=== PATIENT | male | born 1975 | race Caucasian/White ===

== ENCOUNTER 2016-06-05 22:23 | Observation (INO) | payer OTHER ==
[2016-06-05] MEDS ORDERED: Pantoprazole 40 MG Vial IVPUSH ONE (22:39)
[2016-06-05] MEDS ORDERED: Ondansetron 4 MG/2 ML SDV IVPUSH ONE (22:39)
[2016-06-05] MEDS ORDERED: Sodium Chloride 0.9% 1,000 ML IV ONE (22:39)
[2016-06-05] MEDS ORDERED: Sodium Chloride 0.9% 10 ML Syringe FLUSH PRN (22:39)
[2016-06-05] MEDS ORDERED: HYDROmorphone 2 MG/ML Syringe IVPUSH ONE (22:39)
[2016-06-05] MEDS ORDERED: Sodium Chloride 0.9% 2.5 ML Syringe FLUSH PRN (22:39)
--- NOTE | 2016-06-05 22:43 | EDM.PDOC ---
ED HPI GENERAL MEDICAL PROBLEM - General Chief Complaint: Abdominal Pain Stated Complaint: SEVERE ABDOMINAL PAIN Time Seen by Provider: 06/05/16 22:34 - History of Present Illness INITIAL COMMENTS - FREE TEXT/NARRATIVE: HISTORY AND PHYSICAL: History of present illness: The patient is a 41-year-old male with a history of hypertension and anxiety and several ER visits in the past for atypical chest pain who presents with severe upper abdominal pain that started one to 2 hours ago. He said that he ate fried srping rolls earlier and has been pushing hydration and does not drink caffeine to his anxiety and denies alcohol use. He states the pain started suddenly and then accelerated over the last one hour and as a bandlike sensation in the upper abdomen extending from the left upper abdomen to the epigastrium and to the right side. Patient denies any surgical history is an says he's always had some issues with his bowels and constipation. He only a small bowel movement today but had a normal one yesterday. He said his stool dark today but there was no blood. He's had some dry heaves and feels nauseated. He has no flank pain or urinary complaints no fevers chills chest pain or shortness of breath. Review of systems: As per history of present illness and below otherwise all systems reviewed and negative. Past medical history: As per history of present illness and as reviewed below otherwise noncontributory. Surgical history: As per history of present illness and as reviewed below otherwise noncontributory. Social history: No reported history of drug or alcohol abuse. Family history: As per history of present illness and as reviewed below otherwise noncontributory. Physical exam: General: Well-developed uncomfortable man who is nontoxic but moves easily in ED. Vital signs blood noted by me. HEENT: Atraumatic, normocephalic, pupils reactive, negative for conjunctival pallor or scleral icterus, mucous membranes moist, throat clear, neck supple, nontender, trachea midline. Lungs: Clear to auscultation, breath sounds equal bilaterally, chest nontender. Heart: S1S2, regular, negative for clicks, rubs, or JVD. Abdomen: Soft, hypoactive bowel sounds, distended but no tympany on percussion. He has tenderness throughout the entire upper abdomen and diffusely throughout but more localized to the upper bilateral upper abdomen. He has some voluntary guarding but no involuntary guarding or rebound Negative for masses or hepatosplenomegaly. Negative for costovertebral tenderness. Pelvis: Stable nontender. Genitourinary: Deferred. Rectal: Normal tone scant stool in the vault which was heme-negative Extremities: Atraumatic, negative for cords or calf pain. Neurovascular unremarkable. Neuro: Awake, alert, oriented. Cranial nerves II through XII unremarkable. Cerebellum unremarkable. Motor and sensory unremarkable throughout. Exam nonfocal. Patient and the ED has been having bilious vomit without coffee grounds or blood Diagnostics: CBC CMP amylase lipase lactic acid UA CT scan of the abdomen and pelvis Therapeutics: IV fluids Zofran Protonix Dilaudid Mefoxin 0050: Case was discussed with our surgeon Dr. Paula as CT indicates acute appendicitis. He would like me to give Mefoxin 2 g and admitted the patient and to operate on him later this morning. The patient is aware of all testing results and I will give him some more pain medications and plan for the observation admission Impression: Acute appendicitis Definitive disposition and diagnosis as appropriate pending reevaluation and review of above. Upper Abdomen Pain Score (Numeric/FACES): 10 - Related Data Allergies Allergy/AdvReac Type Severity Reaction Status Date / Time No Known Allergies Allergy Verified 06/05/16 22:33 Home Meds: Home Meds ClonazePAM [KlonoPIN] 1 mg PO QAM 06/08/13 [History] Gabapentin [Neurontin] 300 mg PO BID 06/08/13 [History] Doxylamine Succinate [Unisom Sleep Aid] 2 tab PO BEDTIME 08/15/14 [History] PARoxetine [Paxil] 10 mg PO DAILY 08/15/14 [History] ClonazePAM [KlonoPIN] 0.5 mg PO BEDTIME 09/09/14 [History] Lisinopril 2.5 mg PO DAILY 12/19/14 [History] Past Medical History - Past Health History Medical/Surgical History: Denies Medical/Surgical History HEENT History: Reports: None Cardiovascular History: Reports: Hypertension, Other (see below) Other Cardiovascular History: chest pain and SOB r/t anxiety Respiratory History: Reports: SOB, Other (see below) Other Respiratory History: SOB r/t anxiety Gastrointestinal History: Reports: Chronic diarrhea, GERD, Other (see below) Other Gastrointestinal History: Bleeding from the rectum Genitourinary History: Reports: None Musculoskeletal History: Reports: Fracture Other Musculoskeletal History: dislocation left elbow Neurological History: Reports: Migraines Psychiatric History: Reports: Anxiety, Depression, Panic attack, Psych Hospitalization(s) Endocrine/Metabolic History: Reports: None Hematologic History: Reports: None Immunologic History: Reports: None Oncologic (Cancer) History: Reports: None Dermatologic History: Reports: None - Infectious Disease History Infectious Disease History: Reports: Chicken pox - Past Surgical History HEENT Surgical History: Reports: Oral surgery, Tonsillectomy GI Surgical History: Reports: Colonoscopy Musculoskeletal Surgical History: Reports: Arthroscopic knee Social & Family History - Family History Family Medical History: Noncontributory - Tobacco Use Smoking Status *Q: Current Every Day Smoker Years of Tobacco use: 22 Packs/Tins Daily: 1 Used Tobacco, but Quit: No Second Hand Smoke Exposure: No - Alcohol Use Days Per Week of Alcohol Use: 0 - Recreational Drug Use Recreational Drug Use: No ED ROS GENERAL - Review of Systems Review Of Systems: ROS reveals no pertinent complaints other than HPI. ED EXAM, GENERAL - Physical Exam Exam: See Below (See dictation) Course - Vital Signs Last Recorded V/S: Last Vital Signs Temp 36.6 C 06/05/16 22:26 Pulse 73 06/05/16 22:26 Resp 19 06/05/16 22:26 BP 154/104 H 06/05/16 22:26 Pulse Ox 98 06/05/16 22:26 - Orders/Labs/Meds Orders: Active Orders 24 hr Category Date Time Status Patient Status [ADT] Stat ADT 06/06/16 00:53 Ordered Abdomen Pelvis w Cont [CT] Stat Exams 06/05/16 22:39 Taken HYDROmorphone [Dilaudid] Med 06/06/16 00:56 Once 1 mg IVPUSH ONETIME ONE Sodium Chloride 0.9% [Saline Flush] Med 06/05/16 22:39 Active 10 ml FLUSH ASDIRECTED PRN Sodium Chloride 0.9% [Saline Flush] Med 06/05/16 22:39 Active 2.5 ml FLUSH ASDIRECTED PRN cefOXitin [Mefoxin in Dextrose,Iso-Osm 2 GM/50 ML] 2 gm Med 06/06/16 00:51 Ordered Premix Bag 1 bag IV ONETIME Saline Lock Insert [OM.PC] Stat Oth 06/05/16 22:38 Ordered Medication Orders Cefoxitin Sodium 2 gm/ Premix 50 mls @ 100 mls/hr IV ONETIME ONE Stop: 06/06/16 01:20 Sodium Chloride (Saline Flush) 10 ml FLUSH ASDIRECTED PRN PRN Reason: Keep Vein Open Sodium Chloride (Saline Flush) 2.5 ml FLUSH ASDIRECTED PRN PRN Reason: Keep Vein Open Labs: Laboratory Tests 06/05/16 06/05/16 06/05/16 Range/Units 22:53 22:53 22:53 WBC 16.12 H (4.0-11.0) K/uL RBC 5.21 (4.50-5.90) M/uL Hgb 15.3 (13.0-17.0) g/dL Hct 44.8 (38.0-50.0) % MCV 86.0 (80.0-98.0) fL MCH 29.4 (27.0-32.0) pg MCHC 34.2 (31.0-37.0) g/dL RDW Std Deviation 43.1 (28.0-62.0) fl RDW Coeff of [place] 14 (11.0-15.0) % Plt Count 223 (150-400) K/uL MPV 10.40 (7.40-12.00) fL Neut % (Auto) 73.5 (48.0-80.0) % Lymph % (Auto) 19.9 (16.0-40.0) % Lucas % (Auto) 5.2 (0.0-15.0) % Eos % (Auto) 1.2 (0.0-7.0) % Baso % (Auto) 0.2 (0.0-1.5) % Neut # (Auto) 11.9 H (1.4-5.7) K/uL Lymph # (Auto) 3.2 H (0.6-2.4) K/uL Lucas # (Auto) 0.8 (0.0-0.8) K/uL Eos # (Auto) 0.2 (0.0-0.7) K/uL Baso # (Auto) 0.0 (0.0-0.1) K/uL Nucleated RBC % 0.0 /100WBC Nucleated RBCs # 0 K/uL Lactate 1.4 (0.20-2.00) mmol/L Sodium 139 (136-146) mmol/L Potassium 3.9 (3.5-5.1) mmol/L Chloride 108 (98-110) mmol/L Carbon Dioxide 19 L (21-31) mmol/L BUN 7 (6.0-23.0) mg/dL Creatinine 0.9 (0.6-1.5) mg/dL Est Cr Clr Drug Dosing 94.91 mL/min Estimated GFR (MDRD) > 60.0 ml/min Glucose 101 (60-110) mg/dL Calcium 8.7 L (8.8-10.8) mg/dL Total Bilirubin 0.3 (0.1-1.5) mg/dL AST 23 (5-40) IU/L ALT 32 (8-54) IU/L Alkaline Phosphatase 91 (40-150) Total Protein 7.4 (6.0-8.0) g/dL Albumin 4.5 (3.5-5.0) g/dL Globulin 2.9 (2.0-3.5) g/dL Albumin/Globulin Ratio 1.6 (1.3-2.8) Amylase 42 (10-90) U/L Lipase 18 (7-80) U/L Urine Color Urine Appearance Urine pH (5.0-8.0) Ur Specific [place] (1.001-1.035) Urine Protein (NEGATIVE) mg/dL Urine Glucose (UA) (NEGATIVE) mg/dL Urine Ketones (NEGATIVE) mg/dL Urine Occult Blood (NEGATIVE) Urine Nitrite (NEGATIVE) Urine Bilirubin (NEGATIVE) Urine Urobilinogen (<2.0) EU/dL Ur Leukocyte Esterase (NEGATIVE) Urine RBC (0-2/HPF) Urine WBC (0-5/HPF) Ur Epithelial Cells (NONE-FEW) Urine Bacteria (NEGATIVE) Urine Mucus (NONE-MOD) 06/05/16 Range/Units 23:50 WBC (4.0-11.0) K/uL RBC (4.50-5.90) M/uL Hgb (13.0-17.0) g/dL Hct (38.0-50.0) % MCV (80.0-98.0) fL MCH (27.0-32.0) pg MCHC (31.0-37.0) g/dL RDW Std Deviation (28.0-62.0) fl RDW Coeff of [place] (11.0-15.0) % Plt Count (150-400) K/uL MPV (7.40-12.00) fL Neut % (Auto) (48.0-80.0) % Lymph % (Auto) (16.0-40.0) % Lucas % (Auto) (0.0-15.0) % Eos % (Auto) (0.0-7.0) % Baso % (Auto) (0.0-1.5) % Neut # (Auto) (1.4-5.7) K/uL Lymph # (Auto) (0.6-2.4) K/uL Lucas # (Auto) (0.0-0.8) K/uL Eos # (Auto) (0.0-0.7) K/uL Baso # (Auto) (0.0-0.1) K/uL Nucleated RBC % /100WBC Nucleated RBCs # K/uL Lactate (0.20-2.00) mmol/L Sodium (136-146) mmol/L Potassium (3.5-5.1) mmol/L Chloride (98-110) mmol/L Carbon Dioxide (21-31) mmol/L BUN (6.0-23.0) mg/dL Creatinine (0.6-1.5) mg/dL Est Cr Clr Drug Dosing mL/min Estimated GFR (MDRD) ml/min Glucose (60-110) mg/dL Calcium (8.8-10.8) mg/dL Total Bilirubin (0.1-1.5) mg/dL AST (5-40) IU/L ALT (8-54) IU/L Alkaline Phosphatase (40-150) Total Protein (6.0-8.0) g/dL Albumin (3.5-5.0) g/dL Globulin (2.0-3.5) g/dL Albumin/Globulin Ratio (1.3-2.8) Amylase (10-90) U/L Lipase (7-80) U/L Urine Color YELLOW Urine Appearance CLEAR Urine pH 6.0 (5.0-8.0) Ur Specific [place] 1.025 (1.001-1.035) Urine Protein NEGATIVE (NEGATIVE) mg/dL Urine Glucose (UA) NEGATIVE (NEGATIVE) mg/dL Urine Ketones NEGATIVE (NEGATIVE) mg/dL Urine Occult Blood TRACE-INTACT (NEGATIVE) Urine Nitrite NEGATIVE (NEGATIVE) Urine Bilirubin NEGATIVE (NEGATIVE) Urine Urobilinogen 0.2 (<2.0) EU/dL Ur Leukocyte Esterase NEGATIVE (NEGATIVE) Urine RBC 0-2 (0-2/HPF) Urine WBC 0-1 (0-5/HPF) Ur Epithelial Cells OCCASIONAL (NONE-FEW) Urine Bacteria FEW (NEGATIVE) Urine Mucus LIGHT (NONE-MOD) Meds: Medications Generic Name Dose Route Start Last Admin Trade Name Freq PRN Reason Stop Dose Admin Cefoxitin Sodium 2 gm/ Premix 50 mls @ 100 mls/hr 06/06/16 00:51 IV 06/06/16 01:20 ONETIME ONE Sodium Chloride 10 ml 06/05/16 22:39 Saline Flush FLUSH ASDIRECTED PRN Keep Vein Open Sodium Chloride 2.5 ml 06/05/16 22:39 Saline Flush FLUSH ASDIRECTED PRN Keep Vein Open Discontinued Medications Generic Name Dose Route Start Last Admin Trade Name Freq PRN Reason Stop Dose Admin Hydromorphone HCl 1 mg 06/05/16 22:39 06/05/16 23:18 Dilaudid IVPUSH 06/05/16 22:40 1 mg ONETIME ONE Administration Sodium Chloride 1,000 mls @ 999 mls/hr 06/05/16 22:39 06/05/16 23:10 Normal Saline IV 06/05/16 23:39 999 mls/hr STAT ONE Administration Iopamidol 100 ml 06/05/16 23:56 06/06/16 00:43 Isovue-370 (76%) IVPUSH 06/05/16 23:57 100 ml ONETIME STA Administration Ondansetron HCl 4 mg 06/05/16 22:39 06/05/16 23:15 Zofran IVPUSH 06/05/16 22:40 4 mg ONETIME ONE Administration Pantoprazole Sodium 80 mg 06/05/16 22:39 06/05/16 23:24 Protonix Iv IVPUSH 06/05/16 22:40 80 mg .BOLUS ONE Administration Departure - Departure Time of Disposition: 00:59 Disposition: Refer to Observation Condition: good Clinical Impression: Appendicitis Qualifiers: Appendicitis type: acute appendicitis Acute appendicitis type: unspecified acute appendicitis type Qualified Code(s): K35.80 - Unspecified acute appendicitis Forms: ED Department Discharge - My Orders Last 24 Hours: My Active Orders 06/05/16 22:38 Saline Lock Insert [OM.PC] Stat 06/05/16 22:39 Abdomen Pelvis w Cont [CT] Stat Sodium Chloride 0.9% [Saline Flush] 10 ml FLUSH ASDIRECTED PRN Sodium Chloride 0.9% [Saline Flush] 2.5 ml FLUSH ASDIRECTED PRN 06/06/16 00:51 cefOXitin [Mefoxin in Dextrose,Iso-Osm 2 GM/50 ML] 2 gm Premix Bag 1 bag IV ONETIME 06/06/16 00:53 Patient Status [ADT] Stat 06/06/16 00:56 HYDROmorphone [Dilaudid] 1 mg IVPUSH ONETIME ONE - Assessment/Plan Last 24 Hours: My Active Orders 06/05/16 22:38 Saline Lock Insert [OM.PC] Stat 06/05/16 22:39 Abdomen Pelvis w Cont [CT] Stat Sodium Chloride 0.9% [Saline Flush] 10 ml FLUSH ASDIRECTED PRN Sodium Chloride 0.9% [Saline Flush] 2.5 ml FLUSH ASDIRECTED PRN 06/06/16 00:51 cefOXitin [Mefoxin in Dextrose,Iso-Osm 2 GM/50 ML] 2 gm Premix Bag 1 bag IV ONETIME 06/06/16 00:53 Patient Status [ADT] Stat 06/06/16 00:56 HYDROmorphone [Dilaudid] 1 mg IVPUSH ONETIME ONE
[2016-06-05 23:23] LABS: CHLORIDE,CL 108 mmol/L (98-110); SODIUM,NA 139 mmol/L (136-146)
[2016-06-05] MEDS ORDERED: Iopamidol 755 Mg/ML 100 ML Bottle IVPUSH STA (23:56)
[2016-06-06] MEDS ORDERED: cefOXitin 2 GM in Premix Bag 1 BAG IV ONE (00:51)
[2016-06-06] MEDS ORDERED: HYDROmorphone 2 MG/ML Syringe IVPUSH ONE ×2 (00:56→08:44)
[2016-06-06] MEDS: Lactated Ringers 1,000 ML IV SCH ×2 (01:40→13:54)
[2016-06-06] MEDS ORDERED: LORazepam 2 MG/ML MDV IVPUSH ONE (02:48)
[2016-06-06] MEDS ORDERED: Ondansetron 4 MG/2 ML SDV IVPUSH PRN ×2 (02:48→09:21)
[2016-06-06] MEDS ORDERED: LORazepam 2 MG/ML MDV IVPUSH PRN (02:52)
[2016-06-06] MEDS: Morphine 2 MG/ML Syringe IVPUSH PRN ×5 (03:05→07:19)
[2016-06-06] MEDS ORDERED: Lidocaine 2% 5 ML SDV ONE (07:33)
[2016-06-06] MEDS ORDERED: fentaNYL 250 MCG/5 ML SDV ONE (07:34)
[2016-06-06] MEDS ORDERED: Midazolam 1 MG/ML 2 ML SDV ONE (07:34)
[2016-06-06] MEDS ORDERED: Propofol 200 MG/20 ML SDV ONE (07:34)
--- NOTE | 2016-06-06 07:35 | PCM.HP ---
H&P History of Present Illness - General Date of Service: 06/06/16 Admit Problem/Dx: Abdominal pain, with nausea, and vomiting. Source of Information: Patient History Limitations: Reports: No limitations - History of Present Illness Symptom Onset Date: 06/05/16 Symptom Onset Time: 19:00 Location: Reports: abdomen Quality: Reports: Ache, Pressure Severity: moderate Improves with: Reports: Rest Worsens with: Reports: Movement Context: Reports: sick contact Associated Symptoms: Reports: loss of appetite, nausea/vomiting. Denies: fever/ chills Upper Abdomen Pain Score (Numeric/FACES): 10 - Related Data Allergies/Adverse Reactions: Allergies Allergy/AdvReac Type Severity Reaction Status Date / Time No Known Allergies Allergy Verified 06/05/16 22:33 Home Medications: Home Meds ClonazePAM [KlonoPIN] 1 mg PO QAM 06/08/13 [History] Gabapentin [Neurontin] 300 mg PO BID 06/08/13 [History] Doxylamine Succinate [Unisom Sleep Aid] 2 tab PO BEDTIME 08/15/14 [History] PARoxetine [Paxil] 10 mg PO DAILY 08/15/14 [History] ClonazePAM [KlonoPIN] 0.25 mg PO BEDTIME 06/06/16 [History] Lisinopril [Prinivil] 10 mg PO DAILY 06/06/16 [History] Past Medical History - Past Health History Medical/Surgical History: Denies Medical/Surgical History HEENT History: Reports: None Cardiovascular History: Reports: Hypertension, Other (see below) Other Cardiovascular History: chest pain and SOB r/t anxiety Respiratory History: Reports: SOB, Other (see below) Other Respiratory History: SOB r/t anxiety Gastrointestinal History: Reports: Chronic diarrhea, GERD, Other (see below) Other Gastrointestinal History: Bleeding from the rectum Genitourinary History: Reports: None Musculoskeletal History: Reports: Fracture Other Musculoskeletal History: dislocation left elbow Neurological History: Reports: Migraines Psychiatric History: Reports: Anxiety, Depression, Panic attack, Psych Hospitalization(s) Endocrine/Metabolic History: Reports: None Hematologic History: Reports: None Immunologic History: Reports: None Oncologic (Cancer) History: Reports: None Dermatologic History: Reports: None - Infectious Disease History Infectious Disease History: Reports: Chicken pox - Past Surgical History HEENT Surgical History: Reports: Oral surgery, Tonsillectomy GI Surgical History: Reports: Colonoscopy Musculoskeletal Surgical History: Reports: Arthroscopic knee Social & Family History - Family History Family Medical History: Noncontributory - Tobacco Use Smoking Status *Q: Current Every Day Smoker Years of Tobacco use: 22 Packs/Tins Daily: 1 Used Tobacco, but Quit: No Second Hand Smoke Exposure: Yes - Caffeine Use Caffeine Use: Reports: None - Alcohol Use Days Per Week of Alcohol Use: 0 - Recreational Drug Use Recreational Drug Use: No H&P Review of Systems - Review of Systems: Review Of Systems: See Below General: Denies: fever, chills HEENT: Reports: no symptoms Pulmonary: Denies: Shortness of Breath, Wheezing Cardiovascular: Denies: chest pain Gastrointestinal: Reports: Abdominal pain, Anorexia, Decreased appetite, Nausea , Vomiting. Denies: Black stool, Bloody stool, Constipation, Diarrhea Genitourinary: Reports: no symptoms Musculoskeletal: Reports: no symptoms Skin: Reports: no symptoms Psychiatric: Reports: anxiety Neurological: Reports: No Symptoms Hematologic/Lymphatic: Reports: no symptoms Immunologic: Reports: no symptoms Exam - Exam Exam: See Below - Vital Signs Vital Signs: Last Vital Signs Temp 98.2 F 06/06/16 04:00 Pulse 61 06/06/16 04:00 Resp 16 06/06/16 04:00 BP 127/83 06/06/16 04:00 Pulse Ox 96 06/06/16 04:00 Weight: 177 lb 11.2 oz - Exam General: alert, oriented, cooperative, moderate distress HEENT: Conjunctiva clear, EACs clear, EOMI, Pupils equal, Pupils reactive Neck: supple, trachea midline Lungs: Clear to auscultation, Normal respiratory effort Cardiovascular: regular rate, regular rhythm, normal S1, normal S2. No: tachycardia Abdomen: normal bowel sounds, soft, peritoneal signs, guarding, rebound, tenderness, McBurney's sign, Rovsing's sign. No: distention, rigidity (Male) Exam: No hernia Rectal (Males) Exam: Deferred Back Exam: normal inspection Extremities: normal inspection, normal pulses Skin: warm, dry, intact Neurological: cranial nerves intact, reflexes equal bilateral Psychiatric: alert, normal affect, normal mood, anxious - Patient Data Result Diagrams: 06/05/16 22:53 06/05/16 22:53 *Q Meaningful Use (ADM) - VTE *Q VTE Criteria *Q: - Stroke *Q Stroke Criteria *Q: - AMI *Q AMI Criteria *Q: - Problem List (1) Appendicitis SNOMED Code(s): 28865374 ICD Code: K37 - UNSPECIFIED APPENDICITIS Status: Acute Priority: High Current Visit: Yes Qualifiers: Appendicitis type: acute appendicitis Acute appendicitis type: unspecified acute appendicitis type Qualified Code(s): K35.80 - Unspecified acute appendicitis (2) Anxiety disorder SNOMED Code(s): 231272592 ICD Code: F41.9 - ANXIETY DISORDER, UNSPECIFIED Status: Acute Priority: Medium Current Visit: Yes Onset Date: 08/28/13 Problem List Initiated/Reviewed/Updated: Yes Orders Last 24hrs: Active Orders 24 hr Category Date Time Status Antiembolic Devices [RC] PER UNIT ROUTINE Care 06/06/16 01:13 Active Nothing per Oral Now Diet [DIET] Diet 06/06/16 Breakfast Active LORazepam [Ativan] Med 06/06/16 02:52 Active 1 mg IVPUSH BID PRN Lactated Ringers [Ringers, Lactated] 1,000 ml Med 06/06/16 01:45 Active IV ASDIRECTED Morphine Med 06/06/16 02:48 Active See Dose Instructions IVPUSH Q1H PRN Ondansetron [Zofran] Med 06/06/16 02:48 Active 4 mg IVPUSH Q4H PRN Antiembolic Hose [OM.PC] Routine Oth 06/06/16 01:13 Ordered SCD [Sequential Compression Device] [OM.PC] Routine Oth 06/06/16 01:13 Ordered Code Status [Resuscitation Status] Routine Resus Stat 06/06/16 03:22 Ordered Medication Orders Lactated Ringer's (Ringers, Lactated) 1,000 mls @ 125 mls/hr IV ASDIRECTED NÉSTOR Last Admin: 06/06/16 01:40 Dose: 125 mls/hr Lorazepam (Ativan) 1 mg IVPUSH BID PRN PRN Reason: Anxiety Morphine Sulfate (Morphine) 0 mg IVPUSH Q1H PRN PRN Reason: Pain Last Admin: 06/06/16 07:19 Dose: 2 mg Admin: 06/06/16 06:56 Dose: 2 mg Admin: 06/06/16 05:50 Dose: 1.5 mg Admin: 06/06/16 04:19 Dose: 1 mg Admin: 06/06/16 03:05 Dose: 1 mg Ondansetron HCl (Zofran) 4 mg IVPUSH Q4H PRN PRN Reason: Nausea/Vomiting Last Admin: 06/06/16 05:54 Dose: 4 mg Sodium Chloride (Saline Flush) 10 ml FLUSH ASDIRECTED PRN PRN Reason: Keep Vein Open Last Admin: 06/06/16 01:38 Dose: 10 ml Sodium Chloride (Saline Flush) 2.5 ml FLUSH ASDIRECTED PRN PRN Reason: Keep Vein Open Assessment/Plan Comment:: Acute appendicitis. CT scan did not reveal any periappendiceal fluid or rupture. Laparoscopic appendectomy, possible open appendectomy. Both operative procedures, along with the risks, including, but not limited to, bleeding, infection, pneumonia, deep venous thrombosis, pulmonary emboli, myocardial infarction, and adjacent organ injury have been reviewed with the patient who voices understanding, offers no questions and agrees to proceed.
[2016-06-06] MEDS ORDERED: Ketorolac 30 MG/ML SDV ONE (07:38)
[2016-06-06] MEDS ORDERED: Rocuronium 10 MG/ML 10 ML Syringe ONE (07:38)
[2016-06-06] MEDS ORDERED: Neostigmine Methylsulfate 1 MG/ML 5 ML Syringe ONE (07:38)
[2016-06-06] MEDS ORDERED: Ondansetron 4 MG/2 ML SDV ONE (07:38)
[2016-06-06] MEDS ORDERED: Succinylcholine/Normal Saline 200 MG/10 ML Syringe ONE (07:38)
[2016-06-06] MEDS ORDERED: HYDROmorphone 2 MG/ML Syringe ONE (07:44)
[2016-06-06] MEDS ORDERED: Bupivacaine 0.5% 30 ML SDV ONE (07:47)
[2016-06-06] MEDS ORDERED: ceFAZolin 1 GM Vial ONE (07:47)
[2016-06-06] MEDS ORDERED: cefOXitin 1 GM Vial ONE (08:21)
--- NOTE | 2016-06-06 08:36 | PCM.PREANE ---
Preanesthetic Assessment - Anesthesia/Transfusion/Family Hx Anesthesia History: Prior Anesthesia Without Reaction Type of Anesthesia Reaction: Unknown Family History of Anesthesia Reaction: No Transfusion History: No Prior Transfusion(s) Intubation History: Unknown - Review of Systems General: No Symptoms Pulmonary: No Symptoms Cardiovascular: No Symptoms Gastrointestinal: Abdominal pain Neurological: No Symptoms Other: Reports: None - Physical Assessment O2 Sat by Pulse Oximetry: 96 Respiratory Rate: 18 Vital Signs: Last Vital Signs Temp 37.0 C 06/06/16 08:28 Pulse 89 06/06/16 08:28 Resp 18 06/06/16 08:28 BP 133/78 06/06/16 08:28 Pulse Ox 96 06/06/16 08:28 Height: 1.65 m Weight: 80.603 kg ASA Class: 2E Mental Status: Alert & Oriented x3 Airway Class: Mallampati = 2 Dentition: Reports: Normal Dentition Thyro-Mental Finger Breadths: 3 Mouth Opening Finger Breadths: 2 ROM/Head Extension: Limited/Partial Lungs: Clear to auscultation, Normal respiratory effort Cardiovascular: Regular Rate, Regular Rhythm - Lab Values: Laboratory Last Values WBC 16.12 K/uL (4.0-11.0) H 06/05/16 22:53 RBC 5.21 M/uL (4.50-5.90) 06/05/16 22:53 Hgb 15.3 g/dL (13.0-17.0) 06/05/16 22:53 Hct 44.8 % (38.0-50.0) 06/05/16 22:53 MCV 86.0 fL (80.0-98.0) 06/05/16 22:53 MCH 29.4 pg (27.0-32.0) 06/05/16 22:53 MCHC 34.2 g/dL (31.0-37.0) 06/05/16 22:53 RDW Std Deviation 43.1 fl (28.0-62.0) 06/05/16 22:53 RDW Coeff of [place] 14 % (11.0-15.0) 06/05/16 22:53 Plt Count 223 K/uL (150-400) 06/05/16 22:53 MPV 10.40 fL (7.40-12.00) 06/05/16 22:53 Neut % (Auto) 73.5 % (48.0-80.0) 06/05/16 22:53 Lymph % (Auto) 19.9 % (16.0-40.0) 06/05/16 22:53 [place] % (Auto) 5.2 % (0.0-15.0) 06/05/16 22:53 Eos % (Auto) 1.2 % (0.0-7.0) 06/05/16 22:53 Baso % (Auto) 0.2 % (0.0-1.5) 06/05/16 22:53 Neut # (Auto) 11.9 K/uL (1.4-5.7) H 06/05/16 22:53 Lymph # (Auto) 3.2 K/uL (0.6-2.4) H 06/05/16 22:53 [place]ley # (Auto) 0.8 K/uL (0.0-0.8) 06/05/16 22:53 Eos # (Auto) 0.2 K/uL (0.0-0.7) 06/05/16 22:53 Baso # (Auto) 0.0 K/uL (0.0-0.1) 06/05/16 22:53 Nucleated RBC % 0.0 /100WBC 06/05/16 22:53 Nucleated RBCs # 0 K/uL 06/05/16 22:53 Lactate 1.4 mmol/L (0.20-2.00) 06/05/16 22:53 Sodium 139 mmol/L (136-146) 06/05/16 22:53 Potassium 3.9 mmol/L (3.5-5.1) 06/05/16 22:53 Chloride 108 mmol/L (98-110) 06/05/16 22:53 Carbon Dioxide 19 mmol/L (21-31) L 06/05/16 22:53 BUN 7 mg/dL (6.0-23.0) 06/05/16 22:53 Creatinine 0.9 mg/dL (0.6-1.5) 06/05/16 22:53 Est Cr Clr Drug Dosing 94.91 mL/min 06/05/16 22:53 Estimated GFR (MDRD) > 60.0 ml/min 06/05/16 22:53 Glucose 101 mg/dL (60-110) 06/05/16 22:53 Calcium 8.7 mg/dL (8.8-10.8) L 06/05/16 22:53 Total Bilirubin 0.3 mg/dL (0.1-1.5) 06/05/16 22:53 AST 23 IU/L (5-40) 06/05/16 22:53 ALT 32 IU/L (8-54) 06/05/16 22:53 Alkaline Phosphatase 91 (40-150) 06/05/16 22:53 Total Protein 7.4 g/dL (6.0-8.0) 06/05/16 22:53 Albumin 4.5 g/dL (3.5-5.0) 06/05/16 22:53 Globulin 2.9 g/dL (2.0-3.5) 06/05/16 22:53 Albumin/Globulin Ratio 1.6 (1.3-2.8) 06/05/16 22:53 Amylase 42 U/L (10-90) 06/05/16 22:53 Lipase 18 U/L (7-80) 06/05/16 22:53 Urine Color YELLOW 06/05/16 23:50 Urine Appearance CLEAR 06/05/16 23:50 Urine pH 6.0 (5.0-8.0) 06/05/16 23:50 Ur Specific [place] 1.025 (1.001-1.035) 06/05/16 23:50 Urine Protein NEGATIVE mg/dL (NEGATIVE) 06/05/16 23:50 Urine Glucose (UA) NEGATIVE mg/dL (NEGATIVE) 06/05/16 23:50 Urine Ketones NEGATIVE mg/dL (NEGATIVE) 06/05/16 23:50 Urine Occult Blood TRACE-INTACT (NEGATIVE) 06/05/16 23:50 Urine Nitrite NEGATIVE (NEGATIVE) 06/05/16 23:50 Urine Bilirubin NEGATIVE (NEGATIVE) 06/05/16 23:50 Urine Urobilinogen 0.2 EU/dL (<2.0) 06/05/16 23:50 Ur Leukocyte Esterase NEGATIVE (NEGATIVE) 06/05/16 23:50 Urine RBC 0-2 (0-2/HPF) 06/05/16 23:50 Urine WBC 0-1 (0-5/HPF) 06/05/16 23:50 Ur Epithelial Cells OCCASIONAL (NONE-FEW) 06/05/16 23:50 Urine Bacteria FEW (NEGATIVE) 06/05/16 23:50 Urine Mucus LIGHT (NONE-MOD) 06/05/16 23:50 - Allergies Allergies/Adverse Reactions: Allergies Allergy/AdvReac Type Severity Reaction Status Date / Time No Known Allergies Allergy Verified 06/05/16 22:33 - Blood Blood Available: No - Acknowledgements Anesthesia Type Planned: General Anesthesia Pt an Appropriate Candidate for the Planned Anesthesia: Yes Alternatives and Risks of Anesthesia Discussed w Pt/Guardian: Yes Pt/Guardian Understands and Agrees with Anesthesia Plan: Yes PreAnesthesia Questionnaire - Past Health History Medical/Surgical History: Denies Medical/Surgical History HEENT History: Reports: None Cardiovascular History: Reports: Hypertension, Other (see below) Other Cardiovascular History: chest pain and SOB r/t anxiety Respiratory History: Reports: SOB, Other (see below) Other Respiratory History: SOB r/t anxiety Gastrointestinal History: Reports: Chronic diarrhea, GERD, Other (see below) Other Gastrointestinal History: Bleeding from the rectum Genitourinary History: Reports: None Musculoskeletal History: Reports: Fracture Other Musculoskeletal History: dislocation left elbow Neurological History: Reports: Migraines Psychiatric History: Reports: Anxiety, Depression, Panic attack, Psych Hospitalization(s) Endocrine/Metabolic History: Reports: None Hematologic History: Reports: None Immunologic History: Reports: None Oncologic (Cancer) History: Reports: None Dermatologic History: Reports: None - Infectious Disease History Infectious Disease History: Reports: Chicken pox - Past Surgical History HEENT Surgical History: Reports: Oral surgery, Tonsillectomy GI Surgical History: Reports: Colonoscopy Musculoskeletal Surgical History: Reports: Arthroscopic knee (left knee), Other (see below) (left elbow dislocation) - SUBSTANCE USE Smoking Status *Q: Current Every Day Smoker Tobacco Use Within Last Twelve Months: Cigarettes Second Hand Smoke Exposure: Yes Days Per Week of Alcohol Use: 0 Recreational Drug Use History: No - HOME MEDS Home Medications: Home Meds ClonazePAM [KlonoPIN] 1 mg PO QAM 06/08/13 [History] Gabapentin [Neurontin] 300 mg PO BID 06/08/13 [History] Doxylamine Succinate [Unisom Sleep Aid] 2 tab PO BEDTIME 08/15/14 [History] PARoxetine [Paxil] 10 mg PO DAILY 08/15/14 [History] ClonazePAM [KlonoPIN] 0.25 mg PO BEDTIME 06/06/16 [History] Lisinopril [Prinivil] 10 mg PO DAILY 06/06/16 [History] - CURRENT (IN HOUSE) MEDS Current Meds: Current Medications Lactated Ringer's (Ringers, Lactated) 1,000 mls @ 125 mls/hr IV ASDIRECTED NÉSTOR Last Admin: 06/06/16 01:40 Dose: 125 mls/hr Lorazepam (Ativan) 1 mg IVPUSH BID PRN PRN Reason: Anxiety Morphine Sulfate (Morphine) 0 mg IVPUSH Q1H PRN PRN Reason: Pain Last Admin: 06/06/16 07:19 Dose: 2 mg Ondansetron HCl (Zofran) 4 mg IVPUSH Q4H PRN PRN Reason: Nausea/Vomiting Last Admin: 06/06/16 05:54 Dose: 4 mg Sodium Chloride (Saline Flush) 10 ml FLUSH ASDIRECTED PRN PRN Reason: Keep Vein Open Last Admin: 06/06/16 01:38 Dose: 10 ml Sodium Chloride (Saline Flush) 2.5 ml FLUSH ASDIRECTED PRN PRN Reason: Keep Vein Open Discontinued Medications Bupivacaine HCl (Marcaine 0.5%) Confirm Administered Dose 30 ml .ROUTE .STK-MED ONE Stop: 06/06/16 07:48 Cefazolin Sodium (Ancef) Confirm Administered Dose 1 gm .ROUTE .STK-MED ONE Stop: 06/06/16 07:48 Cefoxitin Sodium (Mefoxin) Confirm Administered Dose 1 gm .ROUTE .STK-MED ONE Stop: 06/06/16 08:22 Fentanyl (Sublimaze) Confirm Administered Dose 250 mcg .ROUTE .STK-MED ONE Stop: 06/06/16 07:35 Glycopyrrolate () Confirm Administered Dose 1 mg .ROUTE .STK-MED ONE Stop: 06/06/16 07:39 Hydromorphone HCl (Dilaudid) 1 mg IVPUSH ONETIME ONE Stop: 06/05/16 22:40 Last Admin: 06/05/16 23:18 Dose: 1 mg Hydromorphone HCl (Dilaudid) 1 mg IVPUSH ONETIME ONE Stop: 06/06/16 00:57 Last Admin: 06/06/16 01:38 Dose: 1 mg Hydromorphone HCl (Dilaudid) Confirm Administered Dose 2 mg .ROUTE .STK-MED ONE Stop: 06/06/16 07:45 Sodium Chloride (Normal Saline) 1,000 mls @ 999 mls/hr IV STAT ONE Stop: 06/05/16 23:39 Last Admin: 06/05/16 23:10 Dose: 999 mls/hr Cefoxitin Sodium 2 gm/ Premix 50 mls @ 100 mls/hr IV ONETIME ONE Stop: 06/06/16 01:20 Last Admin: 06/06/16 01:42 Dose: 100 mls/hr Iopamidol (Isovue-370 (76%)) 100 ml IVPUSH ONETIME STA Stop: 06/05/16 23:57 Last Admin: 06/06/16 00:43 Dose: 100 ml Ketorolac Tromethamine (Toradol) Confirm Administered Dose 30 mg .ROUTE .STK- MED ONE Stop: 06/06/16 07:39 Lidocaine (Xylocaine-Mpf 2%) Confirm Administered Dose 10 ml .ROUTE .STK-MED ONE Stop: 06/06/16 07:34 Lorazepam (Ativan) 1 mg IVPUSH ONETIME ONE Stop: 06/06/16 02:49 Last Admin: 06/06/16 02:58 Dose: Not Given Midazolam HCl (Versed 1 Mg/Ml) Confirm Administered Dose 2 mg .ROUTE .STK-MED ONE Stop: 06/06/16 07:35 Neostigmine Methylsulfate (Neostigmine) Confirm Administered Dose 5 mg .ROUTE .STK-MED ONE Stop: 06/06/16 07:39 Ondansetron HCl (Zofran) 4 mg IVPUSH ONETIME ONE Stop: 06/05/16 22:40 Last Admin: 06/05/16 23:15 Dose: 4 mg Ondansetron HCl (Zofran) Confirm Administered Dose 4 mg .ROUTE .STK-MED ONE Stop: 06/06/16 07:39 Pantoprazole Sodium (Protonix Iv) 80 mg IVPUSH .BOLUS ONE Stop: 06/05/16 22:40 Last Admin: 06/05/16 23:24 Dose: 80 mg Propofol (Diprivan 20 Ml) Confirm Administered Dose 400 mg .ROUTE .STK-MED ONE Stop: 06/06/16 07:35 Rocuronium [place] (Zemuron) Confirm Administered Dose 100 mg .ROUTE .STK-MED ONE Stop: 06/06/16 07:39 Succinylcholine Chloride (Succinylcholine In Ns Pf) Confirm Administered Dose 200 mg .ROUTE .STK-MED ONE Stop: 06/06/16 07:39
[2016-06-06] MEDS ORDERED: fentaNYL 100 MCG/2 ML SDV IVPUSH PRN (08:44)
[2016-06-06] MEDS ORDERED: Morphine 10 MG/ML Syringe IVPUSH PRN (09:21)
[2016-06-06] MEDS ORDERED: Acetaminophen/HYDROcodone 325-5 MG Tab PO PRN (09:21)
[2016-06-06] MEDS ORDERED: Acetaminophen 325 MG Tab PO PRN (09:21)
--- NOTE | 2016-06-06 09:25 | PCM.OPNOTE ---
- General Post-Op/Procedure Note Date of Surgery/Procedure: 06/06/16 Operative Procedure(s): Laparoscopic appendectomy Findings: Acute appendicitis without rupture Pre Op Diagnosis: Acute abdomen Post-Op Diagnosis: Acute appendicitis Anesthesia Technique: General ET tube (ASA IIE) Primary Surgeon: Joon Paula Fluid Replacement, Intraop: 1,700 EBL in mLs: 10 Condition: Fair Free Text/Narrative:: Intake & Output 06/05/16 06/06/16 06/06/16 19:59 03:59 11:59 Intake Total 0 Output Total 250 Balance -250 Dictation [id number]
[2016-06-06] MEDS ORDERED: Lactated Ringers 1,000 ML IV SCH (09:30)
[2016-06-06] MEDS ORDERED: cefOXitin 1 GM in Premix Bag 1 BAG IV SCH ×2 (09:30→16:00)
--- NOTE | 2016-06-06 10:22 | PCM.POSTAN ---
POST ANESTHESIA ASSESSMENT - MENTAL STATUS Mental Status: alert, oriented - RESPIRATORY Respiratory Status: respiratory rate WNL, airway patent, O2 saturation stable, supplemental oxygen - CARDIOVASCULAR CV Status: pulse rate WNL, blood pressure stable - GASTROINTESTINAL GI Status: no symptoms - PAIN Pain Score: 0 - POST OP HYDRATION Hydration Status: adequate & stable
--- NOTE | 2016-06-06 12:25 | CT ---
EXAM DATE: 06/06/16 PATIENT'S AGE: 41 Patient: LAYO HERNADEZ Facility: [place], [place] Site . Site : 1975 Study: CT Abdomen/Pelvis [id number]/17/2017 12:21:10 AM Ordering Physician: González Final Report: INDICATION: Abdominal pain TECHNIQUE: CT abdomen and pelvis acquired with i.v. contrast. Coronal and sagittal reformats were obtained. COMPARISON: None FINDINGS: Lower chest: Unremarkable. Liver: Unremarkable. Spleen: Unremarkable. Pancreas: Unremarkable. Gallbladder and bile ducts: Unremarkable. Kidneys: Excretion of contrast into the renal collecting systems and ureters are noted, which limits evaluation for the presence of stones. No kidney or ureteral stones and no hydronephrosis seen. Adrenal glands: Unremarkable. GI tract: Unremarkable. The base of the appendix measures 1.3 cm in diameter with mild wall thickening. No surrounding inflammatory changes or fluid collections are identified. There is hyperdense material within the lumen of the appendiceal base which may be due to inspissated barium or proteinaceous material. Vascular: Unremarkable. Lymph nodes: Unremarkable. Miscellaneous: Unremarkable. No pneumoperitoneum is seen. No significant ascites is noted. Pelvic Organs: Unremarkable. Bones: Unremarkable for age. IMPRESSION: 1. The appendix is distended with wall thickening noted. These findings are most likely due to acute appendicitis. No periappendiceal abscess is seen. Dictated by Dustin Paula MD @ 06/06/2016 12:29:22 AM Dictated by: Dustin Paula MD @ 06/06/2016 00:32:00 (Electronic Signature) Report Signed by Proxy and Original Signed Document filed in the Medical Record. [facility]
--- NOTE | 2016-06-06 13:01 | OR ---
SURGEON: Joon Paula M.D. DATE OF PROCEDURE: 06/06/2016 OPERATION PERFORMED: Laparoscopic appendectomy. ANESTHESIA: General endotracheal. ASA CLASSIFICATION: IIE. PREOPERATIVE DIAGNOSIS: Acute abdomen appendicitis by CT scan. POSTOPERATIVE DIAGNOSIS: Acute nonruptured appendicitis. DESCRIPTION OF PROCEDURE: The patient was taken to the operating room and placed on the operating table in the supine position. Time-out was called for appropriate identification of patient and procedure. Thigh-high TEDs and sequential compression boots were placed. Following satisfactory attainment of general endotracheal anesthesia, the abdomen was prepped with DuraPrep solution. Sterile drapes were applied. The skin just above the umbilicus was infiltrated with 0.5% Marcaine solution. The skin incision was made and deepened through the subcutaneous tissue obtaining hemostasis with the use of electrocautery. The Veress needle was introduced into the peritoneal cavity. Saline drop test was positive. Pneumoperitoneum was established with carbon dioxide, and the release set at 13 cm of water. With a satisfactory pneumoperitoneum, the patient was positioned, head down, and a 5 mm camera and port were placed through that incision. Under camera vision, 12 mm suprapubic port was placed after local infiltration with 0.5% Marcaine solution. The patient was now turned to the left and a 3rd port was placed in the left lower quadrant. The skin was infiltrated with 0.5% Marcaine solution. Skin incision was made and a 5 mm port was introduced through that incision. The mesoappendix was taken down with the Harmonic scalpel. The base of the appendix was acutely inflamed and was elected to ligate and transect the appendix using the Endo-DANYEL stapler with a blue load. Once the appendix was amputated, this was placed in an Endopouch. The right lower quadrant was irrigated with several 100 mL of sterile saline solution. That fluid was aspirated. The Endopouch containing appendix was removed through the 12 mm suprapubic port. Under camera vision, the 5 mm left lower quadrant port was removed and finally, the supraumbilical camera port were removed. The patient tolerated the procedure well. Following emergence from anesthesia and extubation, he was taken to recovery room in stable condition. INTRAOPERATIVE FLUID REPLACEMENT: 1700 mL of crystalloid. INTRAOPERATIVE BLOOD LOSS: 10 mL. JAMIE / PATRICIA /[id number]
[2016-06-06 14:45] VITALS: BP 108/63
--- NOTE | 2016-06-06 14:56 | PCM48HPAN ---
Post Anesthesia Note - EVALUATION WITHIN 48HRS OF ANESTHETIC Vital Signs in Normal Range: Yes Patient Participated in Evaluation: Yes Respiratory Function Stable: Yes Airway Patent: Yes Cardiovascular Function Stable: Yes Hydration Status Stable: Yes Pain Control Satisfactory: Yes Nausea and Vomiting Control Satisfactory: Yes Mental Status Recovered: Yes
--- NOTE | 2016-06-06 16:12 | PCM.DCSUM1 ---
Discharge Summary - Hospital Course HPI Initial Comments: Patient is a 41 y/o gentleman who developed onset of abdominal pain, nausea and vomiting about 7pm last night. He presented to the ER and was found to have a significant leucocytosis and appendicitis per CT scan. He was started on parenteral antibiotics and admitted to my service for definitive treatment. - Discharge Data Discharge Date: 06/06/16 Discharge Disposition: Home, Self-Care 01 Condition: Fair - Discharge Diagnosis/Problem(s) (1) Appendicitis SNOMED Code(s): 56007958 ICD Code: K37 - UNSPECIFIED APPENDICITIS Status: Acute Priority: High Current Visit: Yes Qualifiers: Appendicitis type: acute appendicitis Acute appendicitis type: with localized peritonitis Qualified Code(s): K35.3 - Acute appendicitis with localized peritonitis (2) Anxiety disorder SNOMED Code(s): 688975718 ICD Code: F41.9 - ANXIETY DISORDER, UNSPECIFIED Status: Acute Priority: Medium Current Visit: Yes Onset Date: 08/28/13 - Patient Summary/Data Operative Procedure(s) Performed: Laparoscopic appendectomy - Patient Instructions Diet: Usual Diet as Tolerated Activity: No Lifting Over 25 Pounds, Rest and Relax Today Driving: Do Not Drive (for at least 24 hours) Showering/Bathing: May Shower Wound/Incision Care: Keep Operative Site/Wound Site Clean and Dry Notify Provider of: Fever, Increased Pain, Swelling and Redness, Nausea and/or Vomiting Other/Special Instructions: See Dr. Paula on 06/21. Send Rx. - Discharge Plan Home Medications: Home Meds ClonazePAM [KlonoPIN] 1 mg PO QAM 06/08/13 [History] Gabapentin [Neurontin] 300 mg PO BID 06/08/13 [History] Doxylamine Succinate [Unisom Sleep Aid] 50 mg PO BEDTIME 08/15/14 [History] PARoxetine [Paxil] 10 mg PO DAILY 08/15/14 [History] ClonazePAM [KlonoPIN] 0.25 mg PO BEDTIME 06/06/16 [History] Lisinopril [Prinivil] 10 mg PO DAILY 06/06/16 [History] Patient Handouts: Acetaminophen; Hydrocodone tablets or capsules, Ondansetron oral dissolving tablet, Laparoscopic Appendectomy, Adult, Care After, Easy-to- Read Referrals: Joon Paula MD [Physician] - 06/22/16 9:15 am - Discharge Summary/Plan Comment DC Time >30 min.: No - General Info Date of Service: 06/06/16 Functional Status: Reports: pain controlled, tolerating diet, ambulating, urinating. Denies: new symptoms - Review of Systems General: Denies: Fever, Weakness, Fatigue HEENT: Reports: no symptoms Pulmonary: Denies: shortness of breath, cough Cardiovascular: Denies: Chest Pain Gastrointestinal: Reports: Abdominal pain (incisional pain only). Denies: Decreased appetite (tolerated po diet), Diarrhea, Difficulty swallowing, Nausea , Vomiting Genitourinary: Reports: no symptoms Musculoskeletal: Reports: no symptoms Skin: Reports: no symptoms Neurological: Reports: No Symptoms Psychiatric: Reports: no symptoms - Patient Data Vitals - Most Recent: Last Vital Signs Temp 98.3 F 06/06/16 14:00 Pulse 77 06/06/16 14:00 Resp 16 06/06/16 14:00 BP 108/63 06/06/16 14:00 Pulse Ox 96 06/06/16 14:00 Weight - Most Recent: 177 lb 11.2 oz I&O - Last 24 hours: Intake & Output 06/06/16 06/06/16 06/06/16 03:59 11:59 19:59 Intake Total 3500 Output Total 550 Balance 2950 Med Orders - Current: Current Medications Acetaminophen (Tylenol) 325 mg PO Q4H PRN PRN Reason: Fever Greater Than 101 Hydrocodone Bitart/Acetaminophen ([place] 325-5 Mg) 1 - 2 tab PO Q4H PRN PRN Reason: Pain (moderate 4-6) Clonazepam (Klonopin) 0.25 mg PO BEDTIME NÉSTOR Clonazepam (Klonopin) 1 mg PO QAM [facility] Gabapentin (Neurontin) 300 mg PO BID [facility] Lactated Ringer's (Ringers, Lactated) 1,000 mls @ 125 mls/hr IV ASDIRECTED [facility] Last Admin: 06/06/16 13:54 Dose: 125 mls/hr Lactated Ringer's (Ringers, Lactated) 1,000 mls @ 125 mls/hr IV ASDIRECTED [facility] Cefoxitin Sodium 1 gm/ Premix 50 mls @ 100 mls/hr IV Q8H [facility] Stop: 06/07/16 08:29 Last Admin: 06/06/16 15:20 Dose: 100 mls/hr Lisinopril (Prinivil) 10 mg PO DAILY [facility] Lorazepam (Ativan) 1 mg IVPUSH BID PRN PRN Reason: Anxiety Morphine Sulfate (Morphine) 0 mg IVPUSH Q1H PRN PRN Reason: Pain (severe 7-10) Ondansetron HCl (Zofran) 4 mg IVPUSH Q6H PRN PRN Reason: Nausea/Vomiting Paroxetine HCl (Paxil) 10 mg PO DAILY [facility] Doxylamine Succinate (25 Mg) 2 each PO BEDTIME [facility] Sodium Chloride (Saline Flush) 10 ml FLUSH ASDIRECTED PRN PRN Reason: Keep Vein Open Last Admin: 06/06/16 01:38 Dose: 10 ml Sodium Chloride (Saline Flush) 2.5 ml FLUSH ASDIRECTED PRN PRN Reason: Keep Vein Open Discontinued Medications Bupivacaine HCl (Marcaine 0.5%) Confirm Administered Dose 30 ml .ROUTE .STK-MED ONE Stop: 06/06/16 07:48 Cefazolin Sodium (Ancef) Confirm Administered Dose 1 gm .ROUTE .STK-MED ONE Stop: 06/06/16 07:48 Cefoxitin Sodium (Mefoxin) Confirm Administered Dose 1 gm .ROUTE .STK-MED ONE Stop: 06/06/16 08:22 Fentanyl (Sublimaze) Confirm Administered Dose 250 mcg .ROUTE .STK-MED ONE Stop: 06/06/16 07:35 Fentanyl (Sublimaze) 50 mcg IVPUSH Q5M PRN PRN Reason: Pain (severe 7-10) Stop: 06/07/16 08:44 Glycopyrrolate () Confirm Administered Dose 1 mg .ROUTE .STK-MED ONE Stop: 06/06/16 07:39 Hydromorphone HCl (Dilaudid) 1 mg IVPUSH ONETIME ONE Stop: 06/05/16 22:40 Last Admin: 06/05/16 23:18 Dose: 1 mg Hydromorphone HCl (Dilaudid) 1 mg IVPUSH ONETIME ONE Stop: 06/06/16 00:57 Last Admin: 06/06/16 01:38 Dose: 1 mg Hydromorphone HCl (Dilaudid) Confirm Administered Dose 2 mg .ROUTE .STK-MED ONE Stop: 06/06/16 07:45 Hydromorphone HCl (Dilaudid) 0 mg IVPUSH ONETIME ONE Stop: 06/06/16 08:45 Sodium Chloride (Normal Saline) 1,000 mls @ 999 mls/hr IV STAT ONE Stop: 06/05/16 23:39 Last Admin: 06/05/16 23:10 Dose: 999 mls/hr Cefoxitin Sodium 2 gm/ Premix 50 mls @ 100 mls/hr IV ONETIME ONE Stop: 06/06/16 01:20 Last Admin: 06/06/16 01:42 Dose: 100 mls/hr Cefoxitin Sodium 1 gm/ Premix 50 mls @ 100 mls/hr IV Q8H [facility] Stop: 06/07/16 01:59 Last Admin: 06/06/16 11:44 Dose: Not Given Iopamidol (Isovue-370 (76%)) 100 ml IVPUSH ONETIME STA Stop: 06/05/16 23:57 Last Admin: 06/06/16 00:43 Dose: 100 ml Ketorolac Tromethamine (Toradol) Confirm Administered Dose 30 mg .ROUTE .STK- MED ONE Stop: 06/06/16 07:39 Lidocaine (Xylocaine-Mpf 2%) Confirm Administered Dose 10 ml .ROUTE .STK-MED ONE Stop: 06/06/16 07:34 Lorazepam (Ativan) 1 mg IVPUSH ONETIME ONE Stop: 06/06/16 02:49 Last Admin: 06/06/16 02:58 Dose: Not Given Midazolam HCl (Versed 1 Mg/Ml) Confirm Administered Dose 2 mg .ROUTE .STK-MED ONE Stop: 06/06/16 07:35 Morphine Sulfate (Morphine) 0 mg IVPUSH Q1H PRN PRN Reason: Pain Last Admin: 06/06/16 07:19 Dose: 2 mg Neostigmine Methylsulfate (Neostigmine) Confirm Administered Dose 5 mg .ROUTE .STK-MED ONE Stop: 06/06/16 07:39 Ondansetron HCl (Zofran) 4 mg IVPUSH ONETIME ONE Stop: 06/05/16 22:40 Last Admin: 06/05/16 23:15 Dose: 4 mg Ondansetron HCl (Zofran) 4 mg IVPUSH Q4H PRN PRN Reason: Nausea/Vomiting Last Admin: 06/06/16 05:54 Dose: 4 mg Ondansetron HCl (Zofran) Confirm Administered Dose 4 mg .ROUTE .STK-MED ONE Stop: 06/06/16 07:39 Pantoprazole Sodium (Protonix Iv) 80 mg IVPUSH .BOLUS ONE Stop: 06/05/16 22:40 Last Admin: 06/05/16 23:24 Dose: 80 mg Propofol (Diprivan 20 Ml) Confirm Administered Dose 400 mg .ROUTE .STK-MED ONE Stop: 06/06/16 07:35 Rocuronium [place] (Zemuron) Confirm Administered Dose 100 mg .ROUTE .STK-MED ONE Stop: 06/06/16 07:39 Succinylcholine Chloride (Succinylcholine In Ns Pf) Confirm Administered Dose 200 mg .ROUTE .STK-MED ONE Stop: 06/06/16 07:39 - Exam General: Reports: alert, oriented, cooperative, no acute distress HEENT: Reports: Pupils equal, Pupils reactive, EOMI, Mucous membr. moist/pink. Denies: Scleral icterus Neck: Reports: supple Lungs: Reports: Clear to auscultation, Normal respiratory effort Cardiovascular: Reports: Regular Rate, Regular Rhythm, No Murmurs Abdomen: Reports: bowel sounds present, soft, no tenderness, no distension (Male) Exam: No hernia Rectal (Males) Exam: Deferred Back Exam: Reports: normal inspection Extremities: Reports: no edema, normal pulses Skin: Reports: warm, dry, intact Wound/Incisions: Reports: dressing dry and intact Neurological: Reports: no new focal deficit Psy/Mental Status: Reports: alert, normal affect, normal mood Discharge Operative/Procedures - Procedures Performed Operations: Laparoscopic appendectomy *Q Meaningful Use (DIS) - VTE *Q VTE Criteria *Q: - Stroke *Q Stroke Criteria *Q: - AMI *Q AMI Criteria *Q:
[2016-06-06] MEDS ORDERED: DOXYLAMINE SUCCINATE 25 MG PO SCH (21:00)
[2016-06-06] MEDS ORDERED: ClonazePAM 0.5 MG Tab PO SCH (21:00)
[2016-06-06] MEDS ORDERED: Gabapentin 300 MG Cap PO SCH (21:00)
[2016-06-07] MEDS ORDERED: PARoxetine 20 MG Tab PO SCH (09:00)
[2016-06-07] MEDS ORDERED: Lisinopril 10 MG Tab PO SCH (09:00)
[2016-06-07] MEDS ORDERED: ClonazePAM 1 MG Tab PO SCH (09:00)
== END 2016-06-06 16:05 | disposition home or self-care (01) ==
LOC: MW.ED 22:23 → MW.MS 06-06 00:53
PROVIDERS: ADMIT Surgery; ATTEND Surgery
PROC: 0DTJ4ZZ Resection of Appendix, Percutaneous Endoscopic Approach (ICD-10-PCS; principal; 2016-06-06)
DX: K35.3 Acute appendicitis with localized peritonitis (principal); I10 Essential (primary) hypertension; F41.9 Anxiety disorder, unspecified; F32.9 Major depressive disorder, single episode, unspecified; K21.9 Gastro-esophageal reflux disease without esophagitis; Z79.899 Other long term (current) drug therapy; F17.200 Nicotine dependence, unspecified, uncomplicated
CPT/HCPCS: 36415; 44970; 74177; 80053; 81001; 82150; 83605; 83690; 85025; 88304; 96361; 96374; 96375; 96376; 99285; C9113; G0378; J0694; J1170; J1885; J2250; J2270; J2405; J3010; J7040; J7120; Q9967; 00840; J0690; J2704

== ENCOUNTER 2016-06-08 03:05 | Emergency (ER) | payer OTHER ==
--- NOTE | 2016-06-08 03:22 | EDM.PDOC ---
ED HPI GENERAL MEDICAL PROBLEM - General Chief Complaint: Chest Pain Stated Complaint: CHEST PAIN Time Seen by Provider: 06/08/16 03:08 - History of Present Illness INITIAL COMMENTS - FREE TEXT/NARRATIVE: HISTORY AND PHYSICAL: History of present illness: The patient is a 41-year-old male with a history of anxiety disorder who is in the ED multiple times for anxiety and chest pain related to that presents to the ED tonight complaining of upper abdominal pain/bilateral chest pain that started approximately 10 minutes ago. The patient was admitted on Monday night and had a laparoscopic appendectomy on Monday morning without event. I have reviewed the notes of that operation and admission. He was discharged home and has been doing okay and had a small bowel movement earlier tonight. He has not been having any vomiting but still has some achy abdominal pain. Has not had fevers chills shortness of breath or any other symptomatology until this evening. He thought maybe it was just his anxiety as he frequently gets attacks at nighttime but he wasn't sure so he thought he should get checked out. Currently in the ED he is not complaining of a sharp chest pain but some discomfort across his lower chest wall bilaterally left slightly greater than right and some distention of his abdomen . The patient takes medication for anxiety but he did not take any of that this evening they thought he should get it checked first. In the ED a my evaluation he currently feels better. Review of systems: As per history of present illness and below otherwise all systems reviewed and negative. Past medical history: As per history of present illness and as reviewed below otherwise noncontributory. Surgical history: As per history of present illness and as reviewed below otherwise noncontributory. Social history: No reported history of drug or alcohol abuse. Family history: As per history of present illness and as reviewed below otherwise noncontributory. Physical exam: General: Well-developed well-nourished man who is nontoxic and speaking easily and clearly in the ED. His vital signs been noted by me. HEENT: Atraumatic, normocephalic, negative for conjunctival pallor or scleral icterus, mucous membranes moist, throat clear, neck supple, nontender, trachea midline. Lungs: Clear to auscultation, breath sounds equal bilaterally, chest nontender. No work or breathing or sensory muscle use Heart: S1S2, regular, negative for clicks, rubs, or JVD. Abdomen: Soft, mildly distended with hypoactive bowel sounds and some tympany on percussion in the upper abdomen, incisions had dressings in place and are clean and dry without any erythema. There is some diffuse mid abdominal tenderness on palpation but no rebound or guarding Negative for masses or hepatosplenomegaly. Genitourinary: Deferred. Rectal: Deferred. Extremities: Atraumatic, negative for cords or calf pain. Neurovascular unremarkable. Neuro: Awake, alert, oriented. Cranial nerves II through XII unremarkable. Cerebellum unremarkable. Motor and sensory unremarkable throughout. Exam nonfocal. Diagnostics: EKG chest x-ray abdominal x-ray Therapeutics: [] I discussed with the patient that he may have some retained gas from his procedure and sometimes that can get up underneath his diaphragm when he is laying flat and he can trigger discomfort. We'll go ahead and perform testing as above as he thinks this is more likely due to his anxiety but he does want an EKG to check it out. 0402: He is aware of all testing results and I have offered him further workup including blood tests CTA scan of the chest and continuous monitoring and he would like to defer that at this time. He does feels reassured that this is more likely postoperative discomfort due to the type of procedure he had as well as his anxiety so he wants to go home take his anxiety meds and go to sleep. His brother is here at bedside and states that ever since he read his discharge papers from the hospital he has been somewhat anxious about all the things that he has read about possible complications. I have told him that he is welcome to return for any progression or change in his symptoms for further testing and care. Impression: Episode of chest pain status post laparoscopic appendectomy, history of anxiety Definitive disposition and diagnosis as appropriate pending reevaluation and review of above. Chest Pain Score (Numeric/FACES): 4 - Related Data Allergies Allergy/AdvReac Type Severity Reaction Status Date / Time No Known Allergies Allergy Verified 06/08/16 03:11 Home Meds: Home Meds ClonazePAM [KlonoPIN] 1 mg PO QAM 06/08/13 [History] Gabapentin [Neurontin] 300 mg PO BID 06/08/13 [History] Doxylamine Succinate [Unisom Sleep Aid] 50 mg PO BEDTIME 08/15/14 [History] PARoxetine [Paxil] 10 mg PO DAILY 08/15/14 [History] ClonazePAM [KlonoPIN] 0.25 mg PO BEDTIME 06/06/16 [History] Lisinopril [Prinivil] 10 mg PO DAILY 06/06/16 [History] Past Medical History - Past Health History Medical/Surgical History: Denies Medical/Surgical History HEENT History: Reports: None Cardiovascular History: Reports: Hypertension, Other (see below) Other Cardiovascular History: chest pain and SOB r/t anxiety Respiratory History: Reports: SOB, Other (see below) Other Respiratory History: SOB r/t anxiety Gastrointestinal History: Reports: Chronic diarrhea, GERD, Other (see below) Other Gastrointestinal History: Bleeding from the rectum Genitourinary History: Reports: None Musculoskeletal History: Reports: Fracture Other Musculoskeletal History: dislocation left elbow Neurological History: Reports: Migraines Psychiatric History: Reports: Anxiety, Depression, Panic attack, Psych Hospitalization(s) Endocrine/Metabolic History: Reports: None Hematologic History: Reports: None Immunologic History: Reports: None Oncologic (Cancer) History: Reports: None Dermatologic History: Reports: None - Infectious Disease History Infectious Disease History: Reports: Chicken pox - Past Surgical History HEENT Surgical History: Reports: Tonsillectomy GI Surgical History: Reports: Colonoscopy Musculoskeletal Surgical History: Reports: Arthroscopic knee Social & Family History - Family History Family Medical History: Noncontributory - Tobacco Use Smoking Status *Q: Current Every Day Smoker Years of Tobacco use: 22 Packs/Tins Daily: 1 Used Tobacco, but Quit: No Second Hand Smoke Exposure: Yes - Caffeine Use Caffeine Use: Reports: Tea Caffeine Use Comment: 5 cups/day - Alcohol Use Days Per Week of Alcohol Use: 0 - Recreational Drug Use Recreational Drug Use: No ED ROS GENERAL - Review of Systems Review Of Systems: ROS reveals no pertinent complaints other than HPI. ED EXAM, GENERAL - Physical Exam Exam: See Below (See dictation) Course - Vital Signs Last Recorded V/S: Last Vital Signs Temp 37.0 C 06/08/16 03:07 Pulse 82 06/08/16 03:07 Resp 18 06/08/16 03:07 BP 146/98 H 06/08/16 03:07 Pulse Ox 98 06/08/16 03:07 - Orders/Labs/Meds Orders: Active Orders 24 hr Category Date Time Status EKG Documentation Completion [RC] STAT Care 06/08/16 03:08 Active Abdomen 1V Upright [CR] Stat Exams 06/08/16 03:16 Taken Chest 1V Frontal [CR] Stat Exams 06/08/16 03:16 Taken Departure - Departure Time of Disposition: 04:08 Disposition: Home, Self-Care 01 Condition: good Clinical Impression: Atypical chest pain, Postoperative pain Referrals: PCP,None [Primary Care Provider] - Forms: ED Department Discharge Additional Instructions: The following information is given to patients seen in the emergency department who are being discharged to home. This information is to outline your options for follow-up care. We provide all patients seen in our emergency department with a follow-up referral. The need for follow-up, as well as the timing and circumstances, are variable depending upon the specifics of your emergency department visit. If you don't have a primary care physician on staff, we will provide you with a referral. We always advise you to contact your personal physician following an emergency department visit to inform them of the circumstance of the visit and for follow-up with them and/or the need for any referrals to a consulting specialist. The emergency department will also refer you to a specialist when appropriate. This referral assures that you have the opportunity for followup care with a specialist. All of these measure are taken in an effort to provide you with optimal care, which includes your followup. Under all circumstances we always encourage you to contact your private physician who remains a resource for coordinating your care. When calling for followup care, please make the office aware that this follow-up is from your recent emergency room visit. If for any reason you are refused follow-up, please contact the [facility] emergency department at and ask to speak to the emergency department charge nurse. [facility] Primary care- Internal Medicine and [facility] [place] [address] [place] [id number] [facility] Specialty Care-General Surgery Professional Building [address] [place] [id number] Please keep your followup appointment with Dr. Paula as scheduled and continue all home medications and any additional medications prescribed to her discharge on Monday. Return to ER as needed and as discussed. Follow up with primary care symptoms or progression of today's symptoms. - My Orders Last 24 Hours: My Active Orders 06/08/16 03:08 EKG Documentation Completion [RC] STAT 06/08/16 03:16 Abdomen 1V Upright [CR] Stat Chest 1V Frontal [CR] Stat - Assessment/Plan Last 24 Hours: My Active Orders 06/08/16 03:08 EKG Documentation Completion [RC] STAT 06/08/16 03:16 Abdomen 1V Upright [CR] Stat Chest 1V Frontal [CR] Stat
[2016-06-08 04:29] VITALS: BP 138/100
--- NOTE | 2016-06-08 14:36 | CR ---
EXAM DATE: 06/08/16 PATIENT'S AGE: 41 Patient: LAYO HERNADEZ Facility: [place], [place] Site . Site : 1975 Study: XRay Abdomen/Pelvis [id number]/19/2017 3:44:13 AM Ordering Physician: González Leach Final Report: Indication: Status post appendectomy. Abdominal pain. Technique: Two views of the abdomen. Comparison: None Findings/Impression: : No evidence of high-grade mechanical bowel obstruction. Colonic gas seen. Right lower quadrant air-fluid levels could be colonic. No suspicious calcifications seen. A small right pelvic phlebolith. Unremarkable osseous structures. Dictated by Ronen Oneill MD @ 06/08/2016 3:47:19 AM Dictated by: Ronen Oneill MD @ 06/08/2016 03:47:23 (Electronic Signature) Report Signed by Proxy and Original Signed Document filed in the Medical Record. MTDJames
--- NOTE | 2016-06-08 14:38 | CR ---
EXAM DATE: 06/08/16 PATIENT'S AGE: 41 Patient: LAYO HERNADEZ Facility: [place], [place] Site . Site : 1975 Study: XRay Chest [id number]/19/2017 3:45:02 AM Ordering Physician: González Leach Final Report: Indication: Pain. Status post appendectomy. Technique: Chest 1 view Comparison: 03/11/2015. Findings/Impression: Cardiovascular and mediastinum: Heart size and vasculature are normal in caliber and appearance. Mediastinum is within normal limits. Lungs and pleural space: Lungs are clear. No sign of infiltrate or mass. No sign of pleural effusion. No pneumothorax. Bones and soft tissues: No significant findings. Dictated by Ronen Oneill MD @ 06/08/2016 3:59:04 AM Dictated by: Ronen Oneill MD @ 06/08/2016 03:59:08 (Electronic Signature) Report Signed by Proxy and Original Signed Document filed in the Medical Record. MTDD
== END 2016-06-08 04:15 | disposition home or self-care (01) ==
LOC: MW.ED 03:05
DX: G89.18 Other acute postprocedural pain (principal); R07.89 Other chest pain; I10 Essential (primary) hypertension; K21.9 Gastro-esophageal reflux disease without esophagitis; F41.0 Panic disorder [episodic paroxysmal anxiety]; F32.9 Major depressive disorder, single episode, unspecified; Z98.890 Other specified postprocedural states; F17.210 Nicotine dependence, cigarettes, uncomplicated; Z79.899 Other long term (current) drug therapy
CPT/HCPCS: 71010; 71010-26; 74000; 74000-26; 93005; 99283; 99285-25

== ENCOUNTER 2018-07-31 01:19 | Emergency (ER) | payer SELFPAY ==
[2018-07-31] MEDS ORDERED: Sodium Chloride 0.9% 2.5 ML Syringe FLUSH PRN (01:41)
[2018-07-31] MEDS ORDERED: Aspirin 325 MG Tab PO ONE (01:41)
[2018-07-31] MEDS ORDERED: Sodium Chloride 0.9% 10 ML Syringe FLUSH PRN (01:41)
--- NOTE | 2018-07-31 01:43 | EDM.PDOC ---
ED HPI GENERAL MEDICAL PROBLEM - General Chief Complaint: Chest Pain Stated Complaint: CHEST PAIN Time Seen by Provider: 07/31/18 01:25 - History of Present Illness INITIAL COMMENTS - FREE TEXT/NARRATIVE: HISTORY AND PHYSICAL: History of present illness: The patient is a 43-year-old male with a history of hypertension and anxiety, for which he takes multiple medications, and presents with tingling and sensory changes in bilateral upper extremities bilateral lower extremities upper chest and face that has been ongoing for the last 3 days. The patient says that he does not feel like his anxiety is causing this and he has noticed that his blood pressure has been "all over the place". He has no headache chest pain neck pain or back pain no abdominal pain vomiting or diarrhea and no urinary complaints. He has no palpitations. He says that he has no numbness in his extremities and can do his activities and he is eating and drinking normally as well as speaking normally. He says that all of these symptoms, the bilateral upper and lower extremities as well as the chest have been going on for 3 days and then the face started over the last 1 day all of which seem to get worse this evening which is why he came in. The patient does take Neurontin Klonopin and alprazolam and Paxil for his generalized anxiety disorder and takes lisinopril for his blood pressure. He says he was prescribed metoprolol but he doesn't take it because he is afraid because his heart rate is on the lower side and he is concerned so he stopped taking it. He says he was seen in our clinic last Monday 5 days ago, although there is record of this visit in the computer and he was told that he could increase his lisinopril dose because of his elevated blood pressure but he has not done that again because he is concerned and scared to do that. He says sometimes his blood pressure is low and sometimes is high and he is scared to change his meds. He says that all these areas of numbness and tingling are not completely numb they does have an odd sensation that he says he can't describe very well and there is no pain associated with that or swelling. He says that his blood pressure at home was 169/110 and he was concerned so he came here Review of systems: As per history of present illness and below otherwise all systems reviewed and negative. Past medical history: As per history of present illness and as reviewed below otherwise noncontributory. Surgical history: As per history of present illness and as reviewed below otherwise noncontributory. Social history: No reported history of drug or alcohol abuse. Family history: As per history of present illness and as reviewed below otherwise noncontributory. Physical exam: General: Well-developed well-nourished somewhat anxious man who is nontoxic and speaking clearly in the ED. Blood pressure is appreciated in the ED as are all the vital signs on triage. HEENT: Atraumatic, normocephalic, pupils reactive, negative for conjunctival pallor or scleral icterus, mucous membranes moist, throat clear, neck supple, nontender, trachea midline. There is no cervical adenopathy or nuchal rigidity Lungs: Clear to auscultation, breath sounds equal bilaterally, chest nontender. Heart: S1S2, regular, negative for clicks, rubs, or JVD. No overt murmurs are appreciated Abdomen: Soft, nondistended, nontender. Negative for masses or hepatosplenomegaly. NABS Pelvis: Stable nontender. Genitourinary: Deferred. Rectal: Deferred. Extremities: Atraumatic, negative for cords or calf pain. Neurovascular unremarkable. No pedal edema or leg asymmetry and full range of motion Neuro: Awake, alert, oriented. Cranial nerves II through XII unremarkable. Cerebellum unremarkable. Motor unremarkable throughout. Exam nonfocal. On my sensory exam to simple touch pressure and temperature he says he can feel everything when I touch extremities chest and face. There is no evidence of any speech changes swallowed changes or facial droop and no drift. There is normal tone and the patient ambulated into the ED without any distress Diagnostics: CBC CMP troponin TSH CT scan of the head chest x-ray magnesium level Therapeutics: IV O2 monitor aspirin Ativan Patient is feeling much better and says he does not have any tingling except for a small patch on the anterior aspect of his right thigh. His blood pressure on my reevaluation was 142/96. I discussed the patient's testing results at length with him and significant other at bedside and have recommended that he follow the regimen that was recommended by the clinic provider last Monday and introduce an extra 5 mg of his lisinopril at night. I've also discussed with him doing a symptom journal as well as doing blood pressure checks once a day at the same time everyday. He feels more comfortable and is comfortable with discharge home Impression: Paresthesias with elevated blood pressure improved stable; history of anxiety Definitive disposition and diagnosis as appropriate pending reevaluation and review of above. Chest Pain Score (Numeric/FACES): 4 - Related Data Allergies Allergy/AdvReac Type Severity Reaction Status Date / Time No Known Allergies Allergy Verified 07/31/18 01:26 Home Meds: Home Meds Gabapentin [Neurontin] 300 mg PO BID 06/08/13 [History] Doxylamine Succinate [Unisom Sleep Aid] 50 mg PO BEDTIME 08/15/14 [History] PARoxetine [Paxil] 10 mg PO DAILY 08/15/14 [History] Lisinopril [Prinivil] 10 mg PO DAILY 06/06/16 [History] Omeprazole 20 mg PO DAILY 10/26/17 [History] ALPRAZolam [Alprazolam ER] 0.5 mg PO ASDIRECTED 07/31/18 [History] Amoxicillin/Clavulanate K [Augmentin 500-125 MG] 1 tab PO ASDIRECTED 07/31/18 [ History] Benzonatate [Tessalon Perle] 1 cap PO ASDIRECTED 07/31/18 [History] ClonazePAM [KlonoPIN] 0.25 mg PO BEDTIME 07/31/18 [History] clonazePAM [Klonopin] 1 mg PO DAILY 07/31/18 [History] Past Medical History - Past Health History Medical/Surgical History: Denies Medical/Surgical History HEENT History: Reports: None Cardiovascular History: Reports: Hypertension Other Cardiovascular History: chest pain and SOB r/t anxiety Respiratory History: Reports: SOB, Other (See Below) Other Respiratory History: SOB r/t anxiety Gastrointestinal History: Reports: Chronic Diarrhea, GERD, Other (See Below) Other Gastrointestinal History: Bleeding from the rectum Genitourinary History: Reports: None Musculoskeletal History: Reports: Fracture Other Musculoskeletal History: dislocation left elbow Neurological History: Reports: Migraines Psychiatric History: Reports: Anxiety, Depression, Panic Attack, Psych Hospitalization(s) Endocrine/Metabolic History: Reports: None Hematologic History: Reports: None Immunologic History: Reports: None Oncologic (Cancer) History: Reports: None Dermatologic History: Reports: None - Infectious Disease History Infectious Disease History: Reports: None - Past Surgical History HEENT Surgical History: Reports: Tonsillectomy Musculoskeletal Surgical History: Reports: Arthroscopic Knee Social & Family History - Family History Family Medical History: Noncontributory - Caffeine Use Caffeine Use: Reports: Tea Caffeine Use Comment: 5 cups/day ED ROS GENERAL - Review of Systems Review Of Systems: ROS reveals no pertinent complaints other than HPI. ED EXAM, GENERAL - Physical Exam Exam: See Below (See dictation) Course - Vital Signs Last Recorded V/S: Last Vital Signs Temp 36.1 C 07/31/18 01:23 Pulse 97 07/31/18 01:23 Resp BP 181/118 H 07/31/18 01:23 Pulse Ox 96 07/31/18 01:40 - Orders/Labs/Meds Orders: Active Orders 24 hr Category Date Time Status Cardiac Monitoring [RC] . DIRECTED Care 07/31/18 01:40 Active EKG Documentation Completion [RC] STAT Care 07/31/18 01:40 Active Oxygen Therapy, ED [RC] ASDIRECTED Care 07/31/18 01:40 Active Pulse Oximetry [RC] ASDIRECTED Care 07/31/18 01:40 Active UA RFX ZAK AND CULT IF INDIC [URIN] Stat Lab 07/31/18 01:41 Ordered Sodium Chloride 0.9% [Saline Flush] Med 07/31/18 01:41 Active 10 ml FLUSH ASDIRECTED PRN Sodium Chloride 0.9% [Saline Flush] Med 07/31/18 01:41 Active 2.5 ml FLUSH ASDIRECTED PRN Saline Lock Insert [OM.PC] Stat Oth 07/31/18 01:40 Ordered Medication Orders Sodium Chloride (Saline Flush) 10 ml FLUSH ASDIRECTED PRN PRN Reason: Keep Vein Open Last Admin: 07/31/18 02:00 Dose: 10 ml Sodium Chloride (Saline Flush) 2.5 ml FLUSH ASDIRECTED PRN PRN Reason: Keep Vein Open Last Admin: 07/31/18 02:00 Dose: 2.5 ml Labs: Laboratory Tests 07/31/18 07/31/18 07/31/18 Range/Units 01:23 01:23 01:23 WBC 11.88 H (4.0-11.0) K/uL RBC 5.14 (4.50-5.90) M/uL Hgb 14.8 (13.0-17.0) g/dL Hct 43.0 (38.0-50.0) % MCV 83.7 (80.0-98.0) fL MCH 28.8 (27.0-32.0) pg MCHC 34.4 (31.0-37.0) g/dL RDW Std Deviation 42.2 (28.0-62.0) fl RDW Coeff of [place] 14 (11.0-15.0) % Plt Count 229 (150-400) K/uL MPV 10.20 (7.40-12.00) fL Neut % (Auto) 52.4 (48.0-80.0) % Lymph % (Auto) 37.9 (16.0-40.0) % [place]ander % (Auto) 6.5 (0.0-15.0) % Eos % (Auto) 3.0 (0.0-7.0) % Baso % (Auto) 0.2 (0.0-1.5) % Neut # (Auto) 6.2 H (1.4-5.7) K/uL Lymph # (Auto) 4.5 H (0.6-2.4) K/uL Lander # (Auto) 0.8 (0.0-0.8) K/uL Eos # (Auto) 0.4 (0.0-0.7) K/uL Baso # (Auto) 0.0 (0.0-0.1) K/uL Sodium 140 (136-148) mmol/L Potassium 3.5 (3.5-5.1) mmol/L Chloride 103 (98-107) mmol/L Carbon Dioxide 26.0 (21.0-32.0) mmol/L BUN 8 (7.0-18.0) mg/dL Creatinine 0.9 (0.8-1.3) mg/dL Est Cr Clr Drug Dosing 93.01 mL/min Estimated GFR (MDRD) > 60.0 ml/min Glucose 113 H (74-106) mg/dL Calcium 8.7 (8.5-10.1) mg/dL Magnesium 2.0 (1.8-2.4) mg/dL Total Bilirubin 0.3 (0.2-1.0) mg/dL AST 22 (15-37) IU/L ALT 33 (14-63) IU/L Alkaline Phosphatase 119 H (46-116) U/L Troponin I < 0.050 (0.000-0.056) ng/mL Total Protein 7.8 (6.4-8.2) g/dL Albumin 4.1 (3.4-5.0) g/dL Globulin 3.7 (2.6-4.0) g/dL Albumin/Globulin Ratio 1.1 (0.9-1.6) TSH 3rd Generation 2.00 (0.36-3.74) uIU/mL Meds: Medications Generic Name Dose Route Start Last Admin Trade Name Freq PRN Reason Stop Dose Admin Sodium Chloride 10 ml 07/31/18 01:41 07/31/18 02:00 Saline Flush FLUSH 10 ml ASDIRECTED PRN Administration Keep Vein Open Sodium Chloride 2.5 ml 07/31/18 01:41 07/31/18 02:00 Saline Flush FLUSH 2.5 ml ASDIRECTED PRN Administration Keep Vein Open Discontinued Medications Generic Name Dose Route Start Last Admin Trade Name Freq PRN Reason Stop Dose Admin Aspirin 325 mg 07/31/18 01:41 07/31/18 02:00 Aspirin PO 07/31/18 01:42 325 mg ONETIME ONE Administration Lorazepam 1 mg 07/31/18 02:00 07/31/18 02:03 Ativan IVPUSH 07/31/18 02:01 1 mg ONETIME ONE Administration Departure - Departure Time of Disposition: 03:06 Disposition: Home, Self-Care 01 Condition: Good Clinical Impression: History of anxiety, Paresthesia Hypertension Qualifiers: Hypertension type: unspecified Qualified Code(s): I10 - Essential (primary) hypertension - Discharge Information Referrals: PCP,None [Primary Care Provider] - Forms: ED Department Discharge Additional Instructions: The following information is given to patients seen in the emergency department who are being discharged to home. This information is to outline your options for follow-up care. We provide all patients seen in our emergency department with a follow-up referral. The need for follow-up, as well as the timing and circumstances, are variable depending upon the specifics of your emergency department visit. If you don't have a primary care physician on staff, we will provide you with a referral. We always advise you to contact your personal physician following an emergency department visit to inform them of the circumstance of the visit and for follow-up with them and/or the need for any referrals to a consulting specialist. The emergency department will also refer you to a specialist when appropriate. This referral assures that you have the opportunity for followup care with a specialist. All of these measure are taken in an effort to provide you with optimal care, which includes your followup. Under all circumstances we always encourage you to contact your private physician who remains a resource for coordinating your care. When calling for followup care, please make the office aware that this follow-up is from your recent emergency room visit. If for any reason you are refused follow-up, please contact the [facility] emergency department at and ask to speak to the emergency department charge nurse. [facility] Primary care- Internal Medicine and Family [address] [address] Please start your symptom journal and do blood pressure checks once a day at the same time every day and record with your symptom journal. Please call and schedule a follow-up with your provider in the clinic and try to connect with one of our family practice people in the residency clinic for continuity. Please introduce the new night dose of lisinopril per the direction of the clinic provider that you got last week and watch salt intake. Continue with all home meds and return to ER as needed and as discussed - My Orders Last 24 Hours: My Active Orders 07/31/18 01:40 Cardiac Monitoring [RC] . DIRECTED EKG Documentation Completion [RC] STAT Oxygen Therapy, ED [RC] ASDIRECTED Pulse Oximetry [RC] ASDIRECTED Saline Lock Insert [OM.PC] Stat 07/31/18 01:41 UA RFX ZAK AND CULT IF INDIC [URIN] Stat Sodium Chloride 0.9% [Saline Flush] 10 ml FLUSH ASDIRECTED PRN Sodium Chloride 0.9% [Saline Flush] 2.5 ml FLUSH ASDIRECTED PRN - Assessment/Plan Last 24 Hours: My Active Orders 07/31/18 01:40 Cardiac Monitoring [RC] . DIRECTED EKG Documentation Completion [RC] STAT Oxygen Therapy, ED [RC] ASDIRECTED Pulse Oximetry [RC] ASDIRECTED Saline Lock Insert [OM.PC] Stat 07/31/18 01:41 UA RFX ZAK AND CULT IF INDIC [URIN] Stat Sodium Chloride 0.9% [Saline Flush] 10 ml FLUSH ASDIRECTED PRN Sodium Chloride 0.9% [Saline Flush] 2.5 ml FLUSH ASDIRECTED PRN
[2018-07-31] MEDS ORDERED: LORazepam 2 MG/ML SDV IVPUSH ONE (02:00)
[2018-07-31 02:32] LABS: CHLORIDE,CL 103 mmol/L (98-107); SODIUM,NA 140 mmol/L (136-148)
--- NOTE | 2018-07-31 02:50 | CT ---
INDICATION: Headache. TECHNIQUE: Noncontrast axial images. Sagittal and coronal reconstructions. COMPARISON: 09/21/2011. FINDINGS: There is no abnormal intracranial mass effect or midline shift. No intracranial hemorrhage. No new abnormal areas of attenuation are seen with the brain. Subtle small areas of low attenuation changes in the periventricular and subcortical white matter in the right frontal lobe are unchanged. CSF spaces are age-appropriate. Osseous structures are intact. There is mucosal thickening seen in the ethmoid sinuses and left sphenoid sinus. No appreciable air-fluid level. Findings are likely inflammatory in nature. Mastoids are clear. IMPRESSION: 1. No CT evidence of an acute intracranial abnormality. 2. Paranasal sinus disease as noted. Dictated by Yonathan Vernon MD @ 07/31/2018 2:49:03 AM Please note that all CT scans at this facility use dose modulation, iterative reconstruction, and/or weight-based dosing when appropriate to reduce radiation dose to as low as reasonably achievable. Dictated by: Yonathan Vernon MD @ 07/31/2018 02:49:09 (Electronically Signed)
--- NOTE | 2018-07-31 02:50 | CR ---
Indication: Chest pain Technique: Chest 1 view Comparison: 06/08/2016. Findings/Impression: Cardiovascular and mediastinum: Upper limits of normal cardiac size, at least partially related to the portable technique. Lungs and pleural space: Lungs are clear. No sign of infiltrate or mass. No sign of pleural effusion. No pneumothorax. Bones and soft tissues: No significant findings. Dictated by Ronen Oneill MD @ 07/31/2018 2:48:49 AM Dictated by: Ronen Oneill MD @ 07/31/2018 02:48:52 (Electronically Signed)
[2018-07-31 03:39] VITALS: BP 142/102
== END 2018-07-31 03:20 | disposition home or self-care (01) ==
LOC: MW.ED 01:19
DX: F41.9 Anxiety disorder, unspecified (principal); R20.2 Paresthesia of skin; I10 Essential (primary) hypertension; F32.9 Major depressive disorder, single episode, unspecified; Z79.899 Other long term (current) drug therapy
CPT/HCPCS: 36415; 70450; 71045; 80053; 83735; 84443; 84484; 85025; 93005; 96374; 99284; A9270; J2060

== ENCOUNTER 2018-11-27 15:43 | Emergency (ER) | payer OTHER ==
[2018-11-27] MEDS ORDERED: Tetracaine HCl/PF 0.5% 4 ML Bottle EYEBOTH ONE (16:04)
--- NOTE | 2018-11-27 16:15 | EDM.PDOC ---
ED HPI GENERAL MEDICAL PROBLEM - General Chief Complaint: Eye Problems Stated Complaint: OBJECT IN EYE Time Seen by Provider: 11/27/18 15:57 Source of Information: Reports: Patient History Limitations: Reports: No Limitations - History of Present Illness INITIAL COMMENTS - FREE TEXT/NARRATIVE: HISTORY AND PHYSICAL: History of present illness: Patient is a 43-year-old male presenting to the emergency room for complaints of "metal" in his eye. Patient was grinding metal at his house this afternoon and states a piece of metal went into his right eye. He did inform me that he was wearing safety glasses along with a rate that covers the majority of the lower half of his face. He denies contact use. Review of systems: As per history of present illness and below otherwise all systems reviewed and negative. Past medical history: As per history of present illness and as reviewed below otherwise noncontributory. Surgical history: As per history of present illness and as reviewed below otherwise noncontributory. Social history: See social history for further information Family history: As per history of present illness and as reviewed below otherwise noncontributory. Physical exam: General: Well-developed and well-nourished 43-year-old male. Alert and oriented. Nontoxic appearing and in no acute distress. HEENT: Atraumatic, normocephalic, pupils equal and reactive bilaterally, negative for conjunctival pallor or scleral icterus, mucous membranes moist, TMs normal bilaterally, throat clear, neck supple, nontender, trachea midline. No drooling or trismus noted. No meningeal signs. No hot potato voice noted. Lungs: Clear to auscultation, breath sounds equal bilaterally, chest nontender. Heart: S1S2, regular rate and rhythm without overt murmur Abdomen: Soft, nondistended, nontender. Negative for masses or hepatosplenomegaly. Negative for costovertebral tenderness. Pelvis: Stable nontender. Genitourinary: Deferred. Rectal: Deferred. Skin: Intact, warm, dry. No lesions or rashes noted. Extremities: Atraumatic, moves all extremities per self without difficulty or deficits, negative for cords or calf pain. Neurovascular unremarkable. Neuro: Awake, alert, oriented. Cranial nerves II through XII unremarkable. Cerebellum unremarkable. Motor and sensory unremarkable throughout. Exam nonfocal. Notes: Visual acuity was reviewed by me. Fluorescein eye exam was completed. There is a small corneal abrasion noted to the 3 o'clock position on the right eye. The eye, upper lid and lower lid have no evidence of foreign body. We'll place on erythromycin ointment. We discussed the need to follow up with ophthalmology if symptoms continue Supportive care measures were reviewed and discussed. Voices understanding and is agreeable to plan of care. Denies any further questions or concerns at this time. Diagnostics: None Therapeutics: Erythromycin ointment Prescription: Erythromycin ointment Impression: Sensation of foreign body, right eye Corneal Abrasion Plan: 1. Use the erythromycin ointment 4 times daily over the next 5 days. 2. Follow-up with ophthalmology as we discussed. Return to the ED as needed and as discussed. Definitive disposition and diagnosis as appropriate pending reevaluation and review of above. Right Eye Pain Score (Numeric/FACES): 6 - Related Data Allergies Allergy/AdvReac Type Severity Reaction Status Date / Time No Known Allergies Allergy Verified 11/27/18 15:57 Home Meds: Home Meds Gabapentin [Neurontin] 300 mg PO BID 06/08/13 [History] Doxylamine Succinate [Unisom Sleep Aid] 50 mg PO BEDTIME 08/15/14 [History] PARoxetine [Paxil] 10 mg PO DAILY 08/15/14 [History] Lisinopril [Prinivil] 10 mg PO DAILY 06/06/16 [History] Omeprazole 20 mg PO DAILY 10/26/17 [History] ALPRAZolam [Alprazolam ER] 0.5 mg PO ASDIRECTED 07/31/18 [History] ClonazePAM [KlonoPIN] 0.25 mg PO BEDTIME 07/31/18 [History] clonazePAM [Klonopin] 1 mg PO DAILY 07/31/18 [History] Past Medical History - Past Health History Medical/Surgical History: Denies Medical/Surgical History HEENT History: Reports: None Cardiovascular History: Reports: Hypertension Other Cardiovascular History: chest pain and SOB r/t anxiety Respiratory History: Reports: SOB, Other (See Below) Other Respiratory History: SOB r/t anxiety Gastrointestinal History: Reports: Chronic Diarrhea, GERD, Other (See Below) Other Gastrointestinal History: Bleeding from the rectum Genitourinary History: Reports: None Musculoskeletal History: Reports: Fracture Other Musculoskeletal History: dislocation left elbow Neurological History: Reports: Migraines Psychiatric History: Reports: Anxiety, Depression, Panic Attack, Psych Hospitalization(s) Other Psychiatric History: "hypersensitivity to body" Endocrine/Metabolic History: Reports: None Hematologic History: Reports: None Immunologic History: Reports: None Oncologic (Cancer) History: Reports: None Dermatologic History: Reports: None - Infectious Disease History Infectious Disease History: Reports: None - Past Surgical History Head Surgeries/Procedures: Reports: None HEENT Surgical History: Reports: Tonsillectomy Musculoskeletal Surgical History: Reports: Arthroscopic Knee Social & Family History - Family History Family Medical History: Noncontributory - Tobacco Use Smoking Status *Q: Current Every Day Smoker Years of Tobacco use: 25 Packs/Tins Daily: 1 - Caffeine Use Caffeine Use: Reports: Tea Caffeine Use Comment: 5 cups/day - Recreational Drug Use Recreational Drug Use: No ED ROS GENERAL - Review of Systems Review Of Systems: ROS reveals no pertinent complaints other than HPI. ED EXAM GENERAL W FULL EYE - Physical Exam Exam: See Below (See dictation) Course - Vital Signs Last Recorded V/S: Last Vital Signs Temp 97.8 F 11/27/18 15:55 Pulse 78 11/27/18 15:55 Resp 18 11/27/18 15:55 BP 121/85 11/27/18 15:55 Pulse Ox 96 11/27/18 15:55 - Orders/Labs/Meds Meds: Medications Discontinued Medications Generic Name Dose Route Start Last Admin Trade Name Masoud PRN Reason Stop Dose Admin Tetracaine HCl 1 ml 11/27/18 16:04 Tetracaine 0.5% Steri-Unit [place] EYEBOTH 11/27/18 16:05 ASDIRECTED ONE Departure - Departure Time of Disposition: 16:28 Disposition: Home, Self-Care 01 Clinical Impression: Sensation of foreign body in eye Corneal abrasion Qualifiers: Encounter type: initial encounter Laterality: right Qualified Code(s): S05.01XA - Injury of conjunctiva and corneal abrasion without foreign body, right eye, initial encounter - Discharge Information Instructions: Corneal Abrasion, [id number] Referrals: PCP,Unknown [Primary Care Provider] - Forms: ED Department Discharge Additional Instructions: The following information is given to patients seen in the emergency department who are being discharged to home. This information is to outline your options for follow-up care. We provide all patients seen in our emergency department with a follow-up referral. The need for follow-up, as well as the timing and circumstances, are variable depending upon the specifics of your emergency department visit. If you don't have a primary care physician on staff, we will provide you with a referral. We always advise you to contact your personal physician following an emergency department visit to inform them of the circumstance of the visit and for follow-up with them and/or the need for any referrals to a consulting specialist. The emergency department will also refer you to a specialist when appropriate. This referral assures that you have the opportunity for follow-up care with a specialist. All of these measure are taken in an effort to provide you with optimal care, which includes your follow-up. Under all circumstances we always encourage you to contact your private physician who remains a resource for coordinating your care. When calling for follow-up care, please make the office aware that this follow-up is from your recent emergency room visit. If for any reason you are refused follow-up, please contact the [facility] Emergency Department at and asked to speak to the emergency department charge nurse. [facility] Primary Care [address] [place] [id number] [address] 1. Use the erythromycin ointment 4 times daily over the next 5 days. 2. Follow-up with ophthalmology as we discussed. Return to the ED as needed and as discussed.
[2018-11-27] MEDS ORDERED: Erythromycin Base 0.5% Ophth Oint 1 GM Tube EYERT ONE (16:30)
[2018-11-27 17:11] VITALS: BP 114/79; PULSE 75
== END 2018-11-27 17:11 | disposition home or self-care (01) ==
LOC: MW.ED 15:43
DX: S05.01XA Injury of conjunctiva and corneal abrasion without foreign body, right eye, initial encounter (principal); H57.89 Other specified disorders of eye and adnexa; I10 Essential (primary) hypertension; F32.9 Major depressive disorder, single episode, unspecified; K21.9 Gastro-esophageal reflux disease without esophagitis; F41.9 Anxiety disorder, unspecified; F17.210 Nicotine dependence, cigarettes, uncomplicated; Z79.899 Other long term (current) drug therapy; X58.XXXA Exposure to other specified factors, initial encounter; Y93.89 Activity, other specified; Y92.009 Unspecified place in unspecified non-institutional (private) residence as the place of occurrence of the external cause
CPT/HCPCS: 99283; A9270

== ENCOUNTER 2019-01-20 15:04 | Emergency (ER) | payer OTHER ==
[2019-01-20] MEDS ORDERED: Sodium Chloride 0.9% 2.5 ML Syringe FLUSH PRN (15:13)
[2019-01-20] MEDS ORDERED: Sodium Chloride 0.9% 10 ML Syringe FLUSH PRN (15:13)
[2019-01-20] MEDS ORDERED: Aspirin 81 MG Tab.Chew PO ONE (15:13)
[2019-01-20] MEDS ORDERED: Nitroglycerin 0.4 MG Tab.SL SL PRN (15:16)
--- NOTE | 2019-01-20 15:16 | EDM.PDOC ---
ED HPI GENERAL MEDICAL PROBLEM - General Chief Complaint: Chest Pain Stated Complaint: CHEST PAIN Time Seen by Provider: 01/20/19 15:12 Source of Information: Reports: Patient History Limitations: Reports: No Limitations - History of Present Illness INITIAL COMMENTS - FREE TEXT/NARRATIVE: HISTORY AND PHYSICAL: History of present illness: Patient is a 43-year-old male who presents to the emergency room with complaints of left anterior chest pain that radiates into his left arm. Pain started approximately 30 minutes prior to arrival. States nothing makes the pain better or worse. Patient does have an extensive history of PTSD and anxiety. He states he has had similar episodes like this "too many times to count". He does believe today's symptoms are anxiety related but wanted to come for evaluation to "make sure". He stated he wanted EKG before he took any of his when necessary anxiety medications. Patient denies any fever, chills, headache, change in vision, syncope or near syncope. Denies any back pain, shortness of breath or cough. Denies any abdominal pain, nausea, vomiting, diarrhea, constipation or dysuria. Has not noted any blood in urine or stool. Patient has been eating and drinking appropriately. Review of systems: As per history of present illness and below otherwise all systems reviewed and negative. Past medical history: As per history of present illness and as reviewed below otherwise noncontributory. Surgical history: As per history of present illness and as reviewed below otherwise noncontributory. Social history: See social history for further information Family history: As per history of present illness and as reviewed below otherwise noncontributory. Physical exam: General: Well-developed and well-nourished 43-year-old male. Alert and oriented. Nontoxic appearing and in no acute distress. HEENT: Atraumatic, normocephalic, pupils equal and reactive bilaterally, negative for conjunctival pallor or scleral icterus, mucous membranes moist, throat clear, neck supple, nontender, trachea midline. No drooling or trismus noted. No meningeal signs. No hot potato voice noted. Lungs: Clear to auscultation, breath sounds equal bilaterally, chest nontender. Heart: S1S2, regular rate and rhythm without overt murmur Abdomen: Soft, nondistended, nontender. Negative for masses or hepatosplenomegaly. Negative for costovertebral tenderness. Pelvis: Stable nontender. Skin: Intact, warm, dry. No lesions or rashes noted. Extremities: Atraumatic, moves all extremities per self without difficulty or deficits, negative for cords or calf pain. Neurovascular unremarkable. Neuro: Awake, alert, oriented. Cranial nerves II through XII unremarkable. Cerebellum unremarkable. Motor and sensory unremarkable throughout. Exam nonfocal. Notes: Inform the patient that his EKG showed no significant findings at this time. He states he is relieved and would like something for his anxiety. He is agreeable for remaining lab work Lab work is unremarkable. Vital signs are stable. Patient feels improved. Patient reiterates that this pain he has, he is experienced numerous times and has been told that that is his anxiety. States this pain is not any different or worse than previous. He does follow with a primary care provider. Supportive care measures were reviewed and discussed. Voices understanding and is agreeable to plan of care. Denies any further questions or concerns at this time. Diagnostics: CBC, CMP, troponin, EKG, one view chest Therapeutics: IV fluid, Ativan Prescription: None Impression: Anxiety about health Nonspecific chest pain Plan: 1. Please use Tylenol and/or Ibuprofen as needed for pain and fever management. 2. Get plenty of Rest. Encourage fluids to prevent dehydration. 3. Please follow up with your primary care provider. Return to the ED as needed as discussed. Definitive disposition and diagnosis as appropriate pending reevaluation and review of above. chest Pain Score (Numeric/FACES): 4 - Related Data Allergies Allergy/AdvReac Type Severity Reaction Status Date / Time No Known Allergies Allergy Verified 11/27/18 15:57 Home Meds: Home Meds Gabapentin [Neurontin] 300 mg PO BID 06/08/13 [History] Doxylamine Succinate [Unisom Sleep Aid] 50 mg PO BEDTIME 08/15/14 [History] PARoxetine [Paxil] 10 mg PO DAILY 08/15/14 [History] Lisinopril [Prinivil] 10 mg PO DAILY 06/06/16 [History] Omeprazole 20 mg PO DAILY 10/26/17 [History] ALPRAZolam [Alprazolam ER] 0.5 mg PO ASDIRECTED 07/31/18 [History] ClonazePAM [KlonoPIN] 0.25 mg PO BEDTIME 07/31/18 [History] clonazePAM [Klonopin] 1 mg PO DAILY 07/31/18 [History] Erythromycin Base [Erythromycin 0.5% Ophth Oint] 1 applic OP QID 5 Days #1 tube 11/27/18 [Rx] Past Medical History - Past Health History Medical/Surgical History: Denies Medical/Surgical History HEENT History: Reports: None Cardiovascular History: Reports: Hypertension Other Cardiovascular History: chest pain and SOB r/t anxiety Respiratory History: Reports: SOB, Other (See Below) Other Respiratory History: SOB r/t anxiety Gastrointestinal History: Reports: Chronic Diarrhea, GERD, Other (See Below) Other Gastrointestinal History: Bleeding from the rectum Genitourinary History: Reports: None Musculoskeletal History: Reports: Fracture Other Musculoskeletal History: dislocation left elbow Neurological History: Reports: Migraines Psychiatric History: Reports: Anxiety, Depression, Panic Attack, Psych Hospitalization(s) Other Psychiatric History: "hypersensitivity to body" Endocrine/Metabolic History: Reports: None Hematologic History: Reports: None Immunologic History: Reports: None Oncologic (Cancer) History: Reports: None Dermatologic History: Reports: None - Infectious Disease History Infectious Disease History: Reports: None - Past Surgical History Head Surgeries/Procedures: Reports: None HEENT Surgical History: Reports: Tonsillectomy Musculoskeletal Surgical History: Reports: Arthroscopic Knee Social & Family History - Family History Family Medical History: Noncontributory - Caffeine Use Caffeine Use: Reports: Tea Caffeine Use Comment: 5 cups/day ED ROS GENERAL - Review of Systems Review Of Systems: Comprehensive ROS is negative, except as noted in HPI. ED EXAM, GENERAL - Physical Exam Exam: See Below (See dictation) Course - Vital Signs Last Recorded V/S: Last Vital Signs Temp 96.6 F 01/20/19 15:12 Pulse 92 01/20/19 15:12 Resp 14 01/20/19 15:12 BP 150/106 H 01/20/19 15:12 Pulse Ox 96 01/20/19 15:12 - Orders/Labs/Meds Orders: Active Orders 24 hr Category Date Time Status EKG Documentation Completion [RC] STAT Care 01/20/19 15:13 Active Sodium Chloride 0.9% [Saline Flush] Med 01/20/19 15:13 Active 10 ml FLUSH ASDIRECTED PRN Sodium Chloride 0.9% [Saline Flush] Med 01/20/19 15:13 Active 2.5 ml FLUSH ASDIRECTED PRN Saline Lock Insert [OM.PC] Stat Oth 01/20/19 15:13 Ordered Medication Orders Sodium Chloride (Saline Flush) 10 ml FLUSH ASDIRECTED PRN PRN Reason: Keep Vein Open Last Admin: 01/20/19 15:33 Dose: 10 ml Sodium Chloride (Saline Flush) 2.5 ml FLUSH ASDIRECTED PRN PRN Reason: Keep Vein Open Last Admin: 01/20/19 15:33 Dose: 2.5 ml Labs: Laboratory Tests 01/20/19 01/20/19 Range/Units 15:12 15:12 WBC 9.71 (4.0-11.0) K/uL RBC 5.31 (4.50-5.90) M/uL Hgb 15.5 (13.0-17.0) g/dL Hct 44.8 (38.0-50.0) % MCV 84.4 (80.0-98.0) fL MCH 29.2 (27.0-32.0) pg MCHC 34.6 (31.0-37.0) g/dL RDW Std Deviation 43.9 (28.0-62.0) fl RDW Coeff of [place] 14 (11.0-15.0) % Plt Count 220 (150-400) K/uL MPV 10.40 (7.40-12.00) fL Neut % (Auto) 43.0 L (48.0-80.0) % Lymph % (Auto) 45.8 H (16.0-40.0) % Pettis % (Auto) 8.1 (0.0-15.0) % Eos % (Auto) 2.6 (0.0-7.0) % Baso % (Auto) 0.5 (0.0-1.5) % Neut # (Auto) 4.2 (1.4-5.7) K/uL Lymph # (Auto) 4.5 H (0.6-2.4) K/uL Pettis # (Auto) 0.8 (0.0-0.8) K/uL Eos # (Auto) 0.3 (0.0-0.7) K/uL Baso # (Auto) 0.1 (0.0-0.1) K/uL Nucleated RBC % 0.0 /100WBC Nucleated RBCs # 0 K/uL Sodium 140 (136-148) mmol/L Potassium 3.4 L (3.5-5.1) mmol/L Chloride 104 (98-107) mmol/L Carbon Dioxide 24.4 (21.0-32.0) mmol/L BUN 9 (7.0-18.0) mg/dL Creatinine 1.0 (0.8-1.3) mg/dL Est Cr Clr Drug Dosing 83.71 mL/min Estimated GFR (MDRD) > 60.0 ml/min Glucose 111 H (74-106) mg/dL Calcium 8.5 (8.5-10.1) mg/dL Total Bilirubin 0.3 (0.2-1.0) mg/dL AST 16 (15-37) IU/L ALT 36 (14-63) IU/L Alkaline Phosphatase 103 (46-116) U/L Troponin I < 0.050 (0.000-0.056) ng/mL Total Protein 7.9 (6.4-8.2) g/dL Albumin 4.4 (3.4-5.0) g/dL Globulin 3.5 (2.6-4.0) g/dL Albumin/Globulin Ratio 1.3 (0.9-1.6) Meds: Medications Generic Name Dose Route Start Last Admin Trade Name Frenam PRN Reason Stop Dose Admin Sodium Chloride 10 ml 01/20/19 15:13 01/20/19 15:33 Saline Flush FLUSH 10 ml ASDIRECTED PRN Administration Keep Vein Open Sodium Chloride 2.5 ml 01/20/19 15:13 01/20/19 15:33 Saline Flush FLUSH 2.5 ml ASDIRECTED PRN Administration Keep Vein Open Discontinued Medications Generic Name Dose Route Start Last Admin Trade Name Freq PRN Reason Stop Dose Admin Aspirin 324 mg 01/20/19 15:13 01/20/19 15:24 Aspirin PO 01/20/19 15:14 Not Given ONETIME ONE Lorazepam 1 mg 01/20/19 15:21 01/20/19 15:32 Ativan IVPUSH 01/20/19 15:22 1 mg ONETIME ONE Administration Nitroglycerin 0.4 mg 01/20/19 15:16 Nitrostat SL Q5M PRN Chest Pain Departure - Departure Time of Disposition: 15:53 Disposition: Home, Self-Care Clinical Impression: Anxiety about health, Nonspecific chest pain Instructions: Nonspecific Chest Pain, [id number] Referrals: Terrance Bailon, [employer] [Primary Care Provider] - Forms: ED Department Discharge Additional Instructions: The following information is given to patients seen in the emergency department who are being discharged to home. This information is to outline your options for follow-up care. We provide all patients seen in our emergency department with a follow-up referral. The need for follow-up, as well as the timing and circumstances, are variable depending upon the specifics of your emergency department visit. If you don't have a primary care physician on staff, we will provide you with a referral. We always advise you to contact your personal physician following an emergency department visit to inform them of the circumstance of the visit and for follow-up with them and/or the need for any referrals to a consulting specialist. The emergency department will also refer you to a specialist when appropriate. This referral assures that you have the opportunity for follow-up care with a specialist. All of these measure are taken in an effort to provide you with optimal care, which includes your follow-up. Under all circumstances we always encourage you to contact your private physician who remains a resource for coordinating your care. When calling for follow-up care, please make the office aware that this follow-up is from your recent emergency room visit. If for any reason you are refused follow-up, please contact the [facility] Emergency Department at and asked to speak to the emergency department charge nurse. [facility] Primary Care [address] [place] [id number] [address] [address] 1. Please use Tylenol and/or Ibuprofen as needed for pain and fever management. 2. Get plenty of Rest. Encourage fluids to prevent dehydration. 3. Please follow up with your primary care provider. Return to the ED as needed as discussed. - My Orders Last 24 Hours: My Active Orders 01/20/19 15:13 EKG Documentation Completion [RC] STAT Sodium Chloride 0.9% [Saline Flush] 10 ml FLUSH ASDIRECTED PRN Sodium Chloride 0.9% [Saline Flush] 2.5 ml FLUSH ASDIRECTED PRN Saline Lock Insert [OM.PC] Stat - Assessment/Plan Last 24 Hours: My Active Orders 01/20/19 15:13 EKG Documentation Completion [RC] STAT Sodium Chloride 0.9% [Saline Flush] 10 ml FLUSH ASDIRECTED PRN Sodium Chloride 0.9% [Saline Flush] 2.5 ml FLUSH ASDIRECTED PRN Saline Lock Insert [OM.PC] Stat
[2019-01-20] MEDS ORDERED: LORazepam 2 MG/ML SDV IVPUSH ONE (15:21)
--- NOTE | 2019-01-20 15:37 | CR ---
HISTORY: Chest pain. COMPARISON: 07/31/2018. FINDINGS: Single portable AP view of the chest. The lungs are clear. Costophrenic angles sharp. Cardiac silhouette and pulmonary vascularity are within normal limits. Bony thorax intact. Dictated by Rach Gonzalez MD @ Jan 20 2019 3:35PM Signed by Dr. Rach Gonzalez @ Jan 20 2019 3:36PM
[2019-01-20 15:48] LABS: BLOOD UREA NITROGEN,BUN 9 mg/dL (7.0-18.0); CARBON DIOXIDE,CO2 24.4 mmol/L (21.0-32.0); CHLORIDE,CL 104 mmol/L (98-107); GLUCOSE RANDOM 111 mg/dL (74-106); POTASSIUM,K 3.4 mmol/L (3.5-5.1); SODIUM,NA 140 mmol/L (136-148)
[2019-01-20 16:41] VITALS: BP 146/97; PULSE 83
== END 2019-01-20 16:29 | disposition home or self-care (01) ==
LOC: MW.ED 15:04
DX: F41.9 Anxiety disorder, unspecified (principal); R07.89 Other chest pain; F32.9 Major depressive disorder, single episode, unspecified; I10 Essential (primary) hypertension; Z79.899 Other long term (current) drug therapy
CPT/HCPCS: 36415; 71045; 80053; 84484; 85025; 93005; 96374; 99285; J2060

== ENCOUNTER 2019-03-18 21:38 | Emergency (ER) | payer OTHER ==
[2019-03-18] MEDS ORDERED: Ketorolac 60 MG/2 ML SDV IM ONE (23:38)
[2019-03-18] MEDS ORDERED: traMADol 50 MG Tab PO ONE (23:38)
[2019-03-18] MEDS ORDERED: Diazepam 2 MG Tab PO ONE (23:39)
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
[2019-03-19 00:46] VITALS: BP 148/106; PULSE 67
== END 2019-03-19 00:44 | disposition home or self-care (01) ==
LOC: MW.ED 21:38
DX: R51 Headache (principal); I10 Essential (primary) hypertension; F41.0 Panic disorder [episodic paroxysmal anxiety]; F32.9 Major depressive disorder, single episode, unspecified; K21.9 Gastro-esophageal reflux disease without esophagitis; F17.210 Nicotine dependence, cigarettes, uncomplicated; Z79.899 Other long term (current) drug therapy
CPT/HCPCS: 96372; 99284; A9270; J1885; 99283

== ENCOUNTER 2019-05-18 22:47 | Emergency (ER) | payer OTHER ==
--- NOTE | 2019-05-19 00:49 | CR ---
INDICATION: Chest pain TECHNIQUE: Chest 2 views COMPARISON: Chest x-ray 01/20/2018 FINDINGS: Cardiovascular and mediastinum: Heart size and vasculature are normal in caliber and appearance. Lungs and pleural spaces: Lungs are clear. No sign of infiltrate or mass. No sign of pleural effusion. No pneumothorax. Bones and soft tissues: No significant findings. IMPRESSION: No acute findings and no significant changes from the prior exam. Dictated by Conner Maxwell MD @ May 19 2019 12:48AM Signed by Dr. Conner Maxwell @ May 19 2019 12:48AM
--- NOTE | 2019-05-19 00:57 | EDM.PDOC ---
ED [facility] GENERAL MEDICAL PROBLEM - General Chief Complaint: Chest Pain Stated Complaint: CHEST PAIN Time Seen by Provider: 05/19/19 00:57 Source of Information: Reports: Patient History Limitations: Reports: No Limitations - History of Present Illness INITIAL COMMENTS - FREE TEXT/NARRATIVE: Patient is a 44-year-old male with past medical history of hypertension, hyperlipidemia and PTSD presenting with chief complaint of chest pain. Patient states the chest pain has been ongoing for a approximately 2 days. Patient states the pain is substernal does not radiate. Patient states the pain does not get better or worse with anything. Patient denies any associated nausea, vomiting, diaphoresis, shortness of breath. Patient denies any fevers or difficulty breathing. Patient reports prior history of chest pain associated with anxiety however seems to be different. Patient denies any exertional chest pain. Pmhx: Per HPI Pshx: None Family Hx: noncontributory Smoking history? Yes Etoh use? none Drug use? none In addition to that documented in the HPI above, the additional ROS was obtained : Constitutional: Denies fevers or chills Eyes: Denies vision changes ENMT: Denies sore throat CV: Denies chest pain Resp: Denies SOB GI: Denies vomiting or diarrhea : Denies painful urination MSK: Denies recent trauma Skin: Denies new rashes Neuro: Denies new numbness or tingling or weakness Endocrine: Denies unexpected weight loss Heme: Denies bleeding disorders I have reviewed the triage vital signs Const: Well nourished, well developed, appears stated age Eyes: PERRL, no conjunctival injection HENT: NCAT, Neck supple without meningismus CV: RRR, Warm, well-perfused extremities RESP: CTAB, Unlabored respiratory effort GI: soft, non-tender, non-distended, no masses MSK: No gross deformities appreciated Skin: Warm, dry. No rashes Neuro: Alert, architectural associate II-XII grossly intact. Sensation and motor function of extremities grossly intact. Psych: Appropriate mood and affect Assessment and plan: Patient 41-year-old male presenting with chest pain. Differential diagnosis considered including acute coronary syndrome but seems less likely given his normal EKG and normal initial troponin. Patient has a heart score of 2. Additionally, pulmonary was was considered but patient is PERC negative. Other causes could be related to a pneumonia or musculoskeletal issue. Has x-ray is negative. Patient's labs are reviewed without any significant acute abnormality. Patient feels better and will be discharged home. All questions were addressed and answered. Patient urged to seek follow-up with primary care physician. Patient agrees with plan. chest Pain Score (Numeric/FACES): 5 - Related Data Allergies Allergy/AdvReac Type Severity Reaction Status Date / Time No Known Allergies Allergy Verified 05/18/19 23:29 Home Meds: Home Meds Gabapentin [Neurontin] 300 mg PO TID 06/08/13 [History] Doxylamine Succinate [Unisom Sleep Aid] 50 mg PO BEDTIME 08/15/14 [History] PARoxetine [Paxil] 10 mg PO DAILY 08/15/14 [History] Lisinopril [Prinivil] 40 mg PO DAILY 06/06/16 [History] Omeprazole 20 mg PO DAILY 10/26/17 [History] ALPRAZolam [Alprazolam ER] 0.5 mg PO ASDIRECTED PRN 07/31/18 [History] ClonazePAM [KlonoPIN] 0.25 mg PO BEDTIME 07/31/18 [History] clonazePAM [Klonopin] 1 mg PO QAM 07/31/18 [History] Past Medical History - Past Health History Medical/Surgical History: Denies Medical/Surgical History HEENT History: Reports: None Cardiovascular History: Reports: High Cholesterol, Hypertension Other Cardiovascular History: chest pain and SOB r/t anxiety Respiratory History: Reports: SOB, Other (See Below) Other Respiratory History: SOB r/t anxiety Gastrointestinal History: Reports: Chronic Diarrhea, GERD, Other (See Below) Other Gastrointestinal History: Bleeding from the rectum Genitourinary History: Reports: None Musculoskeletal History: Reports: Fracture Other Musculoskeletal History: dislocation left elbow Neurological History: Reports: Migraines Psychiatric History: Reports: Anxiety, Depression, Panic Attack, Psych Hospitalization(s), PTSD, Suicide Attempt Other Psychiatric History: "hypersensitivity to body" Endocrine/Metabolic History: Reports: None Hematologic History: Reports: None Immunologic History: Reports: None Oncologic (Cancer) History: Reports: None Dermatologic History: Reports: None - Infectious Disease History Infectious Disease History: Reports: Measles - Past Surgical History Head Surgeries/Procedures: Reports: None HEENT Surgical History: Reports: Tonsillectomy Cardiovascular Surgical History: Reports: None Respiratory Surgical History: Reports: None GI Surgical History: Reports: None Neurological Surgical History: Reports: None Musculoskeletal Surgical History: Reports: Arthroscopic Knee Social & Family History - Family History Family Medical History: Noncontributory - Tobacco Use Smoking Status *Q: Current Every Day Smoker Years of Tobacco use: 26 Packs/Tins Daily: 1 - Caffeine Use Caffeine Use: Reports: Tea Caffeine Use Comment: 5 cups/day - Recreational Drug Use Recreational Drug Use: No ED ROS GENERAL - Review of Systems Review Of Systems: See Below ED EXAM, GENERAL - Physical Exam Exam: See Below Course - Vital Signs Last Recorded V/S: Last Vital Signs Temp 36.1 C 05/18/19 23:18 Pulse 84 05/19/19 02:15 Resp 18 05/19/19 02:15 BP 119/80 05/19/19 02:15 Pulse Ox 94 L 05/19/19 02:15 - Orders/Labs/Meds Labs: Laboratory Tests 05/19/19 05/19/19 Range/Units 00:55 00:55 WBC 12.41 H (4.0-11.0) K/uL RBC 5.22 (4.50-5.90) M/uL Hgb 14.9 (13.0-17.0) g/dL Hct 44.4 (38.0-50.0) % MCV 85.1 (80.0-98.0) fL MCH 28.5 (27.0-32.0) pg MCHC 33.6 (31.0-37.0) g/dL RDW Std Deviation 42.5 (28.0-62.0) fl RDW Coeff of [place] 14 (11.0-15.0) % Plt Count 213 (150-400) K/uL MPV 10.50 (7.40-12.00) fL Neut % (Auto) 58.0 (48.0-80.0) % Lymph % (Auto) 31.5 (16.0-40.0) % [place] % (Auto) 8.8 (0.0-15.0) % Eos % (Auto) 1.5 (0.0-7.0) % Baso % (Auto) 0.2 (0.0-1.5) % Neut # (Auto) 7.2 H (1.4-5.7) K/uL Lymph # (Auto) 3.9 H (0.6-2.4) K/uL [place] # (Auto) 1.1 H (0.0-0.8) K/uL Eos # (Auto) 0.2 (0.0-0.7) K/uL Baso # (Auto) 0.0 (0.0-0.1) K/uL Sodium 141 (136-148) mmol/L Potassium 3.6 (3.5-5.1) mmol/L Chloride 102 (98-107) mmol/L Carbon Dioxide 24.8 (21.0-32.0) mmol/L BUN 11 (7.0-18.0) mg/dL Creatinine 0.9 (0.8-1.3) mg/dL Est Cr Clr Drug Dosing 92.06 mL/min Estimated GFR (MDRD) > 60.0 ml/min Glucose 101 (74-106) mg/dL Calcium 8.8 (8.5-10.1) mg/dL Troponin I < 0.050 (0.000-0.056) ng/mL Meds: Medications Discontinued Medications Generic Name Dose Route Start Last Admin Trade Name Freq PRN Reason Stop Dose Admin Ketorolac Tromethamine 15 mg 05/19/19 01:43 05/19/19 01:59 Toradol IVPUSH 05/19/19 01:44 Not Given ONETIME ONE Ketorolac Tromethamine 30 mg 05/19/19 01:52 05/19/19 01:57 Toradol IM 05/19/19 01:53 30 mg ONETIME ONE Administration Departure - Departure Time of Disposition: 01:43 Disposition: Home, Self-Care 01 Clinical Impression: Atypical chest pain Instructions: Nonspecific Chest Pain, Adult, [id number] Referrals: PCP,None [Primary Care Provider] - Forms: ED Department Discharge Additional Instructions: The following information is given to patients seen in the emergency department who are being discharged to home. This information is to outline your options for follow-up care. We provide all patients seen in our emergency department with a follow-up referral. The need for follow-up, as well as the timing and circumstances, are variable depending upon the specifics of your emergency department visit. If you don't have a primary care physician on staff, we will provide you with a referral. We always advise you to contact your personal physician following an emergency department visit to inform them of the circumstance of the visit and for follow-up with them and/or the need for any referrals to a consulting specialist. The emergency department will also refer you to a specialist when appropriate. This referral assures that you have the opportunity for follow-up care with a specialist. All of these measure are taken in an effort to provide you with optimal care, which includes your follow-up. Under all circumstances we always encourage you to contact your private physician who remains a resource for coordinating your care. When calling for follow-up care, please make the office aware that this follow-up is from your recent emergency room visit. If for any reason you are refused follow-up, please contact the [facility] Emergency Department at and asked to speak to the emergency department charge nurse. Continue home meds as prescribed. Follow up with primary medical provider. Sepsis Event Note - Evaluation Sepsis Screening Result: No Definite Risk - Focused Exam Vital Signs: Vital Signs Temp Pulse Resp BP Pulse Ox 05/19/19 02:15 84 18 119/80 94 L 05/18/19 23:18 36.1 C 95 17 112/80 96 Date Exam was Performed: 05/19/19 Time Exam was Performed: 02:42
[2019-05-19 01:40] LABS: BLOOD UREA NITROGEN,BUN 11 mg/dL (7.0-18.0); CARBON DIOXIDE,CO2 24.8 mmol/L (21.0-32.0); CHLORIDE,CL 102 mmol/L (98-107); GLUCOSE RANDOM 101 mg/dL (74-106); POTASSIUM,K 3.6 mmol/L (3.5-5.1); SODIUM,NA 141 mmol/L (136-148)
[2019-05-19] MEDS ORDERED: Ketorolac 30 MG/ML SDV IVPUSH ONE (01:43)
[2019-05-19] MEDS ORDERED: Ketorolac 30 MG/ML SDV IM ONE (01:52)
[2019-05-19 02:17] VITALS: BP 119/80; PULSE 84
== END 2019-05-19 02:19 | disposition home or self-care (01) ==
LOC: MW.ED 22:47
DX: R07.89 Other chest pain (principal); I10 Essential (primary) hypertension; K21.9 Gastro-esophageal reflux disease without esophagitis; F41.0 Panic disorder [episodic paroxysmal anxiety]; F32.9 Major depressive disorder, single episode, unspecified; F17.210 Nicotine dependence, cigarettes, uncomplicated; Z79.899 Other long term (current) drug therapy
CPT/HCPCS: 36415; 71046; 80048; 84484; 85025; 93005; 96372; 99285; J1885; 99283

== ENCOUNTER 2019-10-06 19:29 | Emergency (ER) | payer OTHER ==
[2019-10-06] MEDS ORDERED: diphenhydrAMINE 50 MG/ML SDV IM ONE (20:03)
[2019-10-06] MEDS ORDERED: Ketorolac 15 MG/ML SDV IM ONE (20:03)
[2019-10-06] MEDS ORDERED: Metoclopramide 10 MG/2 ML SDV IM ONE (20:03)
--- NOTE | 2019-10-06 20:06 | EDM.PDOC ---
ED [facility]PI GENERAL MEDICAL PROBLEM - General Chief Complaint: Headache Stated Complaint: HEAD AND NECK PAIN Time Seen by Provider: 10/06/19 19:52 Source of Information: Reports: Patient History Limitations: Reports: No Limitations - History of Present Illness INITIAL COMMENTS - FREE TEXT/NARRATIVE: History of present illness: [Patient is 44-year-old male with a history of migraine headaches who presents to the ED with a headache that is been now going on for about a day and a half. He states it feels similar to previous headaches. He denies any recent trauma injuries or falls. States he has been taking his medication at home, going to physical therapy for his neck, and doing all the things he regularly does to manage his chronic neck pain and intermittent migraines. Last time he was here in the ED for a migraine was about 8 months ago. He states usually the migraine cocktail medications are effective for him. Denies rapid sudden onset, maximal in intensity type of headache. Denies neck stiffness, fever, chills, rash, URI symptoms. Denies blurry vision or focal neuro deficits.] Review of systems: As per history of present illness and below otherwise all systems reviewed and negative. Past medical history: As per history of present illness and as reviewed below otherwise noncontributory. Surgical history: As per history of present illness and as reviewed below otherwise noncontributory. Social history: No reported history of drug or alcohol abuse. Family history: As per history of present illness and as reviewed below otherwise noncontributor y. Physical exam: General: Awake, alert, no acute distress, A&O X3. HEENT: Atraumatic, normocephalic, pupils reactive, negative for conjunctival pallor or scleral icterus, mucous membranes moist, throat clear, neck supple, nontender, trachea midline. Lungs: Clear to auscultation, breath sounds equal bilaterally, chest nontender. Heart: RRR, normal S1S2, no JVD. Abdomen: Soft, nondistended, nontender. Negative for masses or hepatosplenomegaly. Negative for costovertebral tenderness. Pelvis: Stable nontender. Genitourinary: Deferred. Rectal: Deferred. Extremities: Atraumatic, no edema, Neurovascular unremarkable. Neuro: Motor and sensory grossly intact throughout. Exam nonfocal. Diagnostics: [] Therapeutics: [] Impression: [] Plan: [] Definitive disposition and diagnosis as appropriate pending reevaluation and review of above. Headache Pain Score (Numeric/FACES): 8 - Related Data Allergies Allergy/AdvReac Type Severity Reaction Status Date / Time No Known Allergies Allergy Verified 10/06/19 19:41 Home Meds: Home Meds Gabapentin [Neurontin] 300 mg PO BID 06/08/13 [History] Doxylamine Succinate [Unisom Sleep Aid] 50 mg PO BEDTIME 08/15/14 [History] PARoxetine [Paxil] 10 mg PO DAILY 08/15/14 [History] Lisinopril [Prinivil] 40 mg PO DAILY 06/06/16 [History] Omeprazole 20 mg PO DAILY 10/26/17 [History] ALPRAZolam [Alprazolam ER] 0.5 mg PO ASDIRECTED PRN 07/31/18 [History] ClonazePAM [KlonoPIN] 0.25 mg PO BEDTIME 07/31/18 [History] clonazePAM [Klonopin] 1 mg PO QAM 07/31/18 [History] amLODIPine Besylate [Amlodipine Besylate] 5 mg PO DAILY 10/06/19 [History] Past Medical History - Past Health History Medical/Surgical History: Denies Medical/Surgical History HEENT History: Reports: None Cardiovascular History: Reports: High Cholesterol, Hypertension Other Cardiovascular History: chest pain and SOB r/t anxiety Respiratory History: Reports: SOB, Other (See Below) Other Respiratory History: SOB r/t anxiety Gastrointestinal History: Reports: Chronic Diarrhea, GERD, Other (See Below) Other Gastrointestinal History: Bleeding from the rectum Genitourinary History: Reports: None Musculoskeletal History: Reports: Back Pain, Chronic, Fracture, Neck Pain, Chronic Other Musculoskeletal History: dislocation left elbow, Neurological History: Reports: Migraines Psychiatric History: Reports: Anxiety, Depression, Panic Attack, Psych Hospitalization(s), PTSD, Suicide Attempt Other Psychiatric History: "hypersensitivity to body" Endocrine/Metabolic History: Reports: None Hematologic History: Reports: None Immunologic History: Reports: None Oncologic (Cancer) History: Reports: None Dermatologic History: Reports: None - Infectious Disease History Infectious Disease History: Reports: Measles - Past Surgical History Head Surgeries/Procedures: Reports: None HEENT Surgical History: Reports: Tonsillectomy Cardiovascular Surgical History: Reports: None Respiratory Surgical History: Reports: None GI Surgical History: Reports: None Neurological Surgical History: Reports: None Musculoskeletal Surgical History: Reports: Arthroscopic Knee Social & Family History - Family History Family Medical History: Noncontributory - Tobacco Use Smoking Status *Q: Current Every Day Smoker Years of Tobacco use: 20 Packs/Tins Daily: 1 - Caffeine Use Caffeine Use: Reports: Soda, Tea Caffeine Use Comment: 5 cups/day - Recreational Drug Use Recreational Drug Use: No ED ROS GENERAL - Review of Systems Review Of Systems: Comprehensive ROS is negative, except as noted in HPI. - Physical Exam Exam: See Below (See H&P) Course - Vital Signs Text/Narrative:: Patient reports that the IM migraine cocktail he received has been very helpful, he feels much better, states his pain went from an 8 to a 3. He is agreeable with plan to be discharged home and follow-up in the outpatient setting. He will continue to physical therapy and take medications he was previously prescribed. No new meds prescribed today for home use. Return precautions provided. Otherwise he is well-appearing, stable, no meningismus signs, no fever, no rash, no believe there is indication for CT scan of the brain given the resolution of symptoms and the consistency with previous migraines. Last Recorded V/S: Last Vital Signs Temp 36.4 C 10/06/19 19:35 Pulse 85 10/06/19 19:35 Resp 14 10/06/19 19:35 BP 141/98 H 10/06/19 19:35 Pulse Ox 96 10/06/19 19:35 - Orders/Labs/Meds Meds: Medications Discontinued Medications Generic Name Dose Route Start Last Admin Trade Name Masoud PRN Reason Stop Dose Admin Diphenhydramine HCl 50 mg 10/06/19 20:03 10/06/19 20:24 Benadryl IM 10/06/19 20:04 50 mg ONETIME ONE Administration Ketorolac Tromethamine 15 mg 10/06/19 20:03 10/06/19 20:28 Toradol IM 10/06/19 20:04 15 mg ONETIME ONE Administration Metoclopramide HCl 10 mg 10/06/19 20:03 10/06/19 20:26 Reglan IM 10/06/19 20:04 10 mg ONETIME ONE Administration Departure - Departure Time of Disposition: 21:10 Disposition: Home, Self-Care 01 Condition: Good Clinical Impression: Migraine - Discharge Information Instructions: Migraine Headache, [id number] Referrals: PCP,None [Primary Care Provider] - Forms: ED Department Discharge Additional Instructions: Follow-up with primary care doctor. Return to the ED with any new or worsening symptoms. The following information is given to patients seen in the emergency department who are being discharged to home. This information is to outline your options for follow-up care. We provide all patients seen in our emergency department with a follow-up referral. The need for follow-up, as well as the timing and circumstances, are variable depending upon the specifics of your emergency department visit. If you don't have a primary care physician on staff, we will provide you with a referral. We always advise you to contact your personal physician following an emergency department visit to inform them of the circumstance of the visit and for follow-up with them and/or the need for any referrals to a consulting specialist. The emergency department will also refer you to a specialist when appropriate. This referral assures that you have the opportunity for follow-up care with a specialist. All of these measure are taken in an effort to provide you with optimal care, which includes your follow-up. Under all circumstances we always encourage you to contact your private physician who remains a resource for coordinating your care. When calling for follow-up care, please make the office aware that this follow-up is from your recent emergency room visit. If for any reason you are refused follow-up, please contact the [facility] Emergency Department at and asked to speak to the emergency department charge nurse. Sepsis Event Note (ED) - Evaluation Sepsis Screening Result: No Definite Risk - Focused Exam Vital Signs: Vital Signs Temp Pulse Resp BP Pulse Ox 10/06/19 19:35 36.4 C 85 14 141/98 H 96
[2019-10-06 23:07] VITALS: BP 127/75; PULSE 81
== END 2019-10-06 21:18 | disposition home or self-care (01) ==
LOC: MW.ED 19:29
DX: G43.909 Migraine, unspecified, not intractable, without status migrainosus (principal); F17.210 Nicotine dependence, cigarettes, uncomplicated; F41.9 Anxiety disorder, unspecified; F32.9 Major depressive disorder, single episode, unspecified; I10 Essential (primary) hypertension; K21.9 Gastro-esophageal reflux disease without esophagitis; Z79.899 Other long term (current) drug therapy
CPT/HCPCS: 96372; 99283; J1200; J1885; J2765

== ENCOUNTER 2019-10-13 11:08 | Emergency (ER) | payer OTHER ==
[2019-10-13 11:28] VITALS: BP 127/87; PULSE 78
[2019-10-13] MEDS ORDERED: Acetaminophen/HYDROcodone 325-5 MG Tab PO ONE (11:44)
[2019-10-13] MEDS ORDERED: Dexamethasone 4 MG Tab PO ONE (11:44)
--- NOTE | 2019-10-13 11:45 | EDM.PDOC ---
ED HPI GENERAL MEDICAL PROBLEM - General Chief Complaint: Neck Problem Stated Complaint: NECK PAIN Time Seen by Provider: 10/13/19 11:40 Source of Information: Reports: Patient History Limitations: Reports: No Limitations - History of Present Illness INITIAL COMMENTS - FREE TEXT/NARRATIVE: HISTORY AND PHYSICAL: History of present illness: Patient is a 44-year-old male who presents to the emergency room with complaints of neck pain that radiates down his left arm. This is acute on chronic pain and he has been doctoring through the [place]. He states his initial injury was due to a chiropractic adjustment approximately 1 year ago although has had intermittent neck problems for the past 10 years. Over the past year he has been seen by his primary care provider, through the emergency room, receiving acupuncture and dry needling, and doing frequent physical therapy. Last evening he states his neck pain became worse, was not relieved with Excedrin Migraine. This morning he took a Flexeril and states he was able to sleep for a few more hours but woke up with returned pain. Patient denies any fever, chills, headache, change in vision, syncope or near syncope. Denies any weakness or decreased function. Denies any chest pain, back pain, shortness of breath or cough. Denies any GI or symptoms. Patient has been eating and drinking appropriately. Review of systems: As per history of present illness and below otherwise all systems reviewed and negative. Past medical history: As per history of present illness and as reviewed below otherwise noncontributory. Surgical history: As per history of present illness and as reviewed below otherwise noncontributory. Social history: See social history for further information Family history: As per history of present illness and as reviewed below otherwise noncontributory. Physical exam: General: Well developed and well nourished. Alert and orientated x 3. Nontoxic in appearance and in no acute distress. Vital signs are stable and have been reviewed by me. Nursing notes were reviewed. HEENT: Atraumatic, normocephalic, pupils equal and reactive bilaterally, negative for conjunctival pallor or scleral icterus, mucous membranes moist, TMs normal bilaterally, throat clear, neck supple, nontender, trachea midline. No drooling or trismus noted. No meningeal signs. No hot potato voice noted. Lungs: Clear to auscultation, breath sounds equal bilaterally, chest nontender. Normal work of breathing, no accessory muscles used. Heart: S1S2, regular rate and rhythm without overt murmur Abdomen: Soft, nondistended, nontender. Negative for masses or hepatosplenomegaly. Negative for costovertebral tenderness. C-spine/Back: No pinpoint vertebral tenderness upon palpation. No crepitus, step-offs or obvious deformities. Paraspinous muscular tenderness of the left cervical spine going into the trapezius. patient is ambulatory into the emergency room without difficulty or deficit. Able to rock back on heels and walk on toes. Denies any urinary or fecal incontinence. Denies any numbness, tingling or saddle paresthesia. No concerns of serious infection, fracture or cord compression, or cauda equina syndrome. Deep tendon reflexes brisk bilaterally. Skin: Intact, warm, dry. No lesions or rashes noted. Hematologic: No petechiae or purpra. Mucosa appropriate color and normal nail bed color and refill. Extremities: Atraumatic, moves all extremities per self without difficulty or deficits, negative for cords or calf pain. Neurovascular unremarkable. Neuro: Awake, alert, oriented. Cranial nerves II through XII unremarkable. Cerebellum unremarkable. Motor and sensory unremarkable throughout. Exam nonfocal. Notes: Patient does mention that he would like an MRI of his cervical spine, he is aware that he does not meet criteria for an emergent MRI for a weekend. He did recently have imaging done in June 2019. This was within normal limits. He denies any new injury, trauma or falls. Encouraged him to [facility] to [facility] as an [facility]. He declines wanting any imaging done, would rather have the MRI. We discussed signs and symptoms that would prompt them to return to the Emergency Department. Medication, follow up and supportive care measures were reviewed and discussed. Voices understanding and is agreeable to plan of care. Denies any further questions or concerns at this time. Diagnostics: Declines Therapeutics: [place], [employer] [place] Prescription: Diclofenac Impression: Cervical radiculopathy Plan: 1. Today your physical exam is concerning for cervical radiculopathy. This is a nerve impingement that is located in the neck and can radiate into the arm. Treatment of this is usually physical therapy, epidural steroid injection, stimulators and 2. 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 A prescription for diclofenac, and anti-inflammatory has been prescribed. Do not take any additional NSAIDs such as ibuprofen, Aleve or naproxen. You can continue to take your muscle relaxer with this medication. 3. We always encourage you to follow up with your primary care provider or recommended specialist in the next few days for re-evaluation and further care/management. If your symptoms should worsen, new symptoms develop or any of the signs and symptoms we discussed should arise please return to the emergency room or call 911 (if needed). Definitive disposition and diagnosis as appropriate pending reevaluation and review of above. L neck Pain Score (Numeric/FACES): 8 - Related Data Allergies Allergy/AdvReac Type Severity Reaction Status Date / Time No Known Allergies Allergy Verified 10/13/19 11:28 Home Meds: Home Meds Gabapentin [Neurontin] 300 mg PO BID 06/08/13 [History] Doxylamine Succinate [Unisom Sleep Aid] 50 mg PO BEDTIME 08/15/14 [History] PARoxetine [Paxil] 10 mg PO DAILY 08/15/14 [History] Lisinopril [Prinivil] 40 mg PO DAILY 06/06/16 [History] Omeprazole 20 mg PO DAILY 10/26/17 [History] ALPRAZolam [Alprazolam ER] 0.5 mg PO ASDIRECTED PRN 07/31/18 [History] ClonazePAM [KlonoPIN] 0.25 mg PO BEDTIME 07/31/18 [History] clonazePAM [Klonopin] 1 mg PO QAM 07/31/18 [History] amLODIPine Besylate [Amlodipine Besylate] 5 mg PO DAILY 10/06/19 [History] Diclofenac Sodium [Voltaren] 75 mg PO BIDMEALS PRN #30 tab.cr 10/13/19 [Rx] Past Medical History - Past Health History Medical/Surgical History: Denies Medical/Surgical History HEENT History: Reports: None Cardiovascular History: Reports: High Cholesterol, Hypertension Other Cardiovascular History: chest pain and SOB r/t anxiety Respiratory History: Reports: SOB, Other (See Below) Other Respiratory History: SOB r/t anxiety Gastrointestinal History: Reports: Chronic Diarrhea, GERD, Other (See Below) Other Gastrointestinal History: Bleeding from the rectum Genitourinary History: Reports: None Musculoskeletal History: Reports: Back Pain, Chronic, Fracture, Neck Pain, Chronic Other Musculoskeletal History: dislocation left elbow, Neurological History: Reports: Migraines Psychiatric History: Reports: Anxiety, Depression, Panic Attack, Psych Hospitalization(s), PTSD, Suicide Attempt Other Psychiatric History: "hypersensitivity to body" Endocrine/Metabolic History: Reports: None Hematologic History: Reports: None Immunologic History: Reports: None Oncologic (Cancer) History: Reports: None Dermatologic History: Reports: None - Infectious Disease History Infectious Disease History: Reports: Measles - Past Surgical History Head Surgeries/Procedures: Reports: None HEENT Surgical History: Reports: Tonsillectomy Cardiovascular Surgical History: Reports: None Respiratory Surgical History: Reports: None GI Surgical History: Reports: None Neurological Surgical History: Reports: None Musculoskeletal Surgical History: Reports: Arthroscopic Knee Social & Family History - Family History Family Medical History: Noncontributory - Caffeine Use Caffeine Use: Reports: Soda, Tea Caffeine Use Comment: 5 cups/day ED ROS GENERAL - Review of Systems Review Of Systems: Comprehensive ROS is negative, except as noted in HPI. ED EXAM, UPPER BACK/NECK PAIN - Physical Exam Exam: See Below (See dictation) Course - Vital Signs Last Recorded V/S: Last Vital Signs Temp 97.1 F 10/13/19 11:18 Pulse 78 10/13/19 11:18 Resp 17 10/13/19 11:18 BP 127/87 10/13/19 11:18 Pulse Ox 98 10/13/19 11:18 - Orders/Labs/Meds Meds: Medications Discontinued Medications Generic Name Dose Route Start Last Admin Trade Name Freq PRN Reason Stop Dose Admin Hydrocodone Bitart/Acetaminophen 1 tab 10/13/19 11:44 [place] 325-5 Mg PO 10/13/19 11:45 ONETIME ONE Dexamethasone 4 mg 10/13/19 11:44 Dexamethasone PO 10/13/19 11:45 ONETIME ONE Departure - Departure Time of Disposition: 11:49 Disposition: Home, Self-Care 01 Clinical Impression: Cervical radiculopathy - Discharge Information Prescriptions: Diclofenac Sodium [Voltaren] 75 mg PO BIDMEALS PRN #30 tab.cr PRN Reason: Pain Instructions: Cervical Radiculopathy, [id number] Referrals: Terrance Bailon SUGAR CONTROLLER [Primary Care Provider] - Forms: ED Department Discharge Additional Instructions: The following information is given to patients seen in the emergency department who are being discharged to home. This information is to outline your options for follow-up care. We provide all patients seen in our emergency department with a follow-up referral. The need for follow-up, as well as the timing and circumstances, are variable depending upon the specifics of your emergency department visit. If you don't have a primary care physician on staff, we will provide you with a referral. We always advise you to contact your personal physician following an emergency department visit to inform them of the circumstance of the visit and for follow-up with them and/or the need for any referrals to a consulting specialist. The emergency department will also refer you to a specialist when appropriate. This referral assures that you have the opportunity for follow-up care with a specialist. All of these measure are taken in an effort to provide you with optimal care, which includes your follow-up. Under all circumstances we always encourage you to contact your private physician who remains a resource for coordinating your care. When calling for follow-up care, please make the office aware that this follow-up is from your recent emergency room visit. If for any reason you are refused follow-up, please contact the [facility] Emergency Department at and asked to speak to the emergency department charge nurse. [facility] Primary Care [address] [place] [id number] [place] [address] Thank you for choosing the [facility] emergency department in [place] for your medical needs today. It was a pleasure caring for you. Today you were seen in the emergency department for neck pain. 1. Today your physical exam is concerning for cervical radiculopathy. This is a nerve impingement that is located in the neck and can radiate into the arm. Treatment of this is usually physical therapy, epidural steroid injection, stimulators and 2. Today you received Decadron and 1 tablet of [place] (correction use of narcotics -has interactions with the medications you take on a daily basis so this is not recommended). A prescription for diclofenac, and anti-inflammatory has been prescribed. Do not take any additional NSAIDs such as ibuprofen, Aleve or naproxen. You can continue to take your muscle relaxer with this medication. 3. We always encourage you to follow up with your primary care provider or recommended specialist in the next few days for re-evaluation and further care/management. If your symptoms should worsen, new symptoms develop or any of the signs and symptoms we discussed should arise please return to the emergency room or call 911 (if needed). Sepsis Event Note (ED) - Evaluation Sepsis Screening Result: No Definite Risk - Focused Exam Vital Signs: Vital Signs Temp Pulse Resp BP Pulse Ox 10/13/19 11:18 97.1 F 78 17 127/87 98
== END 2019-10-13 12:09 | disposition home or self-care (01) ==
LOC: MW.ED 11:08
DX: M54.12 Radiculopathy, cervical region (principal); I10 Essential (primary) hypertension; F41.9 Anxiety disorder, unspecified; F32.9 Major depressive disorder, single episode, unspecified; K21.9 Gastro-esophageal reflux disease without esophagitis; Z79.899 Other long term (current) drug therapy
CPT/HCPCS: 99283; A9270; J8540

== ENCOUNTER 2020-03-16 08:36 | Emergency (ER) | payer OTHER ==
[2020-03-16] MEDS ORDERED: Ketorolac 30 MG/ML SDV IM ONE (08:49)
[2020-03-16] MEDS ORDERED: Dexamethasone 10 MG/ML SDV IM ONE (08:49)
[2020-03-16] MEDS ORDERED: Cyclobenzaprine 10 MG Tab PO ONE (08:49)
--- NOTE | 2020-03-16 08:49 | EDM.PDOC ---
ED HPI GENERAL MEDICAL PROBLEM - General Chief Complaint: Headache Stated Complaint: MIGRAINE Time Seen by Provider: 03/16/20 08:42 Source of Information: Reports: Patient History Limitations: Reports: No Limitations - History of Present Illness INITIAL COMMENTS - FREE TEXT/NARRATIVE: 44-year-old male past medical history cervicalgia presents for cervicalgia. Patient notes that he typically receives his care at the [facility] and is followed up by their physicians. He notes that he had an MRI recently that did not reveal any acute pathology. He notes that when his pain gets this bad he is typically able to come to the emergency department and get some sort of shot that helps immensely. He states this feels typical for his cervicalgia. It is not worst headache of life. He denies fevers, shortness of breath. Headache Pain Score (Numeric/FACES): 8 - Related Data Allergies Allergy/AdvReac Type Severity Reaction Status Date / Time No Known Allergies Allergy Verified 03/16/20 08:42 Home Meds: Home Meds Gabapentin [Neurontin] 300 mg PO BID 06/08/13 [History] Doxylamine Succinate [Unisom Sleep Aid] 50 mg PO BEDTIME 08/15/14 [History] PARoxetine [Paxil] 10 mg PO DAILY 08/15/14 [History] Lisinopril [Prinivil] 40 mg PO DAILY 06/06/16 [History] Omeprazole 20 mg PO DAILY 10/26/17 [History] ALPRAZolam [Alprazolam ER] 0.5 mg PO ASDIRECTED PRN 07/31/18 [History] ClonazePAM [KlonoPIN] 0.25 mg PO BEDTIME 07/31/18 [History] clonazePAM [Klonopin] 1 mg PO QAM 07/31/18 [History] amLODIPine Besylate [Amlodipine Besylate] 5 mg PO DAILY 10/06/19 [History] Diclofenac Sodium [Voltaren] 75 mg PO BIDMEALS PRN #30 tab.cr 10/13/19 [Rx] Acetaminophen/oxyCODONE [Percocet 325-5 MG] 1 - 2 each PO Q4H PRN #18 tab 03/16/20 [Rx] Ibuprofen [Motrin] 600 mg PO Q6H PRN #30 tab 03/16/20 [Rx] Past Medical History - Past Health History Medical/Surgical History: Denies Medical/Surgical History HEENT History: Reports: None Cardiovascular History: Reports: High Cholesterol, Hypertension Other Cardiovascular History: chest pain and SOB r/t anxiety Respiratory History: Reports: SOB, Other (See Below) Other Respiratory History: SOB r/t anxiety Gastrointestinal History: Reports: Chronic Diarrhea, GERD, Other (See Below) Other Gastrointestinal History: Bleeding from the rectum Genitourinary History: Reports: None Musculoskeletal History: Reports: Back Pain, Chronic, Fracture, Neck Pain, Chronic Other Musculoskeletal History: dislocation left elbow, Neurological History: Reports: Migraines Psychiatric History: Reports: Anxiety, Depression, Panic Attack, Psych Hospitalization(s), PTSD, Suicide Attempt Other Psychiatric History: "hypersensitivity to body" Endocrine/Metabolic History: Reports: None Hematologic History: Reports: None Immunologic History: Reports: None Oncologic (Cancer) History: Reports: None Dermatologic History: Reports: None - Infectious Disease History Infectious Disease History: Reports: Measles - Past Surgical History Head Surgeries/Procedures: Reports: None HEENT Surgical History: Reports: Tonsillectomy Cardiovascular Surgical History: Reports: None Respiratory Surgical History: Reports: None GI Surgical History: Reports: None Neurological Surgical History: Reports: None Musculoskeletal Surgical History: Reports: Arthroscopic Knee Social & Family History - Family History Family Medical History: No Pertinent Family History - Caffeine Use Caffeine Use: Reports: Soda, Tea Caffeine Use Comment: 5 cups/day ED ROS GENERAL - Review of Systems Review Of Systems: Comprehensive ROS is negative, except as noted in HPI. ED EXAM, GENERAL - Physical Exam Exam: See Below Exam Limited By: No Limitations General Appearance: Alert, WD/WN, No Apparent Distress Throat/Mouth: Normal Voice, No Airway Compromise Head: Atraumatic, Normocephalic Neck: Normal Inspection, Supple, Full Range of Motion, Other (No C-spine tenderness to palpation, mild left paracervical muscular tenderness noticed to palpation, no meningeal signs) Respiratory/Chest: No Respiratory Distress, Lungs Clear, Normal Breath Sounds, No Accessory Muscle Use Cardiovascular: Normal Peripheral Pulses, Regular Rate, Rhythm Back Exam: Normal Inspection Extremities: Normal Inspection Neurological: Alert, Normal Gait Psychiatric: Normal Affect, Normal Mood Skin Exam: Warm, Dry, Intact, Normal Color Course - Vital Signs Last Recorded V/S: Last Vital Signs Temp 97 F 03/16/20 08:43 Pulse 82 03/16/20 08:43 Resp 18 03/16/20 08:43 BP 131/97 H 03/16/20 08:43 Pulse Ox 96 03/16/20 08:43 - Orders/Labs/Meds Meds: Medications Discontinued Medications Generic Name Dose Route Start Last Admin Trade Name Freq PRN Reason Stop Dose Admin Cyclobenzaprine HCl 10 mg 03/16/20 08:49 03/16/20 09:07 Flexeril PO 03/16/20 08:50 10 mg ONETIME ONE Administration Dexamethasone 10 mg 03/16/20 08:49 03/16/20 09:07 Decadron IM 03/16/20 08:50 10 mg ONETIME ONE Administration Ketorolac Tromethamine 30 mg 03/16/20 08:49 03/16/20 09:07 Toradol IM 03/16/20 08:50 30 mg ONETIME ONE Administration - Re-Assessments/Exams Free Text/Narrative Re-Assessment/Exam: 03/16/20 08:58 Will trial Toradol, Decadron, Flexeril. Will discharge with analgesia and muscle relaxant if these medications are effective. Patient is encouraged to follow-up with his doctors at the [facility] for longer-term management of chronic medical condition. Departure - Departure Time of Disposition: 09:28 Disposition: Home, Self-Care 01 Condition: Good Clinical Impression: Cervicalgia, Cervical radiculopathy - Discharge Information Prescriptions: Ibuprofen [Motrin] 600 mg PO Q6H PRN #30 tab PRN Reason: Pain Acetaminophen/oxyCODONE [Percocet 325-5 MG] 1 - 2 each PO Q4H PRN #18 tab PRN Reason: Pain Instructions: Cervical Radiculopathy, [id number] Referrals: Terrance Bailon, SPECIALTY MANUFACTURING SUPERVISOR [Primary Care Provider] - Forms: ED Department Discharge Additional Instructions: The following information is given to patients seen in the emergency department who are being discharged to home. This information is to outline your options for follow-up care. We provide all patients seen in our emergency department with a follow-up referral. The need for follow-up, as well as the timing and circumstances, are variable depending upon the specifics of your emergency department visit. If you don't have a primary care physician on staff, we will provide you with a referral. We always advise you to contact your personal physician following an emergency department visit to inform them of the circumstance of the visit and for follow-up with them and/or the need for any referrals to a consulting specialist. The emergency department will also refer you to a specialist when appropriate. This referral assures that you have the opportunity for follow-up care with a specialist. All of these measure are taken in an effort to provide you with optimal care, which includes your follow-up. Under all circumstances we always encourage you to contact your private physician who remains a resource for coordinating your care. When calling for follow-up care, please make the office aware that this follow-up is from your recent emergency room visit. If for any reason you are refused follow-up, please contact the [facility] Emergency Department at and asked to speak to the emergency department charge nurse. Please follow up with your primary care physician. If you do not have a primary care physician, see below: [facility] [address] [place] [id number] [facility] [address] [place] [id number] [facility] [address] [place] [id number] Sepsis Event Note (ED) - Evaluation Sepsis Screening Result: No Definite Risk - Focused Exam Vital Signs: Vital Signs Temp Pulse Resp BP Pulse Ox 03/16/20 08:43 97 F 82 18 131/97 H 96
[2020-03-16 09:57] VITALS: BP 119/84; PULSE 70
== END 2020-03-16 09:57 | disposition home or self-care (01) ==
LOC: MW.ED 08:36
DX: M54.12 Radiculopathy, cervical region (principal); I10 Essential (primary) hypertension; K21.9 Gastro-esophageal reflux disease without esophagitis; Z79.899 Other long term (current) drug therapy
CPT/HCPCS: 96372; 99283; A9270; J1100; J1885

== ENCOUNTER 2020-06-18 23:48 | Emergency (ER) | payer OTHER ==
[2020-06-19] MEDS ORDERED: traMADol 50 MG Tab PO ONE (00:32)
--- NOTE | 2020-06-19 00:37 | EDM.PDOC ---
ED HPI GENERAL MEDICAL PROBLEM - General Chief Complaint: General Stated Complaint: JAW PAIN Time Seen by Provider: 06/19/20 00:32 - History of Present Illness INITIAL COMMENTS - FREE TEXT/NARRATIVE: HISTORY AND PHYSICAL: History of present illness: This is a 45-year-old gentleman with a history significant for PTSD, jaw pain, poor dentition, who is currently in the process of having dental work done to his tooth #21 who presents ER today secondary to severe pain to his tooth resulting in pain to his neck resulting in a migraine which is typical for him. Patient reports that he is taken the medication that he normally takes including acetaminophen, ibuprofen, Zofran, oxycodone without significant relief. Patient does have an appointment tomorrow [facility]. Patient has any recent fevers, shakes, chills, nausea, vomiting, diarrhea, dysuria, frequency, urgency. Review of systems: As per history of present illness and below otherwise all systems reviewed and negative. Past medical history: As per history of present illness and as reviewed below otherwise noncontributory. Surgical history: As per history of present illness and as reviewed below otherwise noncontributory. Social history: No reported history of drug or alcohol abuse. Family history: As per history of present illness and as reviewed below otherwise noncontributory. Physical exam: This patient was seen and evaluated during the 2019 SARS-CoV-2 novel coronavirus pandemic period. Community viral transmission is ongoing at time of this encounter and the emergency department is operating under pandemic response procedures. Constitutional: Patient is oriented to person, place, and time. Appears well- developed and well-nourished. No distress. HEENT: Moist mucous membranes Head: Normocephalic and atraumatic. Neck supple, no nuchal rigidity, no photophobia, no Kernig's sign or Brudzinski sign, patient does not present with signs or symptoms of be consistent with meningitis. Eyes: Right eye exhibits no discharge. Left eye exhibits no discharge. No scleral icterus Neck: Normal range of motion. No tracheal deviation present. Cardiovascular: Normal rate and regular rhythm. Pulmonary: Effort normal, no respiratory distress. Abdominal: No distention Musculoskeletal: Normal range of motion Neurologic: Alert and oriented to person, place and time. Skin: [place], warm and dry. Psychiatric: Normal mood and affect. Behavior is normal. Judgment and thought content normal. Nursing note and vital signs have been reviewed Patient's ER physical exam is significant for diffuse dental caries with pain and discomfort to his tooth #20 and 21. Diagnostics: [] Therapeutics: [] Assessment and plan: 45-year-old gentleman with history of poor dentition who presents ER today with pain to his tooth resulting in neck pain jaw pain and headache. Patient is requesting assistance with pain and discomfort until he is able to get his tooth taken care of. Patient reports that he took 1 oxycodone earlier today without any relief. Patient is prescribed 2 tablets every 4 hours of oxycodone which she did not take. Patient reports that he is extremely anxious about taking too much pain medicines and does not want be addicted to his pain meds. Patient was given a dose of Ultram here in the ED and will be instructed to wait 1 hour when he gets home and if he still has a significant mount of pain to take an extra oxycodone prior to going to sleep. Patient needs to follow-up with his dentist as soon as possible for definitive management of his dental caries. Reassessment at the time of disposition demonstrates that the patient is in no acute distress. The patient has remained stable throughout the entire ED visit and is without objective evidence for acute process requiring urgent intervention or hospitalization. The patient is stable for discharge, counseling is provided as documented above, discussed symptomatic treatment and specific conditions for return. I have spoken with the patient/caregiver and discussed todays findings, in addition to providing specific details for the plan of care. Questions are answered and there is agreement with the plan. Definitive disposition and diagnosis as appropriate pending reevaluation and review of above. left tooth Pain Score (Numeric/FACES): 9 - Related Data Allergies Allergy/AdvReac Type Severity Reaction Status Date / Time No Known Allergies Allergy Verified 06/19/20 00:08 Home Meds: Home Meds Gabapentin [Neurontin] 300 mg PO BID 06/08/13 [History] Doxylamine Succinate [Unisom Sleep Aid] 50 mg PO BEDTIME 08/15/14 [History] PARoxetine [Paxil] 10 mg PO DAILY 08/15/14 [History] Lisinopril [Prinivil] 40 mg PO DAILY 06/06/16 [History] Omeprazole 20 mg PO DAILY 10/26/17 [History] ALPRAZolam [Alprazolam ER] 0.5 mg PO ASDIRECTED PRN 07/31/18 [History] ClonazePAM [KlonoPIN] 0.25 mg PO BEDTIME 07/31/18 [History] clonazePAM [Klonopin] 1 mg PO QAM 07/31/18 [History] amLODIPine Besylate [Amlodipine Besylate] 5 mg PO DAILY 10/06/19 [History] Diclofenac Sodium [Voltaren] 75 mg PO BIDMEALS PRN #30 tab.cr 10/13/19 [Rx] Acetaminophen/oxyCODONE [Percocet 325-5 MG] 1 - 2 each PO Q4H PRN #18 tab 03/16/20 [Rx] Cyclobenzaprine [Flexeril] 5 mg PO Q8H PRN #12 tab 03/16/20 [Rx] Ibuprofen [Motrin] 600 mg PO Q6H PRN #30 tab 03/16/20 [Rx] Past Medical History - Past Health History Medical/Surgical History: Denies Medical/Surgical History HEENT History: Reports: None Cardiovascular History: Reports: High Cholesterol, Hypertension Other Cardiovascular History: chest pain and SOB r/t anxiety Respiratory History: Reports: SOB, Other (See Below) Other Respiratory History: SOB r/t anxiety Gastrointestinal History: Reports: Chronic Diarrhea, GERD, Other (See Below) Other Gastrointestinal History: Bleeding from the rectum Genitourinary History: Reports: None Musculoskeletal History: Reports: Back Pain, Chronic, Fracture, Neck Pain, Chronic Other Musculoskeletal History: dislocation left elbow, Neurological History: Reports: Migraines Psychiatric History: Reports: Anxiety, Depression, Panic Attack, Psych Hospitalization(s), PTSD, Suicide Attempt Other Psychiatric History: "hypersensitivity to body" Endocrine/Metabolic History: Reports: None Hematologic History: Reports: None Immunologic History: Reports: None Oncologic (Cancer) History: Reports: None Dermatologic History: Reports: None - Infectious Disease History Infectious Disease History: Reports: Measles - Past Surgical History Head Surgeries/Procedures: Reports: None HEENT Surgical History: Reports: Tonsillectomy Cardiovascular Surgical History: Reports: None Respiratory Surgical History: Reports: None GI Surgical History: Reports: None Neurological Surgical History: Reports: None Musculoskeletal Surgical History: Reports: Arthroscopic Knee Other Musculoskeletal Surgeries/Procedures:: left knee surgery, no plates Social & Family History - Family History Family Medical History: No Pertinent Family History - Caffeine Use Caffeine Use: Reports: None Caffeine Use Comment: 5 cups/day - Recreational Drug Use Recreational Drug Use: No ED ROS GENERAL - Review of Systems Review Of Systems: See Below ED EXAM, GENERAL - Physical Exam Exam: See Below Course - Vital Signs Last Recorded V/S: Last Vital Signs Temp 97.5 F 06/19/20 00:05 Pulse 80 06/19/20 00:05 Resp 16 06/19/20 00:05 BP 128/88 06/19/20 00:05 Pulse Ox 94 L 06/19/20 00:05 - Orders/Labs/Meds Orders: Active Orders 24 hr Category Date Time Status traMADol [Ultram] Med 06/19/20 00:32 Once 50 mg PO ONETIME ONE Departure - Departure Time of Disposition: 00:35 Disposition: Home, Self-Care 01 Condition: Good Clinical Impression: Dental abscess, Dental caries, Neck pain - Discharge Information Instructions: Dental Abscess, [id number] Referrals: PCP,None [Primary Care Provider] - Additional Instructions: You were seen and evaluated in the ER today secondary to pain in your neck, headache, jaw pain that is most likely related to poor dentition and cavity to your left lower teeth. You will be given a dose of Ultram here in the ED. If you are still experiencing a significant mount of pain after 1 hour, please take an extra dose of your oxycodone to help you get some sleep. Please call your primary care doctor tomorrow and see her as scheduled. Please call your dentist in the morning to try to get in soon as possible. The following information is given to patients seen in the emergency department who are being discharged to home. This information is to outline your options for follow-up care. We provide all patients seen in our emergency department with a follow-up referral. The need for follow-up, as well as the timing and circumstances, are variable depending upon the specifics of your emergency department visit. If you don't have a primary care physician on staff, we will provide you with a referral. We always advise you to contact your personal physician following an emergency department visit to inform them of the circumstance of the visit and for follow-up with them and/or the need for any referrals to a consulting specialist. The emergency department will also refer you to a specialist when appropriate. This referral assures that you have the opportunity for follow-up care with a specialist. All of these measure are taken in an effort to provide you with optimal care, which includes your follow-up. Under all circumstances we always encourage you to contact your private physician who remains a resource for coordinating your care. When calling for follow-up care, please make the office aware that this follow-up is from your recent emergency room visit. If for any reason you are refused follow-up, please contact the [facility] Emergency Department at and asked to speak to the emergency department charge nurse. [facility] [address] [place] [address] [id number] [address] [address] Sepsis Event Note (ED) - Evaluation Sepsis Screening Result: No Definite Risk - Focused Exam Vital Signs: Vital Signs Temp Pulse Resp BP Pulse Ox 06/19/20 00:05 97.5 F 80 16 128/88 94 L - My Orders Last 24 Hours: My Active Orders 06/19/20 00:32 traMADol [Ultram] 50 mg PO ONETIME ONE - Assessment/Plan Last 24 Hours: My Active Orders 06/19/20 00:32 traMADol [Ultram] 50 mg PO ONETIME ONE
[2020-06-19 00:55] VITALS: BP 118/82; PULSE 82
== END 2020-06-19 00:57 | disposition home or self-care (01) ==
LOC: MW.ED 23:48
DX: K04.7 Periapical abscess without sinus (principal); K02.9 Dental caries, unspecified; M54.2 Cervicalgia; E78.00 Pure hypercholesterolemia, unspecified; I10 Essential (primary) hypertension; K21.9 Gastro-esophageal reflux disease without esophagitis; Z79.899 Other long term (current) drug therapy
CPT/HCPCS: 99283; A9270

== ENCOUNTER 2020-09-16 16:33 | Emergency (ER) | payer OTHER ==
[2020-09-16] MEDS ORDERED: Sodium Chloride 0.9% 1,000 ML IV ONE (16:43)
[2020-09-16] MEDS ORDERED: LORazepam 2 MG/ML SDV IVPUSH ONE (16:43)
--- NOTE | 2020-09-16 16:46 | PCM.EKG ---
#1 Interpretation EKG Date: 09/16/20 Time: 16:45 EKG Interpretation Comments: EKG: NSR, nonspecific ST/T changes, Rate - 78
--- NOTE | 2020-09-16 16:47 | EDM.PDOC ---
ED HPI GENERAL MEDICAL PROBLEM - General Chief Complaint: Chest Pain Stated Complaint: CHEST TIGHTNESS, POSSIBLE PANIC ATTACK Time Seen by Provider: 09/16/20 16:34 Source of Information: Reports: Patient History Limitations: Reports: No Limitations - History of Present Illness INITIAL COMMENTS - FREE TEXT/NARRATIVE: HISTORY AND PHYSICAL: History of present illness: Patient is a 45-year-old male who presents to the emergency room with complaints of left anterior chest pain that started approximately 45 minutes to an hour prior to arrival. He states while at work he started to develop chest pain which he believes is related to his anxiety/PTSD. He does have alprazolam available to him for episodes similar to this but states he was at work and was unable to take this medication. He started to feel sweaty, dizzy, bilateral hands tingling and have labored breathing. [facility] come to [facility] for evaluation. Patient denies any fever, chills, headache, change in vision, syncope or near syncope. Denies any back pain, shortness of breath or cough. Denies any abdominal pain, nausea, vomiting, diarrhea, constipation or dysuria. Has not noted any blood in urine or stool. Patient has been eating and drinking appropriately. Denies any alcohol or drug use. Review of systems: As per history of present illness and below otherwise all systems reviewed and negative. Past medical history: As per history of present illness and as reviewed below otherwise noncontributory. Surgical history: As per history of present illness and as reviewed below otherwise noncontributory. Social history: See social history for further information Family history: As per history of present illness and as reviewed below otherwise noncontributory. Physical exam: General: Well developed and well [id number] year old male. Alert and orientated x 3. Nontoxic in appearance and in no acute distress. Vital signs are stable and have been reviewed by me. Nursing notes were reviewed. HEENT: Atraumatic, normocephalic, pupils equal and reactive bilaterally, negative for conjunctival pallor or scleral icterus, mucous membranes moist, TMs normal bilaterally, throat clear, neck supple, nontender, trachea midline. No drooling or trismus noted. No meningeal signs. No hot potato voice noted. Lungs: Clear to auscultation bilaterally. No wheezes, rales, or rhonchi. Chest nontender. Normal work of breathing, no accessory muscles used. Heart: S1S2, regular rate and rhythm without overt murmur, gallops, or rubs. No JVD. No peripheral edema Abdomen: Soft, nondistended, nontender. Normoactive bowel sounds. Negative for masses or costovertebral tenderness. Skin: Intact, warm, dry. No lesions or rashes noted. Hematologic: No petechiae or purpra. Mucosa appropriate color and normal nail bed color and refill. Extremities: Atraumatic, moves all extremities per self without difficulty or deficits, negative for cords or calf pain. Neurovascular unremarkable. Neuro: Awake, alert, oriented. Cranial nerves II through XII unremarkable. Cerebellum unremarkable. Motor and sensory unremarkable throughout. Exam nonfocal. Psychiatric: Mood and affect are appropriate. Normal thought process. Answering questions appropriately. Notes: *This patient was seen and evaluated during the 2019 SARS-CoV-2 novel coronavirus pandemic period. Community viral transmission is ongoing at time of this encounter and the emergency department is operating under pandemic response procedures. Patient is a 45-year-old male who presents to the emergency room with complaints of left anterior chest pain. He believes that the chest pain is related to extreme anxiety/PTSD, as he has had panic attacks that have present like this before. Symptoms occurred while at work and he states he does not like taking his medication when he is at work or needs to drive. Instead he decided to come to the emergency room for evaluation. He states "I started thinking about it and wanted to make sure this was not my heart". Lab work shows no acute findings. EKG shows a sinus rhythm. CXR within normal limits. VSS. I have talked with the patient about today's findings, in addition to providing specific details for plan of care. He feels improved after IV fluids and medications. Reassessment at the time of disposition demonstrates that the patient is in no acute distress. The patient is stable for discharge, counseling was provided and we discussed in great detail signs and symptoms that would prompt them to return to the Emergency Department. Medication, follow up and supportive care measures were reviewed and discussed. Voices understanding and is agreeable to plan of care. Denies any further questions or concerns at this time. Diagnostics: CBC, CMP, EKG, CXR, Troponin Therapeutics: IV fluids, Ativan Prescription: None Impression: Chest pain Anxiety Plan: 1. You were evaluated today on an emergent basis. Your basic labs, cardiac enzymes, EKG, and chest x-ray are within normal limits. Please continue to monitor your symptoms closely. If your symptoms should worsen, new symptoms develop or any of the signs and symptoms we discussed should arise please return to the emergency room or call 911 (if needed). 2. You can alternate Tylenol and ibuprofen as needed for pain and fever management. 3. We encourage you to follow up with your primary care provider and/or recommended specialist in the next few days for re-evaluation and further care/management. Definitive disposition and diagnosis as appropriate pending reevaluation and review of above. chest Pain Score (Numeric/FACES): 2 - Related Data Allergies Allergy/AdvReac Type Severity Reaction Status Date / Time No Known Allergies Allergy Verified 09/16/20 16:39 Home Meds: Home Meds Gabapentin [Neurontin] 300 mg PO BID 06/08/13 [History] Doxylamine Succinate [Unisom Sleep Aid] 50 mg PO BEDTIME 08/15/14 [History] PARoxetine [Paxil] 10 mg PO DAILY 08/15/14 [History] Lisinopril [Prinivil] 40 mg PO DAILY 06/06/16 [History] Omeprazole 20 mg PO DAILY 10/26/17 [History] ALPRAZolam [Alprazolam ER] 0.5 mg PO ASDIRECTED PRN 07/31/18 [History] ClonazePAM [KlonoPIN] 0.25 mg PO BEDTIME 07/31/18 [History] clonazePAM [Klonopin] 1 mg PO QAM 07/31/18 [History] amLODIPine Besylate [Amlodipine Besylate] 5 mg PO DAILY 10/06/19 [History] Diclofenac Sodium [Voltaren] 75 mg PO BIDMEALS PRN #30 tab.cr 10/13/19 [Rx] Acetaminophen/oxyCODONE [Percocet 325-5 MG] 1 - 2 each PO Q4H PRN #18 tab 03/16/20 [Rx] Cyclobenzaprine [Flexeril] 5 mg PO Q8H PRN #12 tab 03/16/20 [Rx] Ibuprofen [Motrin] 600 mg PO Q6H PRN #30 tab 03/16/20 [Rx] Past Medical History - Past Health History Medical/Surgical History: Denies Medical/Surgical History HEENT History: Reports: None Cardiovascular History: Reports: High Cholesterol, Hypertension Other Cardiovascular History: chest pain and SOB r/t anxiety Respiratory History: Reports: SOB, Other (See Below) Other Respiratory History: SOB r/t anxiety Gastrointestinal History: Reports: Chronic Diarrhea, GERD, Other (See Below) Other Gastrointestinal History: Bleeding from the rectum Genitourinary History: Reports: None Musculoskeletal History: Reports: Back Pain, Chronic, Fracture, Neck Pain, Chronic Other Musculoskeletal History: dislocation left elbow, Neurological History: Reports: Migraines Psychiatric History: Reports: Anxiety, Depression, Panic Attack, Psych Hospitalization(s), PTSD, Suicide Attempt Other Psychiatric History: "hypersensitivity to body" Endocrine/Metabolic History: Reports: None Hematologic History: Reports: None Immunologic History: Reports: None Oncologic (Cancer) History: Reports: None Dermatologic History: Reports: None - Infectious Disease History Infectious Disease History: Reports: Measles - Past Surgical History Head Surgeries/Procedures: Reports: None HEENT Surgical History: Reports: Tonsillectomy Cardiovascular Surgical History: Reports: None Respiratory Surgical History: Reports: None GI Surgical History: Reports: None Neurological Surgical History: Reports: None Musculoskeletal Surgical History: Reports: Arthroscopic Knee Other Musculoskeletal Surgeries/Procedures:: left knee surgery, no plates Social & Family History - Family History Family Medical History: No Pertinent Family History - Caffeine Use Caffeine Use: Reports: None Caffeine Use Comment: 5 cups/day - Recreational Drug Use Recreational Drug Use: No ED ROS GENERAL - Review of Systems Review Of Systems: Comprehensive ROS is negative, except as noted in HPI. ED EXAM, GENERAL - Physical Exam Exam: See Below (See dictation) Course - Vital Signs Last Recorded V/S: Last Vital Signs Temp 98.8 F 09/16/20 16:37 Pulse 84 09/16/20 17:25 Resp 18 09/16/20 17:25 BP 106/72 09/16/20 17:25 Pulse Ox 98 09/16/20 17:25 - Orders/Labs/Meds Orders: Active Orders 24 hr Category Date Time Status EKG Documentation Completion [RC] STAT Care 09/16/20 16:43 Active Chest 1V Frontal [CR] Stat Exams 09/16/20 16:43 Taken Labs: Laboratory Tests 09/16/20 09/16/20 Range/Units 16:42 16:42 WBC 11.03 H (4.0-11.0) K/uL RBC 5.09 (4.50-5.90) M/uL Hgb 15.1 (13.0-17.0) g/dL Hct 43.3 (38.0-50.0) % MCV 85.1 (80.0-98.0) fL MCH 29.7 (27.0-32.0) pg MCHC 34.9 (31.0-37.0) g/dL RDW Std Deviation 43.3 (28.0-62.0) fl RDW Coeff of [place] 14 (11.0-15.0) % Plt Count 234 (150-400) K/uL MPV 10.40 (7.40-12.00) fL Neut % (Auto) 51.6 (48.0-80.0) % Lymph % (Auto) 37.5 (16.0-40.0) % Moca % (Auto) 8.7 (0.0-15.0) % Eos % (Auto) 1.8 (0.0-7.0) % Baso % (Auto) 0.4 (0.0-1.5) % Neut # (Auto) 5.7 (1.4-5.7) K/uL Lymph # (Auto) 4.1 H (0.6-2.4) K/uL Moca # (Auto) 1.0 H (0.0-0.8) K/uL Eos # (Auto) 0.2 (0.0-0.7) K/uL Baso # (Auto) 0.0 (0.0-0.1) K/uL Nucleated RBC % 0.0 /100WBC Nucleated RBCs # 0 K/uL Sodium 138 (136-148) mmol/L Potassium 3.5 (3.5-5.1) mmol/L Chloride 103 (98-107) mmol/L Carbon Dioxide 25.7 (21.0-32.0) mmol/L BUN 12 (7.0-18.0) mg/dL Creatinine 1.0 (0.8-1.3) mg/dL Est Cr Clr Drug Dosing 82.00 mL/min Estimated GFR (MDRD) > 60.0 ml/min Glucose 108 H (74-106) mg/dL Calcium 8.0 L (8.5-10.1) mg/dL Total Bilirubin 0.3 (0.2-1.0) mg/dL AST 21 (15-37) IU/L ALT 39 (14-63) IU/L Alkaline Phosphatase 96 (46-116) U/L Troponin I < 0.050 (0.000-0.056) ng/mL Total Protein 7.4 (6.4-8.2) g/dL Albumin 4.2 (3.4-5.0) g/dL Globulin 3.2 (2.6-4.0) g/dL Albumin/Globulin Ratio 1.3 (0.9-1.6) Meds: Medications Discontinued Medications Generic Name Dose Route Start Last Admin Trade Name Freq PRN Reason Stop Dose Admin Sodium Chloride 1,000 mls @ 999 mls/hr 09/16/20 16:43 09/16/20 17:05 Normal Saline IV 09/16/20 17:43 999 mls/hr STAT ONE Administration Lorazepam 1 mg 09/16/20 16:43 09/16/20 17:05 Lorazepam 2 Mg/Ml Sdv IVPUSH 09/16/20 16:44 1 mg ONETIME ONE Administration Departure - Departure Time of Disposition: 18:00 Disposition: Home, Self-Care 01 Clinical Impression: Nonspecific chest pain, Anxiety Referrals: Terrance Bailon [employer] SERVER [employer] DEVELOPER [Primary Care Provider] - Forms: ED Department Discharge Additional Instructions: The following information is given to patients seen in the emergency department who are being discharged to home. This information is to outline your options for follow-up care. We provide all patients seen in our emergency department with a follow-up referral. The need for follow-up, as well as the timing and circumstances, are variable depending upon the specifics of your emergency department visit. If you don't have a primary care physician on staff, we will provide you with a referral. We always advise you to contact your personal physician following an emergency department visit to inform them of the circumstance of the visit and for follow-up with them and/or the need for any referrals to a consulting specialist. The emergency department will also refer you to a specialist when appropriate. This referral assures that you have the opportunity for follow-up care with a specialist. All of these measure are taken in an effort to provide you with optimal care, which includes your follow-up. Under all circumstances we always encourage you to contact your private physician who remains a resource for coordinating your care. When calling for follow-up care, please make the office aware that this follow-up is from your recent emergency room visit. If for any reason you are refused follow-up, please contact the [facility] Emergency Department at and asked to speak to the emergency department charge nurse. [facility] [address] [place] [id number] [facility] [address] [place] [id number] Thank you for choosing the [facility] emergency department in [place] for your medical needs today. It was a pleasure caring for you. Today you were seen in the emergency department for chest pain and anxiety. 1. You were evaluated today on an emergent basis. Your basic labs, cardiac enzymes, EKG, and chest x-ray are within normal limits. Please continue to monitor your symptoms closely. If your symptoms should worsen, new symptoms develop or any of the signs and symptoms we discussed should arise please return to the emergency room or call 911 (if needed). 2. You can alternate Tylenol and ibuprofen as needed for pain and fever management. 3. We encourage you to follow up with your primary care provider and/or recommended specialist in the next few days for re-evaluation and further care/management. Sepsis Event Note (ED) - Evaluation Sepsis Screening Result: No Definite Risk - Focused Exam Vital Signs: Vital Signs Temp Pulse Resp BP Pulse Ox 09/16/20 17:25 84 18 106/72 98 09/16/20 16:37 98.8 F 88 124/97 H 97 - My Orders Last 24 Hours: My Active Orders 09/16/20 16:43 EKG Documentation Completion [RC] STAT Chest 1V Frontal [CR] Stat - Assessment/Plan Last 24 Hours: My Active Orders 09/16/20 16:43 EKG Documentation Completion [RC] STAT Chest 1V Frontal [CR] Stat
[2020-09-16 17:12] LABS: BLOOD UREA NITROGEN,BUN 12 mg/dL (7.0-18.0); CARBON DIOXIDE,CO2 25.7 mmol/L (21.0-32.0); CHLORIDE,CL 103 mmol/L (98-107); GLUCOSE RANDOM 108 mg/dL (74-106); POTASSIUM,K 3.5 mmol/L (3.5-5.1); SODIUM,NA 138 mmol/L (136-148)
--- NOTE | 2020-09-16 18:01 | CR ---
Indication: Chest pain Technique: Chest 1 view Comparison: May 19, 2019 Findings/Impression: Cardiovascular and mediastinum: Heart size and vasculature are normal in caliber and appearance. Mediastinum is within normal limits. Lungs and pleural space: Lungs are clear. No sign of infiltrate or mass. No sign of pleural effusion. No pneumothorax. Bones and soft tissues: No significant findings. Dictated by Avani Payton MD @ 09/16/2020 5:58:[address] Avani Payton @ Sep 16 2020 5:58PM
[2020-09-16 18:27] VITALS: BP 131/72; PULSE 78
== END 2020-09-16 18:19 | disposition home or self-care (01) ==
LOC: MW.ED 16:33
DX: F41.9 Anxiety disorder, unspecified (principal); R07.89 Other chest pain; I10 Essential (primary) hypertension; K21.9 Gastro-esophageal reflux disease without esophagitis; Z79.899 Other long term (current) drug therapy
CPT/HCPCS: 36415; 71045; 80053; 84484; 85025; 93005; 96374; 99285; J2060; J7030

== ENCOUNTER 2020-09-16 22:43 | Emergency (ER) | payer OTHER ==
[2020-09-16 23:20] VITALS: BP 148/100; PULSE 70
[2020-09-16] MEDS ORDERED: Ketorolac 30 MG/ML SDV IM ONE (23:32)
[2020-09-17] MEDS ORDERED: Dexamethasone 10 MG/ML SDV IM ONE (00:03)
--- NOTE | 2020-09-17 00:09 | EDM.PDOC ---
ED HPI GENERAL MEDICAL PROBLEM - General Chief Complaint: Neck Problem Stated Complaint: NECK PAIN Time Seen by Provider: 09/16/20 23:28 Source of Information: Reports: Patient - History of Present Illness INITIAL COMMENTS - FREE TEXT/NARRATIVE: History of present illness: 45-year-old male presenting with neck pain, predominantly left-sided which has been present previously, and for which he has had x-ray, CT and MRI. He reported this time it worsened again after he had a panic attack and felt like he cramped his neck. Now it feels tight and painful and difficulty moving the neck. He does have some underlying chronic neck issues and is scheduled to have a cortisone injection of the neck in the next few days. No fevers. No headache. No other symptoms associated. He did get a ride here. Review of systems: As per history of present illness and below otherwise all systems reviewed and negative. Past medical history: As per history of present illness and as reviewed below otherwise no ncontributory. Surgical history: As per history of present illness and as reviewed below otherwise noncontributory. Social history: No reported history of drug or alcohol abuse. Family history: As per history of present illness and as reviewed below otherwise noncontributory. Physical exam: GEN: no acute distress, well appearing HEENT: Atraumatic, normocephalic, mucous membranes moist, Neck: Left trapezius tenderness. Painful range of motion. No rigidity. No meningismus. trachea midline. No midline tenderness. No step-offs. No right trapezius tenderness. Lungs: No respiratory distress. Heart: RRR Abdomen: Soft, nondistended, nontender. Back: nontender Extremities: Atraumatic. Neurovascularly intact. Neuro: Awake, alert, oriented. Neuro Exam nonfocal. Skin: warm, dry, no lesions Diagnostics: Not indicated Therapeutics: IM Toradol and Decadron MDM: Impression: Acute cervical myofascial pain Plan: Outpatient follow-up as planned Definitive disposition and diagnosis as appropriate pending reevaluation and review of above. Middle Neck Pain Score (Numeric/FACES): 10 - Related Data Allergies Allergy/AdvReac Type Severity Reaction Status Date / Time No Known Allergies Allergy Verified 09/16/20 16:39 Home Meds: Home Meds Gabapentin [Neurontin] 300 mg PO BID 06/08/13 [History] Doxylamine Succinate [Unisom Sleep Aid] 50 mg PO BEDTIME 08/15/14 [History] PARoxetine [Paxil] 10 mg PO DAILY 08/15/14 [History] Lisinopril [Prinivil] 40 mg PO DAILY 06/06/16 [History] Omeprazole 20 mg PO DAILY 10/26/17 [History] ALPRAZolam [Alprazolam ER] 0.5 mg PO ASDIRECTED PRN 07/31/18 [History] ClonazePAM [KlonoPIN] 0.25 mg PO BEDTIME 07/31/18 [History] clonazePAM [Klonopin] 1 mg PO QAM 07/31/18 [History] amLODIPine Besylate [Amlodipine Besylate] 2.5 mg PO DAILY 10/06/19 [History] Acetaminophen/oxyCODONE [Percocet 325-5 MG] 1 - 2 each PO Q4H PRN #18 tab 03/16/20 [Rx] Cyclobenzaprine [Flexeril] 5 mg PO Q8H PRN #12 tab 03/16/20 [Rx] Ibuprofen [Motrin] 600 mg PO Q6H PRN #30 tab 03/16/20 [Rx] Past Medical History - Past Health History Medical/Surgical History: Denies Medical/Surgical History HEENT History: Reports: None Cardiovascular History: Reports: High Cholesterol, Hypertension Other Cardiovascular History: chest pain and SOB r/t anxiety Respiratory History: Reports: SOB, Other (See Below) Other Respiratory History: SOB r/t anxiety Gastrointestinal History: Reports: Chronic Diarrhea, GERD, Other (See Below) Other Gastrointestinal History: Bleeding from the rectum Genitourinary History: Reports: None Musculoskeletal History: Reports: Back Pain, Chronic, Fracture, Neck Pain, Chronic Other Musculoskeletal History: dislocation left elbow, Neurological History: Reports: Migraines Psychiatric History: Reports: Anxiety, Depression, Panic Attack, Psych Hospitalization(s), PTSD, Suicide Attempt Other Psychiatric History: "hypersensitivity to body" Endocrine/Metabolic History: Reports: None Hematologic History: Reports: None Immunologic History: Reports: None Oncologic (Cancer) History: Reports: None Dermatologic History: Reports: None - Infectious Disease History Infectious Disease History: Reports: Measles - Past Surgical History Head Surgeries/Procedures: Reports: None HEENT Surgical History: Reports: Tonsillectomy Cardiovascular Surgical History: Reports: None Respiratory Surgical History: Reports: None GI Surgical History: Reports: None Neurological Surgical History: Reports: None Musculoskeletal Surgical History: Reports: Arthroscopic Knee Other Musculoskeletal Surgeries/Procedures:: left knee surgery, no plates Social & Family History - Family History Family Medical History: No Pertinent Family History - Tobacco Use Tobacco Use Status *Q: Current Every Day Tobacco User Years of Tobacco use: 25 Packs/Tins Daily: 1 Second Hand Smoke Exposure: Yes - Caffeine Use Caffeine Use: Reports: Coffee Caffeine Use Comment: 5 cups/day - Recreational Drug Use Recreational Drug Use: No ED ROS GENERAL - Review of Systems Review Of Systems: See Below (See dictation) ED EXAM, GENERAL - Physical Exam Exam: See Below (See dictation) Course - Vital Signs Last Recorded V/S: Last Vital Signs Temp 97.4 F 09/16/20 23:19 Pulse 70 09/16/20 23:19 Resp 18 09/16/20 23:19 BP 148/100 H 09/16/20 23:19 Pulse Ox 98 09/16/20 23:19 - Orders/Labs/Meds Meds: Medications Discontinued Medications Generic Name Dose Route Start Last Admin Trade Name Masoud PRN Reason Stop Dose Admin Dexamethasone 10 mg 09/17/20 00:03 09/17/20 00:08 Dexamethasone 10 Mg/Ml Sdv IM 09/17/20 00:04 10 mg ONETIME ONE Administration Ketorolac Tromethamine 30 mg 09/16/20 23:32 09/17/20 00:04 Ketorolac 30 Mg/Ml Sdv IM 09/16/20 23:33 30 mg ONETIME ONE Administration - Re-Assessments/Exams Free Text/Narrative Re-Assessment/Exam: 09/17/20 00:59 Patient improved. Plan of care discussed. He has upcoming appointment for further neck evaluation. Stable for discharge Departure - Departure Time of Disposition: 01:00 Disposition: Home, Self-Care 01 Clinical Impression: Cervical myofascial strain - Discharge Information Instructions: Muscle Strain, [id number], Cervical Strain and Sprain Rehab- [facility] Referrals: Terrance Bailon TUBE BUFFER [Primary Care Provider] - 2 Days Forms: ED Department Discharge Additional Instructions: Please follow-up as planned for your neck injection. Return to the ER if you develop any severe or worsening pain. The following information is given to patients seen in the emergency department who are being discharged to home. This information is to outline your options for follow-up care. We provide all patients seen in our emergency department with a follow-up referral. The need for follow-up, as well as the timing and circumstances, are variable depending upon the specifics of your emergency department visit. If you don't have a primary care physician on staff, we will provide you with a referral. We always advise you to contact your personal physician following an emergency department visit to inform them of the circumstance of the visit and for follow-up with them and/or the need for any referrals to a consulting specialist. The emergency department will also refer you to a specialist when appropriate. This referral assures that you have the opportunity for follow-up care with a specialist. All of these measure are taken in an effort to provide you with optimal care, which includes your follow-up. Under all circumstances we always encourage you to contact your private physician who remains a resource for coordinating your care. When calling for follow-up care, please make the office aware that this follow-up is from your recent emergency room visit. If for any reason you are refused follow-up, please contact the [facility] Emergency Department at and asked to speak to the emergency department charge nurse. Sepsis Event Note (ED) - Evaluation Sepsis Screening Result: No Definite Risk - Focused Exam Vital Signs: Vital Signs Temp Pulse Resp BP Pulse Ox 09/16/20 23:19 97.4 F 70 18 148/100 H 98
== END 2020-09-17 00:55 | disposition home or self-care (01) ==
LOC: MW.ED 22:43
DX: S16.1XXA Strain of muscle, fascia and tendon at neck level, initial encounter (principal); I10 Essential (primary) hypertension; K21.9 Gastro-esophageal reflux disease without esophagitis; Z72.0 Tobacco use; Z79.899 Other long term (current) drug therapy; X58.XXXA Exposure to other specified factors, initial encounter
CPT/HCPCS: 96372; 99283; J1100; J1885

== ENCOUNTER 2021-01-08 02:29 | Emergency (ER) | payer OTHER ==
--- NOTE | 2021-01-08 03:19 | EDM.PDOC ---
ED HPI GENERAL MEDICAL PROBLEM - General Chief Complaint: Genitourinary Problem Stated Complaint: LEFT TESTICLE PAIN Time Seen by Provider: 01/08/21 02:52 - History of Present Illness INITIAL COMMENTS - FREE TEXT/NARRATIVE: HISTORY AND PHYSICAL: History of present illness: This is a 45-year-old gentleman who presents ER today complaining of pain to his left testicle that started 1 day ago. Patient reports that he noticed a lump to his testicle as well. Patient denies any recent fevers, shakes, chills, nausea, vomiting, diarrhea, dysuria, frequency, urgency, hematuria. Patient denies any penile discharge. Patient reports he has a history of cancer in his family is concerned that he might have testicular cancer. Patient reports that prior to yesterday he has not noticed a lump on his testicle. Review of systems: As per history of present illness and below otherwise all systems reviewed and negative. Past medical history: As per history of present illness and as reviewed below otherwise noncontributory. Surgical history: As per history of present illness and as reviewed below otherwise noncontributory. Social history: No reported history of drug abuse. Family history: As per history of present illness and as reviewed below otherwise noncontributory. Physical exam: This patient was seen and evaluated during the 2019 SARS-CoV-2 novel coronavirus pandemic period. Community viral transmission is ongoing at time of this encounter and the emergency department is operating under pandemic response procedures. Constitutional: Patient is oriented to person, place, and time. Appears well-developed and well-nourished. No distress. HEENT: Moist mucous membranes Head: Normocephalic and atraumatic Eyes: Right eye exhibits no discharge. Left eye exhibits no discharge. No scleral icterus Neck: Normal range of motion. No tracheal deviation present. Cardiovascular: Normal rate and regular rhythm. Pulmonary: Effort normal, no respiratory distress. Abdominal: No distention Musculoskeletal: Normal range of motion Neurologic: Alert and oriented to person, place and time. Skin: [place], warm and dry. Psychiatric: Normal mood and affect. Behavior is normal. Judgment and thought content normal. Nursing note and vital signs have been reviewed Left testes tender. Right testes nontender. Palpable mass noted to left testicle at approximately 5 o'clock position. No lymphadenopathy, or hernia defect. Normal cremasteric reflex. No penile discharge. Diagnostics: Ultrasound scrotum duplex: Left epididymal hyperemia consistent with acute epididymitis. Some prominence of the epididymal tail. This probably present swelling secondary to acute inflammation although repeat examination can be reconsidered after treatment to exclude a focal lesion. Therapeutics: Rocephin 1 g IM Doxycycline 100 mg twice a day x14 days Assessment and plan: 45-year-old gentleman who presents ER today with testicle pain as well as a noted mass to his left testicle. Ultrasound will be obtained to rule out torsion as well as testicular cancer. Ultrasound reveals a left epididymal hyperemia consistent with acute epididymitis. Patient will get started on antibiotics for treatment as the prominence at the epididymal tail is likely secondary to inflammatory changes from the infection. I will discuss with the patient the need for repeat ultrasound after treatment of his antibiotics. Reassessment at the time of disposition demonstrates that the patient is in no acute distress. The patient has remained stable throughout the entire ED visit and is without objective evidence for acute process requiring urgent intervention or hospitalization. The patient is stable for discharge, counseling is provided as documented above, discussed symptomatic treatment and specific conditions for return. I have spoken with the patient/caregiver and discussed todays findings, in addition to providing specific details for the plan of care. Questions are answered and there is agreement with the plan. Definitive disposition and diagnosis as appropriate pending reevaluation and review of above. left testicular pain Pain Score (Numeric/FACES): 6 - Related Data Allergies Allergy/AdvReac Type Severity Reaction Status Date / Time No Known Allergies Allergy Verified 01/08/21 03:00 Home Meds: Home Meds Gabapentin [Neurontin] 300 mg PO BID 06/08/13 [History] Doxylamine Succinate [Unisom Sleep Aid] 50 mg PO BEDTIME 08/15/14 [History] PARoxetine [Paxil] 10 mg PO DAILY 08/15/14 [History] Lisinopril [Prinivil] 40 mg PO DAILY 06/06/16 [History] Omeprazole 20 mg PO DAILY 10/26/17 [History] ALPRAZolam [Alprazolam ER] 0.5 mg PO ASDIRECTED PRN 07/31/18 [History] ClonazePAM [KlonoPIN] 0.25 mg PO BEDTIME 07/31/18 [History] clonazePAM [Klonopin] 1 mg PO QAM 07/31/18 [History] amLODIPine Besylate [Amlodipine Besylate] 2.5 mg PO DAILY 10/06/19 [History] Acetaminophen/oxyCODONE [Percocet 325-5 MG] 1 - 2 each PO Q4H PRN #18 tab 03/16/20 [Rx] Cyclobenzaprine [Flexeril] 5 mg PO Q8H PRN #12 tab 03/16/20 [Rx] Ibuprofen [Motrin] 600 mg PO Q6H PRN #30 tab 03/16/20 [Rx] Doxycycline [Vibramycin] 100 mg PO BID #28 cap 01/08/21 [Rx] Ibuprofen 600 mg PO Q6HR PRN #30 tablet 01/08/21 [Rx] Past Medical History - Past Health History Medical/Surgical History: Denies Medical/Surgical History HEENT History: Reports: None Cardiovascular History: Reports: High Cholesterol, Hypertension Other Cardiovascular History: chest pain and SOB r/t anxiety Respiratory History: Reports: SOB Other Respiratory History: SOB r/t anxiety Gastrointestinal History: Reports: Chronic Diarrhea, GERD, Other (See Below) Other Gastrointestinal History: Bleeding from the rectum Genitourinary History: Reports: None Musculoskeletal History: Reports: Back Pain, Chronic, Fracture, Neck Pain, Chronic Other Musculoskeletal History: dislocation left elbow, Neurological History: Reports: Migraines Psychiatric History: Reports: Anxiety, Depression, Panic Attack, Psych Hospitalization(s), PTSD, Suicide Attempt Other Psychiatric History: "hypersensitivity to body" Endocrine/Metabolic History: Reports: None Insulin Pump Model and Product Development Director: N/A Hematologic History: Reports: None Immunologic History: Reports: None Oncologic (Cancer) History: Reports: None Dermatologic History: Reports: None - Infectious Disease History Infectious Disease History: Reports: Measles - Past Surgical History Head Surgeries/Procedures: Reports: None HEENT Surgical History: Reports: Tonsillectomy Cardiovascular Surgical History: Reports: None Respiratory Surgical History: Reports: None GI Surgical History: Reports: None Neurological Surgical History: Reports: None Musculoskeletal Surgical History: Reports: Arthroscopic Knee Other Musculoskeletal Surgeries/Procedures:: left knee surgery, no plates Social & Family History - Family History Family Medical History: No Pertinent Family History - Caffeine Use Caffeine Use: Reports: Soda, Tea Caffeine Use Comment: 5 cups/day - Recreational Drug Use Recreational Drug Use: No ED ROS GENERAL - Review of Systems Review Of Systems: See Below ED EXAM, GENERAL - Physical Exam Exam: See Below Course - Vital Signs Last Recorded V/S: Last Vital Signs Temp 97.0 F 01/08/21 03:00 Pulse 102 H 01/08/21 03:00 Resp 18 01/08/21 03:00 BP 148/104 H 01/08/21 03:00 Pulse Ox 96 01/08/21 03:00 - Orders/Labs/Meds Orders: Active Orders 24 hr Category Date Time Status Scrotal Duplex Ltd [US] Stat Exams 01/08/21 02:58 Taken Labs: Laboratory Tests 01/08/21 Range/Units 03:00 Urine Color YELLOW Urine Appearance CLEAR Urine pH 5.5 (5.0-8.0) Ur Specific [place] 1.025 (1.001-1.035) Urine Protein NEGATIVE (NEGATIVE) mg/dL Urine Glucose (UA) NEGATIVE (NEGATIVE) mg/dL Urine Ketones NEGATIVE (NEGATIVE) mg/dL Urine Occult Blood SMALL H (NEGATIVE) Urine Nitrite NEGATIVE (NEGATIVE) Urine Bilirubin NEGATIVE (NEGATIVE) Urine Urobilinogen 0.2 (<2.0) EU/dL Ur Leukocyte Esterase NEGATIVE (NEGATIVE) Urine RBC 0-2 (0-2/HPF) Urine WBC 0-2 (0-5/HPF) Ur Epithelial Cells RARE (NONE-FEW) Urine Bacteria RARE (NEGATIVE) Departure - Departure Time of Disposition: 05:26 Disposition: Home, Self-Care 01 Condition: Good Clinical Impression: Epididymitis, Testicular swelling, left - Discharge Information Instructions: Epididymitis Referrals: PCP,None [Primary Care Provider] - Forms: ED Department Discharge Additional Instructions: You were seen and evaluated in the ER today secondary to a mass on your left testicle that is tender. The ultrasound that was obtained reveals likely acute epididymitis which is an infection of your epididymis and your testicle. You will get started on antibiotics. You will need to get a repeat ultrasound to rule out a focal lesion once you complete your antibiotic course. Please see your family doctor to get a repeat ultrasound after you complete your antibiotic course. You will be given a prescription for doxycycline 100 mg take twice a day for 14 days. You will also be given a shot of Rocephin intramuscularly. You can take ibuprofen as needed for pain and discomfort. The following information is given to patients seen in the emergency department who are being discharged to home. This information is to outline your options for follow-up care. We provide all patients seen in our emergency department with a follow-up referral. The need for follow-up, as well as the timing and circumstances, are variable depending upon the specifics of your emergency department visit. If you don't have a primary care physician on staff, we will provide you with a referral. We always advise you to contact your personal physician following an emergency department visit to inform them of the circumstance of the visit and for follow-up with them and/or the need for any referrals to a consulting specialist. The emergency department will also refer you to a specialist when appropriate. This referral assures that you have the opportunity for follow-up care with a specialist. All of these measure are taken in an effort to provide you with optimal care, which includes your follow-up. Under all circumstances we always encourage you to contact your private physician who remains a resource for coordinating your care. When calling for follow-up care, please make the office aware that this follow-up is from your recent emergency room visit. If for any reason you are refused follow-up, please contact the [facility] Emergency Department at and asked to speak to the emergency department charge nurse. [facility] - Primary Care [address] [place] [address] [facility] [address] [place] [id number] Sepsis Event Note (ED) - Evaluation Sepsis Screening Result: No Definite Risk - Focused Exam Vital Signs: Vital Signs Temp Pulse Resp BP Pulse Ox 01/08/21 03:00 97.0 F 102 H 18 148/104 H 96 - My Orders Last 24 Hours: My Active Orders 01/08/21 02:58 Scrotal Duplex Ltd [US] Stat - Assessment/Plan Last 24 Hours: My Active Orders 01/08/21 02:58 Scrotal Duplex Ltd [US] Stat
--- NOTE | 2021-01-08 04:57 | US ---
Indication: Left scrotal pain Technique: Ultrasound of the scrotum and contents. Sonographic moore-scale images were obtained with spectral and color Doppler waveform and spectral waveform analysis of the testicles. Comparison: None Findings: Right testicle: 4.3 x 2.2 x 2.9 centimeters. Normal echogenicity and blood flow. Right epididymis measures 9 x 8 x 8 millimeters and is unremarkable. Left testicle measures 4.5 x 2.3 x 2.9 centimeters and is normal in echogenicity with normal blood flow. Left epididymis measures 12 x 10 x 6 millimeters with hyperemia of the epididymal tail. The area of the epididymal tail is a bit prominent measuring 1.7 centimeters. Impression: 1. Left epididymal hyperemia consistent with acute epididymitis. Some prominence of the epididymal tail. This probably represents swelling secondary to acute inflammation although repeat examination can be considered after treatment to exclude a focal lesion. 2. Normal bilateral testicular blood flow. Dictated by Conner Maxwell MD @ 01/08/2021 4:56:15 AM (Electronically Signed)
[2021-01-08] MEDS ORDERED: Ibuprofen 600 MG Tab PO ONE (05:29)
[2021-01-08] MEDS ORDERED: cefTRIAXone 1 GM Vial IM ONE (05:29)
[2021-01-08] MEDS ORDERED: Doxycycline 100 MG Cap PO ONE (05:29)
[2021-01-08 05:57] VITALS: BP 138/92; PULSE 94
--- NOTE | 2021-01-11 10:39 | US ---
EXAM DATE: 01/08/21 PATIENT'S AGE: 45 Patient: LAYO MARICARMEN [facility] Site : [id number] Study: US-Testicle -01/08/2021 4:20:52 AM Ordering Physician: Ijeoma Rogel Final Report: Indication: Left scrotal pain Technique: Ultrasound of the scrotum and contents. Sonographic moore-scale images were obtained with spectral and color Doppler waveform and spectral waveform analysis of the testicles. Comparison: None Findings: Right testicle: 4.3 x 2.2 x 2.9 centimeters. Normal echogenicity and blood flow. Right epididymis measures 9 x 8 x 8 millimeters and is unremarkable. Left testicle measures 4.5 x 2.3 x 2.9 centimeters and is normal in echogenicity with normal blood flow. Left epididymis measures 12 x 10 x 6 millimeters with hyperemia of the epididymal tail. The area of the epididymal tail is a bit prominent measuring 1.7 centimeters. Impression: 1. Left epididymal hyperemia consistent with acute epididymitis. Some prominence of the epididymal tail. This probably represents swelling secondary to acute inflammation although repeat examination can be considered after treatment to exclude a focal lesion. 2. Normal bilateral testicular blood flow. Dictated by Conner Maxwell MD @ 01/08/2021 4:56:15 AM Signed by: Conner Maxwell MD @01/08/2021 4:56:15 AM (Electronic Signature) Report Signed by Proxy. TA
== END 2021-01-08 05:57 | disposition home or self-care (01) ==
LOC: MW.ED 02:29
DX: N45.1 Epididymitis (principal); E78.00 Pure hypercholesterolemia, unspecified; I10 Essential (primary) hypertension; K21.9 Gastro-esophageal reflux disease without esophagitis; Z79.899 Other long term (current) drug therapy
CPT/HCPCS: 76870; 81001; 93976; 96372; 99284; A9270; J0696

== ENCOUNTER 2021-01-13 15:23 | Emergency (ER) | payer OTHER ==
--- NOTE | 2021-01-13 15:26 | EDM.PDOC ---
ED HPI GENERAL MEDICAL PROBLEM - General Chief Complaint: Chest Pain Stated Complaint: CHEST TIGHTNESS, COUGHING UP YELLOW MUCUS Time Seen by Provider: 01/13/21 15:25 Source of Information: Reports: Patient History Limitations: Reports: No Limitations - History of Present Illness INITIAL COMMENTS - FREE TEXT/NARRATIVE: HISTORY AND PHYSICAL: History of present illness: Patient is a 45-year-old male who presents to the emergency room with complaints of chest pain since being at work this afternoon. Patient was seen on 01/08/2021 in the emergency room for epididymitis and is currently on antibiotics. 2 days ago he was evaluated via [employer] and was told he could have influenza or pneumonia. He states he has had a productive cough for the past 2 days. He states he gets very anxious whenever he is sick and believes today's chest pain is related to his anxiety. Patient denies any fever, chills, headache, change in vision, syncope or near syncope. Denies any back pain, shortness of breath, abdominal pain, nausea, vomiting, diarrhea, constipation or dysuria. Has not noted any blood in urine or stool. Patient has been eating and drinking appropriately. No recent travel or sick contacts. Review of systems: As per history of present illness and below otherwise all systems reviewed and negative. Past medical history: As per history of present illness and as reviewed below otherwise noncontributory. Surgical history: As per history of present illness and as reviewed below otherwise noncontributory. Social history: See social history for further information Family history: As per history of present illness and as reviewed below otherwise noncontributory. Physical exam: General: Well developed and well nourished 45-year-old male. Alert and orie ntated x 3. Nontoxic in appearance and in no acute distress. Vital signs are stable and have been reviewed by me. Nursing notes were reviewed. HEENT: Atraumatic, normocephalic, pupils equal and reactive bilaterally, negative for conjunctival pallor or scleral icterus, mucous membranes moist, TMs normal bilaterally, throat clear, neck supple, nontender, trachea midline. No drooling or trismus noted. No meningeal signs. No hot potato voice noted. Lungs: Clear to auscultation bilaterally. No wheezes, rales, or rhonchi. Chest nontender. Normal work of breathing, no accessory muscles used. Heart: S1S2, regular rate and rhythm without overt murmur, gallops, or rubs. No JVD. No peripheral edema Abdomen: Soft, nondistended, nontender. Normoactive bowel sounds. Negative for masses or costovertebral tenderness. Skin: Intact, warm, dry. No lesions or rashes noted. Hematologic: No petechiae or purpra. Mucosa appropriate color and normal nail bed color and refill. Extremities: Atraumatic, moves all extremities per self without difficulty or deficits, negative for cords or calf pain. Neurovascular unremarkable. Neuro: Awake, alert, oriented. Cranial nerves II through XII unremarkable. Cerebellum unremarkable. Motor and sensory unremarkable throughout. Exam nonfocal. Psychiatric: Mood and affect are appropriate. Normal thought process. Answering questions appropriately. Please note that the patient was seen and evaluated during the 2019 SARS-CoV-2 novel coronavirus pandemic period. Community viral transmission is ongoing at time of this encounter and the emergency department is operating under pandemic response procedures. Medical Decision Makin01/08/21: Patient was seen in the emergency room for testicular pain and was diagnosed with epididymitis. He was given an IM injection and 7-day course of doxycycline. Currently taking the doxycycline. Chest x-ray is unremarkable. EKG shows no acute or concerning findings. Lab work shows no significant findings. I did give him his home dose of Ativan, states he did not have it with him since he was at work. He does feel improvement. Given he is already on doxycycline for his epididymitis I am not can add any additional medications for his respiratory illness. This appears to be viral in nature. Have not heard him coughing and his lung sounds are clear. I have talked with the patient about today's findings, in addition to providing specific details for plan of care. Reassessment at the time of disposition demonstrates that the patient is in no acute distress. The patient is stable for discharge, counseling was provided and we discussed in great detail signs and symptoms that would prompt them to return to the Emergency Department. Medication, follow up and supportive care measures were reviewed and discussed. Voices understanding and is agreeable to plan of care. Denies any further questions or concerns at this time. Diagnostics: CBC, CMP, troponin, EKG, chest x-ray, COVID/influenza Therapeutics: None Prescription: None Impression: Anxiety related to health Viral upper respiratory illness Plan: 1. You were evaluated today on an emergent basis. Your work-up today is within normal limits. Symptoms are likely due to your anxiety. Negative COVID-19, influenza and chest x-ray. Keep taking the medications as are prescribed. 2. You can alternate Tylenol and ibuprofen as needed for pain and fever management. 3. We encourage you to follow up with your primary care provider and/or recommended specialist in the next few days for re-evaluation and further care/management. 4. If your symptoms should worsen, new symptoms develop or any of the signs and symptoms we discussed should arise please return to the emergency room or call 911 (if needed). Definitive disposition and diagnosis as appropriate pending reevaluation and review of above. - Related Data Allergies Allergy/AdvReac Type Severity Reaction Status Date / Time No Known Allergies Allergy Verified 01/13/21 15:45 Home Meds: Home Meds Gabapentin [Neurontin] 300 mg PO BID 06/08/13 [History] Doxylamine Succinate [Unisom Sleep Aid] 50 mg PO BEDTIME 08/15/14 [History] PARoxetine [Paxil] 10 mg PO DAILY 08/15/14 [History] Lisinopril [Prinivil] 40 mg PO DAILY 06/06/16 [History] Omeprazole 20 mg PO DAILY 10/26/17 [History] ALPRAZolam [Alprazolam ER] 0.5 mg PO ASDIRECTED PRN 07/31/18 [History] clonazePAM [Klonopin] 1 mg PO QAM 07/31/18 [History] amLODIPine Besylate [Amlodipine Besylate] 2.5 mg PO DAILY 10/06/19 [History] Cyclobenzaprine [Flexeril] 5 mg PO Q8H PRN #12 tab 03/16/20 [Rx] Ibuprofen [Motrin] 600 mg PO Q6H PRN #30 tab 03/16/20 [Rx] Doxycycline [Vibramycin] 100 mg PO BID #28 cap 01/08/21 [Rx] Past Medical History - Past Health History Medical/Surgical History: Denies Medical/Surgical History HEENT History: Reports: None Cardiovascular History: Reports: High Cholesterol, Hypertension Other Cardiovascular History: chest pain and SOB r/t anxiety Respiratory History: Reports: SOB Other Respiratory History: SOB r/t anxiety Gastrointestinal History: Reports: Chronic Diarrhea, GERD, Other (See Below) Other Gastrointestinal History: Bleeding from the rectum Genitourinary History: Reports: None Musculoskeletal History: Reports: Back Pain, Chronic, Fracture, Neck Pain, Chronic Other Musculoskeletal History: dislocation left elbow, Neurological History: Reports: Migraines Psychiatric History: Reports: Anxiety, Depression, Panic Attack, Psych Hospitalization(s), PTSD, Suicide Attempt Other Psychiatric History: "hypersensitivity to body" Endocrine/Metabolic History: Reports: None 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 Hematologic History: Reports: None Immunologic History: Reports: None Oncologic (Cancer) History: Reports: None Dermatologic History: Reports: None - Infectious Disease History Infectious Disease History: Reports: Measles - Past Surgical History Head Surgeries/Procedures: Reports: None HEENT Surgical History: Reports: Tonsillectomy Cardiovascular Surgical History: Reports: None Respiratory Surgical History: Reports: None GI Surgical History: Reports: None Neurological Surgical History: Reports: None Musculoskeletal Surgical History: Reports: Arthroscopic Knee Other Musculoskeletal Surgeries/Procedures:: left knee surgery, no plates Social & Family History - Family History Family Medical History: No Pertinent Family History - Caffeine Use Caffeine Use: Reports: Soda, Tea Caffeine Use Comment: 5 cups/day ED ROS GENERAL - Review of Systems Review Of Systems: Comprehensive ROS is negative, except as noted in HPI. ED EXAM, GENERAL - Physical Exam Exam: See Below (See dictation) Course - Vital Signs Last Recorded V/S: Last Vital Signs Temp 97.5 F 01/13/21 15:48 Pulse 98 01/13/21 15:48 Resp 12 01/13/21 15:48 BP 127/90 01/13/21 15:48 Pulse Ox 95 01/13/21 15:48 - Orders/Labs/Meds Orders: Active Orders 24 hr Category Date Time Status COMPREHENSIVE METABOLIC PN,CMP [CHEM] Stat Lab 01/13/21 15:44 Received TROPONIN I [CHEM] Stat Lab 01/13/21 15:44 Received Labs: Laboratory Tests 01/13/21 01/13/21 Range/Units 15:39 15:44 WBC 9.97 (4.0-11.0) K/uL RBC 4.89 (4.50-5.90) M/uL Hgb 14.6 (13.0-17.0) g/dL Hct 42.5 (38.0-50.0) % MCV 86.9 (80.0-98.0) fL MCH 29.9 (27.0-32.0) pg MCHC 34.4 (31.0-37.0) g/dL RDW Std Deviation 43.8 (28.0-62.0) fl RDW Coeff of [place] 14 (11.0-15.0) % Plt Count 246 (150-400) K/uL MPV 10.00 (7.40-12.00) fL Neut % (Auto) 53.2 (48.0-80.0) % Lymph % (Auto) 36.3 (16.0-40.0) % [place] % (Auto) 7.9 (0.0-15.0) % Eos % (Auto) 2.4 (0.0-7.0) % Baso % (Auto) 0.2 (0.0-1.5) % Neut # (Auto) 5.3 (1.4-5.7) K/uL Lymph # (Auto) 3.6 H (0.6-2.4) K/uL [place] # (Auto) 0.8 (0.0-0.8) K/uL Eos # (Auto) 0.2 (0.0-0.7) K/uL Baso # (Auto) 0.0 (0.0-0.1) K/uL Nucleated RBC % 0.0 /100WBC Nucleated RBCs # 0 K/uL Influenza Type A RNA NEGATIVE (NEGATIVE) Influenza Type B RNA NEGATIVE (NEGATIVE) SARS-CoV-2 RNA (JIGNESH) NEGATIVE (NEGATIVE) Meds: Medications Discontinued Medications Generic Name Dose Route Start Last Admin Trade Name Freq PRN Reason Stop Dose Admin Lorazepam 0.5 mg 01/13/21 15:36 01/13/21 15:55 Lorazepam 0.5 Mg Tab PO 01/13/21 15:37 0.5 mg ONETIME ONE Administration Departure - Departure Time of Disposition: 16:31 Disposition: Home, Self-Care 01 Clinical Impression: Anxiety about health, Viral URI Instructions: Viral Respiratory Infection, [id number] Referrals: Terrance Bailon DATA INTEGRATION ARCHITECT [Primary Care Provider] - Forms: ED Department Discharge Additional Instructions: The following information is given to patients seen in the emergency department who are being discharged to home. This information is to outline your options for follow-up care. We provide all patients seen in our emergency department with a follow-up referral. The need for follow-up, as well as the timing and circumstances, are variable depending upon the specifics of your emergency department visit. If you don't have a primary care physician on staff, we will provide you with a referral. We always advise you to contact your personal physician following an emergency department visit to inform them of the circumstance of the visit and for follow-up with them and/or the need for any referrals to a consulting specialist. The emergency department will also refer you to a specialist when appropriate. This referral assures that you have the opportunity for follow-up care with a specialist. All of these measure are taken in an effort to provide you with optimal care, which includes your follow-up. Under all circumstances we always encourage you to contact your private physician who remains a resource for coordinating your care. When calling for follow-up care, please make the office aware that this follow-up is from your recent emergency room visit. If for any reason you are refused follow-up, please contact the [facility] Emergency Department at and asked to speak to the emergency department charge nurse. [facility] [address] [place] [address] [place] [address] Thank you for choosing the [facility] emergency department in [facility] for your medical needs today. It was a pleasure caring for you. Today you were seen in the emergency department for chest pain and cough. 1. You were evaluated today on an emergent basis. Your work-up today is within normal limits. Symptoms are likely due to your anxiety. Negative COVID-19, influenza and chest x-ray. Keep taking the medications as are prescribed. 2. You can alternate Tylenol and ibuprofen as needed for pain and fever management. 3. We encourage you to follow up with your primary care provider and/or recommended specialist in the next few days for re-evaluation and further care/management. 4. If your symptoms should worsen, new symptoms develop or any of the signs and symptoms we discussed should arise please return to the emergency room or call 911 (if needed). Sepsis Event Note (ED) - Focused Exam Vital Signs: Vital Signs Temp Pulse Resp BP Pulse Ox 01/13/21 15:48 97.5 F 98 12 127/90 95 - My Orders Last 24 Hours: My Active Orders 01/13/21 15:44 COMPREHENSIVE METABOLIC PN,CMP [CHEM] Stat TROPONIN I [CHEM] Stat - Assessment/Plan Last 24 Hours: My Active Orders 01/13/21 15:44 COMPREHENSIVE METABOLIC PN,CMP [CHEM] Stat TROPONIN I [CHEM] Stat
[2021-01-13] MEDS ORDERED: LORazepam 0.5 MG Tab PO ONE (15:36)
--- NOTE | 2021-01-13 15:45 | PCM.EKG ---
#1 Interpretation EKG Date: 01/13/21 Time: 15:39 Rhythm: NSR Rate (Beats/Min): 96 [place]: Normal P-Wave: Present QRS: Normal ST-T: Normal QT: Normal CA/PQ Interval: 151 Comparison: NA - No Prior EKG EKG Interpretation Comments: normal EKG
--- NOTE | 2021-01-13 16:06 | CR ---
HISTORY: Chest pain COMPARISON: Chest two views from 11/19/2019 FINDINGS: A portable erect AP view of the chest was obtained at 15 46 hours. The lungs remain clear. No focal or diffuse infiltrates are present. The heart remains normal in size. The mediastinum is normal in appearance. The osseous structures are normal in appearance for the patient`s age. IMPRESSION: Normal portable chest single view. Dictated by Arya Hua MD @ 01/13/2021 4:04:07 PM (Electronically Signed)
[2021-01-13 16:24] LABS: CORONAVIRUS COVID-19 NAA NEGATIVE (NEGATIVE); INFLUENZA A NAA NEGATIVE (NEGATIVE); INFLUENZA B NAA NEGATIVE (NEGATIVE)
[2021-01-13 16:30] LABS: BLOOD UREA NITROGEN,BUN 18 mg/dL (7.0-18.0); CARBON DIOXIDE,CO2 25.6 mmol/L (21.0-32.0); CHLORIDE,CL 106 mmol/L (98-107); GLUCOSE RANDOM 101 mg/dL (74-106); POTASSIUM,K 3.6 mmol/L (3.5-5.1); SODIUM,NA 141 mmol/L (136-148)
[2021-01-13 16:45] VITALS: BP 111/83; PULSE 79
== END 2021-01-13 16:46 | disposition home or self-care (01) ==
LOC: MW.ED 15:23
DX: J06.9 Acute upper respiratory infection, unspecified (principal); F41.9 Anxiety disorder, unspecified; I10 Essential (primary) hypertension; K21.9 Gastro-esophageal reflux disease without esophagitis; Z20.822 Contact with and (suspected) exposure to COVID-19; Z79.899 Other long term (current) drug therapy
CPT/HCPCS: 0240U; 36415; 71045; 80053; 84484; 85025; 93005; 99285; A9270

== ENCOUNTER 2021-01-20 18:09 | Emergency (ER) | payer OTHER ==
[2021-01-20] MEDS ORDERED: Orphenadrine 60 MG/2 ML Inj IM ONE (18:29)
[2021-01-20] MEDS ORDERED: Ketorolac 60 MG/2 ML SDV IM ONE (18:30)
--- NOTE | 2021-01-20 18:31 | EDM.PDOC ---
ED HPI GENERAL MEDICAL PROBLEM - General Chief Complaint: Neck Problem Stated Complaint: NECK PAIN, NAUSEA, DIZZINESS Time Seen by Provider: 01/20/21 18:25 Source of Information: Reports: Patient History Limitations: Reports: No Limitations - History of Present Illness INITIAL COMMENTS - FREE TEXT/NARRATIVE: HISTORY AND PHYSICAL: History of present illness: Patient is a 45-year-old male who is well-known to our emergency room for chronic chest pain, anxiety and hypertension. Patient states while at work his chronic neck pain was not alleviated with his usual [id number] medication. He took some Excedrin migraine. Patient reports when his pain is unmanaged he has increased anxiety and when his anxiety is increased he feels dizzy. Patient does not have any of his home medications since he is at work. He decided to come to the emergency room for evaluation. He denies any new injury, trauma or falls. He states the symptoms he is experiencing is not new or unusual and is "chronic". Pain is worse with movement. Patient denies any fever, chills, headache, change in vision, syncope or near syncope. Denies any chest pain, back pain, shortness of breath or cough. Denies any GI or symptoms. Denies any numbness, tingling, saddle paresthesia or weakness. No recent travel or sick contacts. Review of systems: As per history of present illness and below otherwise all systems reviewed and negative. Past medical history: As per history of present illness and as reviewed below otherwise noncontributory. Surgical history: As per history of present illness and as reviewed below otherwise noncontributory. Social history: See social history for further information Family history: As per history of present illness and as reviewed below otherwise noncontributory. Physical exam: General: Well developed and well nourished. Alert and orientated x 3. Nontoxic in appearance and in no acute distress. Vital signs are stable and have been reviewed by me. Nursing notes were reviewed. HEENT: Atraumatic, normocephalic, pupils equal and reactive bilaterally, negative for conjunctival pallor or scleral icterus, mucous membranes moist, TMs normal bilaterally, throat clear, neck supple, nontender, trachea midline. No drooling or trismus noted. No meningeal signs. No hot potato voice noted. Lungs: Clear to auscultation bilaterally. No wheezes, rales, or rhonchi. Chest nontender. Normal work of breathing, no accessory muscles used. Heart: S1S2, regular rate and rhythm without overt murmur, gallops, or rubs. No JVD. No peripheral edema Abdomen: Soft, nondistended, nontender. C-spine/Back: No pinpoint vertebral tenderness upon palpation. No crepitus, step-offs or obvious deformities. Muscular neck pain on the left trapezius. Patient is ambulatory into the emergency room without difficulty or deficit. Able to rock back on heels and walk on toes. Denies any urinary or fecal incontinence. Denies any numbness, tingling or saddle paresthesia. No concerns of serious infection, fracture or cord compression, or cauda equina syndrome. Deep tendon reflexes brisk bilaterally. Skin: Intact, warm, dry. No lesions or rashes noted. Hematologic: No petechiae or purpra. Mucosa appropriate color and normal nail bed color and refill. Extremities: Atraumatic, moves all extremities per self without difficulty or deficits, negative for cords or calf pain. Neurovascular unremarkable. Neuro: Awake, alert, oriented. Cranial nerves II through XII unremarkable. Cerebellum unremarkable. Motor and sensory unremarkable throughout. Exam nonfocal. Psychiatric: Mood and affect are appropriate. Normal thought process. Answering questions appropriately. Please note that the patient was seen and evaluated during the 2019 SARS-CoV-2 novel coronavirus pandemic period. Community viral transmission is ongoing at time of this encounter and the emergency department is operating under pandemic response procedures. Medical Decision Making: Patient declines wanting any diagnostics at this time. We will give him IM Toradol and Norflex and reevaluate. Patient's pain has improved. He does have home medications in which he can take for his anxiety. Told him I did not feel comfortable giving both a muscle relaxer and Ativan. I have talked with the patient about today's findings, in addition to providing specific details for plan of care. Reassessment at the time of disposition demonstrates that the patient is in no acute distress. The patient is stable for discharge, counseling was provided and we discussed in great detail signs and symptoms that would prompt them to return to the Emergency Department. Medication, follow up and supportive care measures were reviewed and discussed. Voices understanding and is agreeable to plan of care. Denies any further questions or concerns at this time. Diagnostics: None Therapeutics: Toradol IM, Norflex Impression: Anxiety Chronic neck pain Plan: 1. The medication you received today does cause drowsiness, so do not drive for the remaining day 2. Limit your immobility to prevent muscle stiffness. Get up to ambulate/move around/gentle stretching multiple times throughout the day. May alternate heat and ice to the painful areas 3. Tylenol as needed for back pain. Otherwise take the prescribed Flexeril and Ibuprofen as directed. Flexeril as a muscle relaxant, this medication may cause drowsiness a do not take it will driving her needing to be functioning outside of the house. 4. Please follow-up with your primary care provider as we discussed. Return to the ED as needed and as discussed. Definitive disposition and diagnosis as appropriate pending reevaluation and review of above. Bilateral Neck Pain Score (Numeric/FACES): 9 - Related Data Allergies Allergy/AdvReac Type Severity Reaction Status Date / Time No Known Allergies Allergy Verified 01/21/21 00:28 Home Meds: Home Meds Gabapentin [Neurontin] 300 mg PO BID 06/08/13 [History] Doxylamine Succinate [Unisom Sleep Aid] 50 mg PO BEDTIME 08/15/14 [History] PARoxetine [Paxil] 10 mg PO DAILY 08/15/14 [History] Lisinopril [Prinivil] 40 mg PO DAILY 06/06/16 [History] Omeprazole 20 mg PO DAILY 10/26/17 [History] ALPRAZolam [Alprazolam ER] 0.5 mg PO ASDIRECTED PRN 07/31/18 [History] clonazePAM [Klonopin] 1 mg PO QAM 07/31/18 [History] amLODIPine Besylate [Amlodipine Besylate] 2.5 mg PO DAILY 10/06/19 [History] Cyclobenzaprine [Flexeril] 5 mg PO Q8H PRN #12 tab 03/16/20 [Rx] Ibuprofen [Motrin] 600 mg PO Q6H PRN #30 tab 03/16/20 [Rx] Doxycycline [Vibramycin] 100 mg PO BID #28 cap 01/08/21 [Rx] Cyclobenzaprine [Flexeril] 10 mg PO TID PRN #15 tab 01/20/21 [Rx] predniSONE [Prednisone] 40 mg PO DAILY 4 Days #8 tablet 01/20/21 [Rx] Past Medical History - Past Health History Medical/Surgical History: Denies Medical/Surgical History HEENT History: Reports: None Cardiovascular History: Reports: High Cholesterol, Hypertension Other Cardiovascular History: chest pain and SOB r/t anxiety Respiratory History: Reports: SOB Other Respiratory History: SOB r/t anxiety Gastrointestinal History: Reports: Chronic Diarrhea, GERD, Other (See Below) Other Gastrointestinal History: Bleeding from the rectum Genitourinary History: Reports: None Musculoskeletal History: Reports: Back Pain, Chronic, Fracture, Neck Pain, Chronic Other Musculoskeletal History: dislocation left elbow, Neurological History: Reports: Migraines Psychiatric History: Reports: Anxiety, Depression, Panic Attack, Psych Hospitalization(s), PTSD, Suicide Attempt Other Psychiatric History: "hypersensitivity to body" Endocrine/Metabolic History: Reports: None Insulin Pump Model and Application Spec: N/A Hematologic History: Reports: None Immunologic History: Reports: None Oncologic (Cancer) History: Reports: None Dermatologic History: Reports: None - Infectious Disease History Infectious Disease History: Reports: Measles - Past Surgical History Head Surgeries/Procedures: Reports: None HEENT Surgical History: Reports: Tonsillectomy Cardiovascular Surgical History: Reports: None Respiratory Surgical History: Reports: None GI Surgical History: Reports: None Neurological Surgical History: Reports: None Musculoskeletal Surgical History: Reports: Arthroscopic Knee Other Musculoskeletal Surgeries/Procedures:: left knee surgery, no plates Social & Family History - Family History Family Medical History: No Pertinent Family History - Tobacco Use Tobacco Use Status *Q: Current Every Day Tobacco User Years of Tobacco use: 28 Packs/Tins Daily: 1 - Caffeine Use Caffeine Use: Reports: Soda, Tea Caffeine Use Comment: 5 cups/day - Recreational Drug Use Recreational Drug Use: No ED ROS GENERAL - Review of Systems Review Of Systems: Comprehensive ROS is negative, except as noted in HPI. ED EXAM, HEAD INJURY - Physical Exam Exam: See Below (See dictation) Course - Vital Signs Last Recorded V/S: Last Vital Signs Temp 98.1 F 01/20/21 18:21 Pulse 75 01/20/21 20:07 Resp 16 01/20/21 20:07 BP 128/84 01/20/21 20:07 Pulse Ox 97 01/20/21 20:07 - Orders/Labs/Meds Meds: Medications Discontinued Medications Generic Name Dose Route Start Last Admin Trade Name Freq PRN Reason Stop Dose Admin Ketorolac Tromethamine 60 mg 12/01/21 18:30 01/20/21 19:01 Ketorolac 60 Mg/2 Ml Sdv IM 01/20/21 18:31 60 mg ONETIME ONE Administration Orphenadrine Citrate 60 mg 01/20/21 18:29 01/20/21 19:00 Orphenadrine 60 Mg/2 Ml Inj IM 01/20/21 18:30 60 mg ONETIME ONE Administration Prednisone 40 mg 01/20/21 19:54 01/20/21 20:02 Prednisone 20 Mg Tab PO 01/20/21 19:55 40 mg ONETIME ONE Administration Departure - Departure Time of Disposition: 19:57 Disposition: Home, Self-Care 01 Clinical Impression: Chronic neck pain, Anxiety - Discharge Information Prescriptions: Cyclobenzaprine [Flexeril] 10 mg PO TID PRN #15 tab PRN Reason: Muscle Spasm predniSONE [Prednisone] 40 mg PO DAILY 4 Days #8 tablet Instructions: Cervical Sprain, [id number] Referrals: Terrance Bailon [facility] [Primary Care Provider] - Forms: ED Department Discharge Additional Instructions: The following information is given to patients seen in the emergency department who are being discharged to home. This information is to outline your options for follow-up care. We provide all patients seen in our emergency department with a follow-up referral. The need for follow-up, as well as the timing and circumstances, are variable depending upon the specifics of your emergency department visit. If you don't have a primary care physician on staff, we will provide you with a referral. We always advise you to contact your personal physician following an emergency department visit to inform them of the circumstance of the visit and for follow-up with them and/or the need for any referrals to a consulting specialist. The emergency department will also refer you to a specialist when appropriate. This referral assures that you have the opportunity for follow-up care with a specialist. All of these measure are taken in an effort to provide you with optimal care, which includes your follow-up. Under all circumstances we always encourage you to contact your private physician who remains a resource for coordinating your care. When calling for follow-up care, please make the office aware that this follow-up is from your recent emergency room visit. If for any reason you are refused follow-up, please contact the [facility] at and asked to speak to the emergency department charge nurse. [facility] [address] [place] [address] [facility] [address] [place] [address] Thank you for choosing the [facility] emergency department in [place] for your medical needs today. It was a pleasure caring for you. Today you were seen in the emergency department for neck pain Your [place] was electronically sent to: [place] [facility] 1. The medication you received today does cause drowsiness, so do not drive for the remaining day 2. Limit your immobility to prevent muscle stiffness. Get up to ambulate/move around/gentle stretching multiple times throughout the day. May alternate heat and ice to the painful areas 3. Tylenol as needed for back pain. Otherwise take the prescribed Flexeril and Ibuprofen as directed. Flexeril as a muscle relaxant, this medication may cause drowsiness a do not take it will driving her needing to be functioning outside of the house. 4. Please follow-up with your primary care provider as we discussed. Return to the ED as needed and as discussed. Sepsis Event Note (ED) - Evaluation Sepsis Screening Result: No Definite Risk
[2021-01-20] MEDS ORDERED: predniSONE 20 MG Tab PO ONE (19:54)
[2021-01-20 20:08] VITALS: BP 128/84; PULSE 75
== END 2021-01-20 20:05 | disposition home or self-care (01) ==
LOC: MW.ED 18:09
DX: F41.9 Anxiety disorder, unspecified (principal); G89.29 Other chronic pain; M54.2 Cervicalgia; I10 Essential (primary) hypertension; K21.9 Gastro-esophageal reflux disease without esophagitis; Z72.0 Tobacco use; Z79.899 Other long term (current) drug therapy
CPT/HCPCS: 96372; 99283; A9270; J1885; J2360

== ENCOUNTER 2021-01-21 00:09 | Emergency (ER) | payer OTHER ==
[2021-01-21] MEDS ORDERED: diphenhydrAMINE 50 MG/ML SDV IM ONE (01:12)
[2021-01-21] MEDS ORDERED: Prochlorperazine 10 MG/2 ML SDV IM ONE (01:12)
[2021-01-21] MEDS ORDERED: Ketorolac 15 MG/ML SDV IM ONE (01:12)
[2021-01-21] MEDS ORDERED: Haloperidol Lactate 5 MG/ML SDV IM ONE (01:14)
--- NOTE | 2021-01-21 02:33 | EDM.PDOC ---
ED HPI GENERAL MEDICAL PROBLEM - General Chief Complaint: Headache Stated Complaint: HEAD HURTS Time Seen by Provider: 01/21/21 00:25 - History of Present Illness INITIAL COMMENTS - FREE TEXT/NARRATIVE: CHIEF COMPLAINT(S): "My neck." HISTORY OF PRESENT ILLNESS: This is a 45-year-old man with a past medical history of chronic neck pain who comes to the emergency department with a chief complaint of "my neck." The patient states that he has had several CTs, MRIs and 2 recent cortisone injections and evaluation by a chiropractor however he has had continued neck pain which he describes as muscle spasms and rates them as 10 out of 10 prior to arrival. He states that this is been going on for years and they prescribed him physical therapy and all kinds of crap. He states that he took 2 Excedrin at around 4 PM and that did not help. He states that he was evaluated here in the emergency department and given some type of medication however he continues to have pain. He states that he feels like it is a vicious cycle where he gets anxiety and then his neck pain tightens and worsens. He states that he took lorazepam and his pain has since improved. He states that he is very hypersensitive and describes the pain as 7-8 and muscle tension. He states that he has all the medications at home however he is too scared to take anything else. He states that he could take OxyContin if he wanted an additional tablets however he does not like taking medications. He states that every time his pain worsens he always comes to the emergency department. He denies any fever, chills, neck stiffness, blurry vision, double vision, headache, loss of vision. He denies any head injury or neck injury. Pain is exacerbated by movement. There are no relieving factors. REVIEW OF SYSTEMS: Constitutional: Denies fever, chills. Eyes: Denies eye pain Ears, Nose, Mouth, & Throat: Denies earache Cardiovascular: Denies chest pain Respiratory: Denies shortness of breath Gastrointestinal: Denies Nausea, vomiting, diarrhea, hematochezia. Genitourinary: Denies hematuria Skin:Denies a rash MSK: Positive for neck pain Neurological: Denies blurred vision, numbness, tingling, weakness Psychiatric: Denies depression PAST MEDICAL HISTORY: As per history of present illness and as reviewed below otherwise noncontributory. SURGICAL HISTORY: As per history of present illness and as reviewed below otherwise noncontributory. SOCIAL HISTORY: As per history of present illness and as reviewed below otherwise noncontributory. FAMILY HISTORY: As per history of present illness and as reviewed below otherwise noncontributory. EXAMINATION OF ORGAN SYSTEMS/BODY AREAS: Constitutional: Blood pressure is 138/93, heart rate 97, respiratory rate 17 with an oxygen saturation 96% on room air. Temperature 36.8 General: Anxious appearing man who is otherwise in no acute distress Psychiatric: Appropriate mood and affect. Eyes: No scleral icterus or conjunctival erythema ENMT: Moist mucous membranes. No pharyngeal erythema neck was supple and nontender. Cardiovascular: Regular, rate, and rhythm. No gallops, murmurs, or rubs. Bilateral upper extremity pulses symmetric and intact. No peripheral edema. No JVD. Respiratory: Lungs clear to auscultation bilaterally. No wheezes, rales, or rhonchi. Gastrointestinal: Soft, non-tender, non-distended. Normoactive bowel sounds Genitourinary: No suprapubic tenderness Musculoskeletal: There is no midline cervical, thoracic tenderness. There is left paracervical muscle tenderness and tension. Skin: No lesions or abrasions. Neurological: Alert, GCS 15 strength and sensation grossly intact in upper and lower extremities bilaterally. No meningeal signs MEDICAL DECISION MAKING AND COURSE IN THE ED WITH INTERPRETATION/REVIEW OF DIAGNOSTIC STUDIES: This is a 45-year-old man with a complex past medical history and chronic neck pain who comes to the emergency department with acute on chronic neck pain with no red flag symptoms. At this time we will trial Haldol and Benadryl given that the patient has been having difficulty with pain control. The patient was amenable to this plan. I did review the patient's chart. The patient has had MRI and CT all of which were normal. We will not need any further imaging at this time. On reevaluation patient's pain had significantly improved to 2 out of 10. I did encourage the patient at this time to follow-up with his primary care physician and possible pain specialist given the duration of the patient's symptoms. He was given strict return precautions. The patient was amenable to discharge and had no further questions DISPOSITION: The patient was discharged home in stable condition. The patient will follow up with primary care physician in 3 to 5 days CONDITION: Fair PROCEDURES: None FINAL IMPRESSION(S)/DIAGNOSES: 1. Acute on chronic neck pain Natalio Boudreaux M.D. Bilateral Neck Pain Score (Numeric/FACES): 8 - Related Data Allergies Allergy/AdvReac Type Severity Reaction Status Date / Time No Known Allergies Allergy Verified 01/21/21 00:28 Home Meds: Home Meds Gabapentin [Neurontin] 300 mg PO BID 06/08/13 [History] Doxylamine Succinate [Unisom Sleep Aid] 50 mg PO BEDTIME 08/15/14 [History] PARoxetine [Paxil] 10 mg PO DAILY 08/15/14 [History] Lisinopril [Prinivil] 40 mg PO DAILY 06/06/16 [History] Omeprazole 20 mg PO DAILY 10/26/17 [History] ALPRAZolam [Alprazolam ER] 0.5 mg PO ASDIRECTED PRN 07/31/18 [History] clonazePAM [Klonopin] 1 mg PO QAM 07/31/18 [History] amLODIPine Besylate [Amlodipine Besylate] 2.5 mg PO DAILY 10/06/19 [History] Cyclobenzaprine [Flexeril] 5 mg PO Q8H PRN #12 tab 03/16/20 [Rx] Ibuprofen [Motrin] 600 mg PO Q6H PRN #30 tab 03/16/20 [Rx] Doxycycline [Vibramycin] 100 mg PO BID #28 cap 01/08/21 [Rx] Cyclobenzaprine [Flexeril] 10 mg PO TID PRN #15 tab 01/20/21 [Rx] predniSONE [Prednisone] 40 mg PO DAILY 4 Days #8 tablet 01/20/21 [Rx] Past Medical History - Past Health History Medical/Surgical History: Denies Medical/Surgical History HEENT History: Reports: None Cardiovascular History: Reports: High Cholesterol, Hypertension Other Cardiovascular History: chest pain and SOB r/t anxiety Respiratory History: Reports: SOB Other Respiratory History: SOB r/t anxiety Gastrointestinal History: Reports: Chronic Diarrhea, GERD, Other (See Below) Other Gastrointestinal History: Bleeding from the rectum Genitourinary History: Reports: None Musculoskeletal History: Reports: Back Pain, Chronic, Fracture, Neck Pain, Chronic Other Musculoskeletal History: dislocation left elbow, Neurological History: Reports: Migraines Psychiatric History: Reports: Anxiety, Depression, Panic Attack, Psych Hospitalization(s), PTSD, Suicide Attempt Other Psychiatric History: "hypersensitivity to body" Endocrine/Metabolic History: Reports: None Insulin Pump Model and Computing Architect: N/A Hematologic History: Reports: None Immunologic History: Reports: None Oncologic (Cancer) History: Reports: None Dermatologic History: Reports: None - Infectious Disease History Infectious Disease History: Reports: Measles - Past Surgical History Head Surgeries/Procedures: Reports: None HEENT Surgical History: Reports: Tonsillectomy Cardiovascular Surgical History: Reports: None Respiratory Surgical History: Reports: None GI Surgical History: Reports: None Neurological Surgical History: Reports: None Musculoskeletal Surgical History: Reports: Arthroscopic Knee Other Musculoskeletal Surgeries/Procedures:: left knee surgery, no plates Social & Family History - Family History Family Medical History: No Pertinent Family History - Tobacco Use Tobacco Use Status *Q: Current Every Day Tobacco User Years of Tobacco use: 28 Packs/Tins Daily: 1 - Caffeine Use Caffeine Use: Reports: Soda, Tea Caffeine Use Comment: 5 cups/day - Recreational Drug Use Recreational Drug Use: No ED ROS GENERAL - Review of Systems Review Of Systems: See Below ED EXAM, GENERAL - Physical Exam Exam: See Below Course - Vital Signs Last Recorded V/S: Last Vital Signs Temp 36.1 C 01/21/21 02:29 Pulse 88 01/21/21 02:29 Resp 20 01/21/21 02:29 BP 108/76 01/21/21 02:29 Pulse Ox 97 01/21/21 02:29 - Orders/Labs/Meds Labs: Laboratory Tests 01/21/21 Range/Units 02:25 POC Glucose 143 H (70-99) mg/dL Meds: Medications Discontinued Medications Generic Name Dose Route Start Last Admin Trade Name Barringtonq PRN Reason Stop Dose Admin Diphenhydramine HCl 50 mg 01/21/21 01:12 01/21/21 01:22 Diphenhydramine 50 Mg/Ml Sdv IM 01/21/21 01:13 50 mg ONETIME ONE Administration Haloperidol Lactate 2.5 mg 01/21/21 01:14 01/21/21 01:23 Haloperidol Lactate 5 Mg/Ml Sdv IM 01/21/21 01:15 2.5 mg ONETIME ONE Administration Ketorolac Tromethamine 30 mg 01/21/21 01:12 01/21/21 01:32 Ketorolac 15 Mg/Ml Sdv IM 01/21/21 01:13 Not Given ONETIME ONE Prochlorperazine Edisylate 2.5 mg 01/21/21 01:12 01/21/21 01:32 Prochlorperazine 10 Mg/2 Ml Sdv IM 01/21/21 01:13 Not Given ONETIME ONE Departure - Departure Time of Disposition: 02:31 Disposition: Home, Self-Care 01 Condition: Fair Clinical Impression: Cervicalgia - Discharge Information *PRESCRIPTION DRUG MONITORING PROGRAM REVIEWED*: No *COPY OF PRESCRIPTION DRUG MONITORING REPORT IN PATIENT ELMO: No Instructions: Cervical Sprain Referrals: PCP,None [Primary Care Provider] - Forms: ED Department Discharge Additional Instructions: You were evaluated today on an emergent basis. I do believe your neck pain is likely multifactorial secondary to your anxiety. As discussed I recommend that you follow-up with your primary care physician for possible referral to a specialist. If you have any worsening symptoms please return to the emergency department. Please use your medications as prescribed. [facility] - Primary Care [address] [place] [address] [place] [address] The patient is informed of any results of their evaluation and diagnostic workup and all questions are answered. They are given discharge instructions and return precautions. The patient is stable for discharge. The patient states they understand and agree with the plan and that they will return if their symptoms get worse or if they have any new concerns. The following information is given to patients seen in the emergency department who are being discharged to home. This information is to outline your options for follow-up care. We provide all patients seen in our emergency department with a follow-up referral. The need for follow-up, as well as the timing and circumstances, are variable depending upon the specifics of your emergency department visit. If you don't have a primary care physician on staff, we will provide you with a referral. We always advise you to contact your personal physician following an emergency department visit to inform them of the circumstance of the visit and for follow-up with them and/or the need for any referrals to a consulting specialist. The emergency department will also refer you to a specialist when appropriate. This referral assures that you have the opportunity for follow-up care with a specialist. All of these measure are taken in an effort to provide you with optimal care, which includes your follow-up. Under all circumstances we always encourage you to contact your private physician who remains a resource for coordinating your care. When calling for follow-up care, please make the office aware that this follow-up is from your recent emergency room visit. If for any reason you are refused follow-up, please contact the [facility] Emergency Department at and asked to speak to the emergency department charge nurse. Sepsis Event Note (ED) - Evaluation Sepsis Screening Result: No Definite Risk - Focused Exam Vital Signs: Vital Signs Temp Pulse Resp BP Pulse Ox 01/21/21 02:29 36.1 C 88 20 108/76 97 01/21/21 00:28 36.8 C 97 17 138/93 H 96
[2021-01-21 02:37] VITALS: BP 108/76; PULSE 88
== END 2021-01-21 02:39 | disposition home or self-care (01) ==
LOC: MW.ED 00:09
DX: G89.29 Other chronic pain (principal); M54.2 Cervicalgia; E78.00 Pure hypercholesterolemia, unspecified; I10 Essential (primary) hypertension; K21.9 Gastro-esophageal reflux disease without esophagitis; Z79.899 Other long term (current) drug therapy; Z72.0 Tobacco use
CPT/HCPCS: 82947; 96372; 99283; J1200; J1630

== ENCOUNTER 2021-02-05 02:19 | Emergency (ER) | payer OTHER ==
[2021-02-05] MEDS ORDERED: Dexamethasone 10 MG/ML SDV IM STA (02:48)
[2021-02-05] MEDS ORDERED: Diazepam 5 MG Tab PO ONE (02:48)
--- NOTE | 2021-02-05 02:52 | EDM.PDOC ---
ED HPI GENERAL MEDICAL PROBLEM - General Chief Complaint: Neck Problem Stated Complaint: NECK PAIN Time Seen by Provider: 02/05/21 02:36 - History of Present Illness INITIAL COMMENTS - FREE TEXT/NARRATIVE: History of present illness: [] Patient has chronic neck pain tonight he says he has spasm. He has prescribed medications but he has multiple medications including clonazepam for anxiety, Flexeril for spasm, gabapentin, oxycodone, the patient not taking all of these medicines because he thinks taking them all at once might be bad for him. He says his pain is worse today. He has been told it is muscle spasm. He has had steroid injections in his neck that did not work. He is never had an adverse effect or response to steroids. The patient has an appointment soon to see [facility]. He has had an MRI in 1989 in October that showed that he had no discogenic disc disease or spinal or nerve encroachment. Review of systems: As per history of present illness and below otherwise all systems reviewed and negative. Past medical history: As per history of present illness and as reviewed below otherwise noncontributory. Surgical history: As per history of present illness and as reviewed below otherwise non contributory. Social history: No reported history of drug or alcohol abuse. Family history: As per history of present illness and as reviewed below otherwise noncontributory. Physical exam: Constitutional - well developed, well-nourished and in no acute distress HEENT - normocephalic, no evidence of trauma - external nose and mouth normal - no mass in neck and no JVD - mucosae moist EYES - full EOM, PERRL, no icterus - no evidence of inflammation, injection, or drainage Respiratory - no respiratory distress, equal bilateral expansion, lungs clear to auscultation and no abnormal lung sounds Cardiovascular - Regular Rhythm with S1 and S2 appreciated and no murmur, gallop or rub. GI - abdomen soft without distension or organomegaly - normal bowel sounds - no guard or rebound Musculoskeletal no gross deformity of long bones or joints - no tenderness, swelling or edema Neurologic - Alert and oriented times four - CN II-XII grossly intact - motor sensory and coordination symmetrically normal Psychiatric - appropriate mood and affect with normal thought content Hematologic - No petechiae or purpura - mucosa appropriate color and sclera not pale - normal nail bed color and refill Integument - no rash or evidence of trauma - normal turgor Diagnostics: [] Therapeutics: [] Impression: [] Plan: [] Definitive disposition and diagnosis as appropriate pending reevaluation and review of above. neck Pain Score (Numeric/FACES): 7 - Related Data Allergies Allergy/AdvReac Type Severity Reaction Status Date / Time No Known Allergies Allergy Verified 02/05/21 02:34 Home Meds: Home Meds Gabapentin [Neurontin] 300 mg PO BID 06/08/13 [History] Doxylamine Succinate [Unisom Sleep Aid] 50 mg PO BEDTIME 08/15/14 [History] PARoxetine [Paxil] 10 mg PO DAILY 08/15/14 [History] Lisinopril [Prinivil] 40 mg PO DAILY 06/06/16 [History] Omeprazole 20 mg PO DAILY 10/26/17 [History] ALPRAZolam [Alprazolam ER] 0.5 mg PO ASDIRECTED PRN 07/31/18 [History] clonazePAM [Klonopin] 1 mg PO QAM 07/31/18 [History] amLODIPine Besylate [Amlodipine Besylate] 2.5 mg PO DAILY 10/06/19 [History] Cyclobenzaprine [Flexeril] 5 mg PO Q8H PRN #12 tab 03/16/20 [Rx] Ibuprofen [Motrin] 600 mg PO Q6H PRN #30 tab 03/16/20 [Rx] Doxycycline [Vibramycin] 100 mg PO BID #28 cap 01/08/21 [Rx] Cyclobenzaprine [Flexeril] 10 mg PO TID PRN #15 tab 01/20/21 [Rx] predniSONE [Prednisone] 40 mg PO DAILY 4 Days #8 tablet 01/20/21 [Rx] Past Medical History - Past Health History Medical/Surgical History: Denies Medical/Surgical History HEENT History: Reports: None Cardiovascular History: Reports: High Cholesterol, Hypertension Other Cardiovascular History: chest pain and SOB r/t anxiety Respiratory History: Reports: SOB Other Respiratory History: SOB r/t anxiety Gastrointestinal History: Reports: Chronic Diarrhea, GERD, Other (See Below) Other Gastrointestinal History: Bleeding from the rectum Genitourinary History: Reports: None Musculoskeletal History: Reports: Back Pain, Chronic, Fracture, Neck Pain, Chronic Other Musculoskeletal History: dislocation left elbow, Neurological History: Reports: Migraines Psychiatric History: Reports: Anxiety, Depression, Panic Attack, Psych Hospitalization(s), PTSD, Suicide Attempt Other Psychiatric History: "hypersensitivity to body" Endocrine/Metabolic History: Reports: None Insulin Pump Model and Policy Issue Clerk: N/A Hematologic History: Reports: None Immunologic History: Reports: None Oncologic (Cancer) History: Reports: None Dermatologic History: Reports: None - Infectious Disease History Infectious Disease History: Reports: Measles - Past Surgical History Head Surgeries/Procedures: Reports: None HEENT Surgical History: Reports: Tonsillectomy Cardiovascular Surgical History: Reports: None Respiratory Surgical History: Reports: None GI Surgical History: Reports: None Neurological Surgical History: Reports: None Musculoskeletal Surgical History: Reports: Arthroscopic Knee Other Musculoskeletal Surgeries/Procedures:: left knee surgery, no plates Social & Family History - Family History Family Medical History: No Pertinent Family History - Tobacco Use Tobacco Use Status *Q: Never Tobacco User - Caffeine Use Caffeine Use: Reports: None Caffeine Use Comment: 5 cups/day - Recreational Drug Use Recreational Drug Use: No ED ROS GENERAL - Review of Systems Review Of Systems: Comprehensive ROS is negative, except as noted in HPI. ED EXAM, GENERAL - Physical Exam Exam: See Below Free Text/Narrative:: My physical exam is in the HPI Course - Vital Signs Last Recorded V/S: Last Vital Signs Temp 36.6 C 02/05/21 02:35 Pulse 82 02/05/21 02:35 Resp 18 02/05/21 02:35 BP 147/106 H 02/05/21 02:35 Pulse Ox 97 02/05/21 02:35 - Orders/Labs/Meds Meds: Medications Discontinued Medications Generic Name Dose Route Start Last Admin Trade Name Masoud PRN Reason Stop Dose Admin Dexamethasone 10 mg 02/05/21 02:48 02/05/21 02:56 Dexamethasone 10 Mg/Ml Sdv IM 02/05/21 02:49 10 mg STAT STA Administration Diazepam 5 mg 02/05/21 02:48 02/05/21 02:56 Diazepam 5 Mg Tab PO 02/05/21 02:49 5 mg ONETIME ONE Administration Departure - Departure Time of Disposition: 02:58 Disposition: Home, Self-Care 01 Condition: Good Clinical Impression: Chronic neck pain - Discharge Information Instructions: Managing Chronic Back Pain Forms: ED Department Discharge Additional Instructions: Contact the [place] for your or your doctor date. [facility] - [facility] [address] [place], [place] [address], [place] [address] [facility] [address] [place] [address] The following information is given to patients seen in the emergency department who are being discharged to home. This information is to outline your options for follow-up care. We provide all patients seen in our emergency department with a follow-up referral. The need for follow-up, as well as the timing and circumstances, are variable depending upon the specifics of your emergency department visit. If you don't have a primary care physician on staff, we will provide you with a referral. We always advise you to contact your personal physician following an emergency department visit to inform them of the circumstance of the visit and for follow-up with them and/or the need for any referrals to a consulting specialist. The emergency department will also refer you to a specialist when appropriate. This referral assures that you have the opportunity for follow-up care with a specialist. All of these measure are taken in an effort to provide you with optimal care, which includes your follow-up. Under all circumstances we always encourage you to contact your private physician who remains a resource for coordinating your care. When calling for follow-up care, please make the office aware that this follow-up is from your recent emergency room visit. If for any reason you are refused follow-up, please contact the Emergency Department at and asked to speak to the emergency department charge nurse. Sepsis Event Note (ED) - Evaluation Sepsis Screening Result: No Definite Risk - Focused Exam Vital Signs: Vital Signs Temp Pulse Resp BP Pulse Ox 02/05/21 02:35 36.6 C 82 18 147/106 H 97
[2021-02-05 03:16] VITALS: BP 131/97; PULSE 72
== END 2021-02-05 03:02 | disposition home or self-care (01) ==
LOC: MW.ED 02:19
DX: G89.29 Other chronic pain (principal); M54.2 Cervicalgia; E78.00 Pure hypercholesterolemia, unspecified; I10 Essential (primary) hypertension; K21.9 Gastro-esophageal reflux disease without esophagitis; Z79.899 Other long term (current) drug therapy
CPT/HCPCS: 96372; 99283; A9270; J1100

== ENCOUNTER 2021-03-13 15:38 | Emergency (ER) | payer OTHER ==
[2021-03-13] MEDS ORDERED: Sodium Chloride 0.9% 1,000 ML IV ONE (16:03)
[2021-03-13 16:26] LABS: BLOOD UREA NITROGEN,BUN 12 mg/dL (7.0-18.0); CARBON DIOXIDE,CO2 24.9 mmol/L (21.0-32.0); CHLORIDE,CL 102 mmol/L (98-107); GLUCOSE RANDOM 101 mg/dL (74-106); POTASSIUM,K 3.5 mmol/L (3.5-5.1); SODIUM,NA 138 mmol/L (136-148)
[2021-03-13 19:13] VITALS: BP 135/87; PULSE 102
== END 2021-03-13 17:05 | disposition home or self-care (01) ==
LOC: MW.ED 15:38
DX: R07.9 Chest pain, unspecified (principal); E78.00 Pure hypercholesterolemia, unspecified; I10 Essential (primary) hypertension; K21.9 Gastro-esophageal reflux disease without esophagitis; Z79.899 Other long term (current) drug therapy
CPT/HCPCS: 36415; 71045; 80053; 84484; 85025; 93005; 99285; J7030

== ENCOUNTER 2021-05-15 16:10 | Emergency (ER) | payer OTHER ==
[2021-05-15] MEDS ORDERED: Acetaminophen/oxyCODONE 325-5 MG Tab PO ONE (16:47)
[2021-05-15] MEDS ORDERED: predniSONE 20 MG Tab PO ONE (16:47)
[2021-05-15 18:00] VITALS: BP 130/90; PULSE 90
== END 2021-05-15 17:54 | disposition home or self-care (01) ==
LOC: MW.ED 16:10
DX: M25.461 Effusion, right knee (principal); I10 Essential (primary) hypertension; F41.9 Anxiety disorder, unspecified; F32.A Depression, unspecified; Z79.899 Other long term (current) drug therapy
CPT/HCPCS: 73562; 99283; A9270

== ENCOUNTER 2021-05-20 17:41 | Emergency (ER) | payer OTHER ==
[2021-05-20 17:51] VITALS: BP 125/94; PULSE 93
[2021-05-20] MEDS ORDERED: LORazepam 2 MG/ML SDV IVPUSH ONE (18:23)
[2021-05-20 18:52] LABS: BLOOD UREA NITROGEN,BUN 10 mg/dL (7.0-18.0); CHLORIDE,CL 100 mmol/L (98-107); GLUCOSE RANDOM 109 mg/dL (74-106); POTASSIUM,K 3.2 mmol/L (3.5-5.1); SODIUM,NA 137 mmol/L (136-148)
== END 2021-05-20 20:13 | disposition home or self-care (01) ==
LOC: MW.ED 17:41
DX: F41.9 Anxiety disorder, unspecified (principal); R07.9 Chest pain, unspecified; I10 Essential (primary) hypertension; F32.A Depression, unspecified; F43.12 Post-traumatic stress disorder, chronic; Z79.899 Other long term (current) drug therapy
CPT/HCPCS: 36415; 71045; 80053; 83735; 84484; 85025; 93005; 96374; 99285; J2060

== ENCOUNTER 2021-05-28 14:01 | Emergency (ER) | payer OTHER ==
[2021-05-28] MEDS ORDERED: Ketorolac 60 MG/2 ML SDV IM ONE (15:41)
[2021-05-28] MEDS ORDERED: Morphine 4 MG/ML VIAL IM ONE (16:17)
[2021-05-28 16:50] VITALS: BP 123/68; PULSE 65
== END 2021-05-28 16:48 | disposition home or self-care (01) ==
LOC: MW.ED 14:01
DX: M23.91 Unspecified internal derangement of right knee (principal); K21.9 Gastro-esophageal reflux disease without esophagitis; E78.00 Pure hypercholesterolemia, unspecified; Z79.899 Other long term (current) drug therapy; Z72.0 Tobacco use
CPT/HCPCS: 73562; 96372; 99283; J1885; J2270

== ENCOUNTER 2021-05-30 22:33 | Emergency (ER) | payer OTHER ==
[2021-05-30] MEDS ORDERED: Sodium Chloride 0.9% 2.5 ML Syringe FLUSH PRN (23:32)
[2021-05-30] MEDS ORDERED: Sodium Chloride 0.9% 10 ML Syringe FLUSH PRN (23:32)
[2021-05-30] MEDS ORDERED: LORazepam 2 MG/ML SDV IVPUSH STA (23:32)
[2021-05-30] MEDS ORDERED: Aspirin 81 MG Tab.Chew PO STA (23:33)
[2021-05-30] MEDS ORDERED: Ondansetron 4 MG/2 ML SDV IVPUSH STA (23:34)
[2021-05-31 00:09] LABS: BLOOD UREA NITROGEN,BUN 13 mg/dL (7.0-18.0); CARBON DIOXIDE,CO2 26.2 mmol/L (21.0-32.0); CHLORIDE,CL 102 mmol/L (98-107); GLUCOSE RANDOM 133 mg/dL (74-106); POTASSIUM,K 3.1 mmol/L (3.5-5.1); SODIUM,NA 138 mmol/L (136-148)
[2021-05-31 00:41] VITALS: BP 122/82; PULSE 76
[2021-05-31] MEDS ORDERED: Ondansetron 4 MG Tab.DIS PO STA (00:43)
== END 2021-05-31 00:49 | disposition home or self-care (01) ==
LOC: MW.ED 22:33
DX: R07.9 Chest pain, unspecified (principal); I10 Essential (primary) hypertension; F41.9 Anxiety disorder, unspecified; F32.9 Major depressive disorder, single episode, unspecified; F43.10 Post-traumatic stress disorder, unspecified
CPT/HCPCS: 36415; 71045; 80053; 83735; 84484; 85025; 93005; 96374; 96375; 99285; A9270; J2060; J2405; J3490; 93010; 99284

== ENCOUNTER 2021-06-30 06:03 | Day surgery (SDC) | payer OTHER ==
[~2021-06-30 06:03] MED LIST: Lactated Ringers 1,000 ML IV SCH
[2021-06-30] MEDS ORDERED: Ropivacaine 0.5% 5 MG/ML 30 ML SDV ONE (06:43)
[2021-06-30] MEDS ORDERED: Lidocaine 2% 5 ML SDV ONE (06:43)
[2021-06-30] MEDS ORDERED: fentaNYL 100 MCG/2 ML SDV ONE ×2 (06:47→06:59)
[2021-06-30] MEDS ORDERED: Dexmedetomidine 200 MCG/2 ML SDV ONE (06:58)
[2021-06-30] MEDS ORDERED: Dexamethasone 4 MG/ML 5 ML MDV ONE (06:58)
[2021-06-30] MEDS ORDERED: Midazolam 1 MG/ML 2 ML SDV ONE (06:59)
[2021-06-30] MEDS ORDERED: Propofol 200 MG/20 ML SDV ONE (06:59)
[2021-06-30] MEDS ORDERED: Water For Injection, Sterile 20 ML ONE (07:00)
[2021-06-30] MEDS ORDERED: Octyl 2-Cyanoacrylate 1 Tube ONE (07:12)
[2021-06-30] MEDS ORDERED: Bupivacaine 0.25%/EPINEPHrine 1:200,000 10 ML SDV ONE (07:12)
[2021-06-30] MEDS ORDERED: ceFAZolin 2 GM in Premix Bag 1 BAG IV SCH (08:00)
[2021-06-30] MEDS ORDERED: Ondansetron 4 MG/2 ML SDV ONE (08:09)
[2021-06-30] MEDS ORDERED: Ketorolac 30 MG/ML SDV ONE (08:09)
[2021-06-30] MEDS ORDERED: fentaNYL 100 MCG/2 ML SDV IVPUSH PRN (08:15)
[2021-06-30] MEDS ORDERED: Naloxone 0.4 MG/ML SDV IVPUSH PRN (08:15)
[2021-06-30] MEDS ORDERED: Morphine 2 MG/ML SYRINGE IVPUSH PRN (08:15)
[2021-06-30] MEDS ORDERED: Albuterol 0.083% 2.5 MG/3 ML Neb Soln NEB PRN (08:15)
[2021-06-30] MEDS ORDERED: Ondansetron 4 MG/2 ML SDV IVPUSH PRN (08:15)
[2021-06-30] MEDS ORDERED: Metoclopramide 10 MG/2 ML SDV IVPUSH PRN (08:15)
[2021-06-30] MEDS ORDERED: HYDROmorphone 1 MG/ML Syringe IVPUSH PRN (08:15)
[2021-06-30 09:29] VITALS: BP 115/83; PULSE 68
== END 2021-06-30 09:25 | disposition home or self-care (01) ==
LOC: MW.SDS 06:03
PROVIDERS: ATTEND Orthopaedic Surgery
DX: S83.231A Complex tear of medial meniscus, current injury, right knee, initial encounter (principal); F41.9 Anxiety disorder, unspecified; I10 Essential (primary) hypertension; G47.00 Insomnia, unspecified; F17.200 Nicotine dependence, unspecified, uncomplicated; E78.00 Pure hypercholesterolemia, unspecified; K21.9 Gastro-esophageal reflux disease without esophagitis; Z88.5 Allergy status to narcotic agent; Z88.0 Allergy status to penicillin; X58.XXXA Exposure to other specified factors, initial encounter; Z79.899 Other long term (current) drug therapy
CPT/HCPCS: 29881; J1100; J1885; J2250; J2704; J2795; J3490; J7120; A9270-GY; J2405; J3010

== ENCOUNTER 2021-10-04 08:53 | Emergency (ER) | payer OTHER ==
[2021-10-04 09:46] VITALS: BP 128/97; PULSE 74
== END 2021-10-04 13:04 | disposition left against medical advice (07) ==
LOC: MW.ED 08:53
DX: Z53.21 Procedure and treatment not carried out due to patient leaving prior to being seen by health care provider (principal)

== ENCOUNTER 2021-12-02 15:30 | Emergency (ER) | payer OTHER ==
[2021-12-02 17:23] LABS: CORONAVIRUS COVID-19 NAA NEGATIVE (NEGATIVE); INFLUENZA A NAA NEGATIVE (NEGATIVE); INFLUENZA B NAA NEGATIVE (NEGATIVE); RESPIRATORY SYNCYTIAL VIR NAA NEGATIVE (NEGATIVE)
[2021-12-02 17:49] LABS: POTASSIUM,K 3.6 mmol/L (3.5-5.1)
[2021-12-02 18:49] VITALS: BP 128/85; PULSE 69
== END 2021-12-02 18:51 | disposition home or self-care (01) ==
LOC: MW.ED 15:30
DX: R42 Dizziness and giddiness (principal); F41.9 Anxiety disorder, unspecified; E78.00 Pure hypercholesterolemia, unspecified; I10 Essential (primary) hypertension; Z88.5 Allergy status to narcotic agent; Z88.0 Allergy status to penicillin; Z79.899 Other long term (current) drug therapy; Z90.49 Acquired absence of other specified parts of digestive tract; Z20.822 Contact with and (suspected) exposure to COVID-19
CPT/HCPCS: 0241U; 36415; 70450; 80053; 84484; 85025; 99285; 93010; 99283

== ENCOUNTER 2022-01-05 08:12 | Day surgery (SDC) | payer OTHER ==
[2022-01-05] MEDS ORDERED: Lactated Ringers 1,000 ML IV SCH (09:00)
[2022-01-05] MEDS ORDERED: Propofol 200 MG/20 ML SDV ONE (09:33)
[2022-01-05] MEDS ORDERED: Lidocaine 2% 5 ML SDV ONE (09:34)
[2022-01-05 11:31] VITALS: BP 107/73; PULSE 65
== END 2022-01-05 11:40 | disposition home or self-care (01) ==
LOC: MW.SDS 08:12
PROVIDERS: ATTEND Surgery
DX: K62.89 Other specified diseases of anus and rectum (principal); K64.8 Other hemorrhoids; G47.33 Obstructive sleep apnea (adult) (pediatric); I10 Essential (primary) hypertension; E78.00 Pure hypercholesterolemia, unspecified; G43.909 Migraine, unspecified, not intractable, without status migrainosus; K21.9 Gastro-esophageal reflux disease without esophagitis; F41.9 Anxiety disorder, unspecified; F32.A Depression, unspecified; E66.9 Obesity, unspecified; F17.210 Nicotine dependence, cigarettes, uncomplicated; Z68.31 Body mass index [BMI] 31.0-31.9, adult; Z98.890 Other specified postprocedural states; Z90.49 Acquired absence of other specified parts of digestive tract; Z79.899 Other long term (current) drug therapy; Z88.0 Allergy status to penicillin; Z88.5 Allergy status to narcotic agent
CPT/HCPCS: 45380; 88305; J2704; J7120; 00811

== ENCOUNTER 2022-05-26 19:56 | Emergency (ER) | payer OTHER ==
[2022-05-26] MEDS ORDERED: LORazepam 2 MG/ML SDV IVPUSH ONE (20:14)
[2022-05-26] MEDS ORDERED: Sodium Chloride 0.9% 1,000 ML IV ONE (20:15)
[2022-05-26 20:40] LABS: BLOOD UREA NITROGEN,BUN 9 mg/dL (7.0-18.0); CARBON DIOXIDE,CO2 23.8 mmol/L (21.0-32.0); CHLORIDE,CL 102 mmol/L (98-107); GLUCOSE RANDOM 121 mg/dL (74-106); POTASSIUM,K 3.2 mmol/L (3.5-5.1); SODIUM,NA 138 mmol/L (136-148)
[2022-05-26 20:50] LABS: ESTIMATED GFR 94 mL/min (>60)
[2022-05-26 21:51] VITALS: BP 118/65; PULSE 76
== END 2022-05-26 21:12 | disposition home or self-care (01) ==
LOC: MW.ED 19:56
DX: F41.9 Anxiety disorder, unspecified (principal); E78.00 Pure hypercholesterolemia, unspecified; I10 Essential (primary) hypertension; K21.9 Gastro-esophageal reflux disease without esophagitis; E66.9 Obesity, unspecified; Z68.30 Body mass index [BMI] 30.0-30.9, adult; Z88.0 Allergy status to penicillin; Z88.5 Allergy status to narcotic agent; Z79.899 Other long term (current) drug therapy
CPT/HCPCS: 36415; 71045; 80053; 84484; 85025; 93005; 96374; 99285; J2060; J7030

== ENCOUNTER 2022-06-06 05:28 | Emergency (ER) | payer OTHER ==
[2022-06-06] MEDS ORDERED: Sodium Chloride 0.9% 10 ML Syringe FLUSH PRN (05:44)
[2022-06-06] MEDS ORDERED: Sodium Chloride 0.9% 2.5 ML Syringe FLUSH PRN (05:44)
[2022-06-06] MEDS ORDERED: LORazepam 2 MG/ML SDV IVPUSH ONE (05:45)
[2022-06-06 06:16] LABS: CARBON DIOXIDE,CO2 26.1 mmol/L (21.0-32.0); POTASSIUM,K 3.3 mmol/L (3.5-5.1)
[2022-06-06 07:39] VITALS: BP 126/91; PULSE 68
== END 2022-06-06 07:39 | disposition home or self-care (01) ==
LOC: MW.ED 05:28
DX: T78.8XXA Other adverse effects, not elsewhere classified, initial encounter (principal); I10 Essential (primary) hypertension; K21.9 Gastro-esophageal reflux disease without esophagitis; E66.9 Obesity, unspecified; Z88.0 Allergy status to penicillin; Z88.5 Allergy status to narcotic agent
CPT/HCPCS: 36415; 80053; 83735; 84484; 85025; 93005; 96374; 99285; J2060; J3490; 93010; 99283

== ENCOUNTER 2022-06-07 14:54 | Emergency (ER) | payer OTHER ==
[2022-06-07 15:50] VITALS: BP 127/85; PULSE 68
== END 2022-06-07 15:49 | disposition home or self-care (01) ==
LOC: MW.ED 14:54
DX: R07.9 Chest pain, unspecified (principal); R40.0 Somnolence; E78.00 Pure hypercholesterolemia, unspecified; I10 Essential (primary) hypertension; E66.9 Obesity, unspecified; Z68.30 Body mass index [BMI] 30.0-30.9, adult; Z88.5 Allergy status to narcotic agent; Z88.0 Allergy status to penicillin; Z88.8 Allergy status to other drugs, medicaments and biological substances; Z79.899 Other long term (current) drug therapy; Z90.49 Acquired absence of other specified parts of digestive tract
CPT/HCPCS: 93005; 93010; 99284

== ENCOUNTER 2022-06-15 01:30 | Emergency (ER) | payer OTHER ==
[2022-06-15] MEDS ORDERED: Bupivacaine 0.25% 10 ML SDV INJECT ONE (01:43)
[2022-06-15] MEDS ORDERED: Gabapentin 300 MG Cap PO ONE (01:43)
[2022-06-15] MEDS ORDERED: Ketorolac 30 MG/ML SDV IM ONE (01:43)
[2022-06-15] MEDS ORDERED: Dexamethasone 4 MG Tab PO ONE (01:43)
[2022-06-15 02:13] VITALS: BP 125/88; PULSE 65
== END 2022-06-15 02:10 | disposition home or self-care (01) ==
LOC: MW.ED 01:30
DX: M54.81 Occipital neuralgia (principal); E78.00 Pure hypercholesterolemia, unspecified; I10 Essential (primary) hypertension; K21.9 Gastro-esophageal reflux disease without esophagitis; E66.9 Obesity, unspecified; Z68.30 Body mass index [BMI] 30.0-30.9, adult; Z88.5 Allergy status to narcotic agent; Z88.0 Allergy status to penicillin; Z88.8 Allergy status to other drugs, medicaments and biological substances; Z79.899 Other long term (current) drug therapy
CPT/HCPCS: 96372; 99283; A9270; J1885; J3490; J8540

== ENCOUNTER 2022-06-24 06:06 | Emergency (ER) | payer OTHER ==
[2022-06-24] MEDS ORDERED: Sodium Chloride 0.9% 2.5 ML Syringe FLUSH PRN (06:48)
[2022-06-24] MEDS ORDERED: Sodium Chloride 0.9% 10 ML Syringe FLUSH PRN (06:48)
[2022-06-24] MEDS ORDERED: Sodium Chloride 0.9% 1,000 ML IV ONE (06:48)
[2022-06-24 06:55] LABS: BASOPHILS ABSOLUTE AUTO 0.1 K/uL (0.0-0.1); BASOPHILS PERCENT AUTO 0.5 % (0.0-1.5); EOSINOPHILS ABSOLUTE AUTO 0.3 K/uL (0.0-0.7); HEMATOCRIT 43.4 % (38.0-50.0); HEMOGLOBIN 14.8 g/dL (13.0-17.0); LYMPHOCYTES ABSOLUTE AUTO 4.7 K/uL (0.6-2.4); LYMPHOCYTES PERCENT AUTO 44.9 % (16.0-40.0); MEAN CORPUSCULAR HEMOGLOBIN 28.8 pg (27.0-32.0); MEAN CORPUSCULAR HGB CONC 34.1 g/dL (31.0-37.0); MEAN CORPUSCULAR VOLUME 84.6 fL (80.0-98.0); MONOCYTES ABSOLUTE AUTO 0.9 K/uL (0.0-0.8); MONOCYTES PERCENT AUTO 8.9 % (0.0-15.0); NEUTROPHILS ABSOLUTE AUTO 4.5 K/uL (1.4-5.7); NEUTROPHILS PERCENT AUTO 42.7 % (48.0-80.0); NRBC ABSOLUTE 0 K/uL; PLATELET COUNT,PLT 268 K/uL (150-400); RED BLOOD CELL COUNT 5.13 M/uL (4.50-5.90); WHITE BLOOD CELL COUNT,WBC 10.47 K/uL (4.0-11.0)
[2022-06-24 07:10] LABS: ALBUMIN 3.6 g/dL (3.4-5.0); BILIRUBIN TOTAL 0.3 mg/dL (0.2-1.0); CALCIUM 8.2 mg/dL (8.5-10.1); CARBON DIOXIDE,CO2 26.6 mmol/L (21.0-32.0); CREATININE 0.8 mg/dL (0.8-1.3); EST CRCL DRUG DOSING (CG) 100.36 mL/min; POTASSIUM,K 3.4 mmol/L (3.5-5.1); PROTEIN TOTAL,TP 7.2 g/dL (6.4-8.2)
[2022-06-24 10:25] VITALS: BP 122/90; PULSE 68
== END 2022-06-24 10:22 | disposition home or self-care (01) ==
LOC: MW.ED 06:06
DX: R07.89 Other chest pain (principal); E78.00 Pure hypercholesterolemia, unspecified; I10 Essential (primary) hypertension; K21.9 Gastro-esophageal reflux disease without esophagitis; E66.9 Obesity, unspecified; Z88.5 Allergy status to narcotic agent; Z88.0 Allergy status to penicillin; Z88.8 Allergy status to other drugs, medicaments and biological substances; Z79.899 Other long term (current) drug therapy; Z68.29 Body mass index [BMI] 29.0-29.9, adult
CPT/HCPCS: 36415; 71045; 80053; 83690; 83735; 84484; 85025; 85379; 93005; 99285; J7030; 93010; 99284

== ENCOUNTER 2022-06-25 12:57 | Emergency (ER) | payer OTHER ==
[2022-06-25] MEDS ORDERED: LORazepam 2 MG/ML SDV IM ONE (13:12)
[2022-06-25 13:24] LABS: BASOPHILS PERCENT AUTO 0.3 % (0.0-1.5); EOSINOPHILS ABSOLUTE AUTO 0.1 K/uL (0.0-0.7); EOSINOPHILS PERCENT AUTO 1.1 % (0.0-7.0); HEMATOCRIT 43.1 % (38.0-50.0); HEMOGLOBIN 14.8 g/dL (13.0-17.0); LYMPHOCYTES ABSOLUTE AUTO 4.2 K/uL (0.6-2.4); LYMPHOCYTES PERCENT AUTO 39.6 % (16.0-40.0); MEAN CORPUSCULAR HEMOGLOBIN 28.8 pg (27.0-32.0); MEAN CORPUSCULAR HGB CONC 34.3 g/dL (31.0-37.0); MONOCYTES ABSOLUTE AUTO 0.7 K/uL (0.0-0.8); MONOCYTES PERCENT AUTO 6.4 % (0.0-15.0); NEUTROPHILS ABSOLUTE AUTO 5.6 K/uL (1.4-5.7); NEUTROPHILS PERCENT AUTO 52.6 % (48.0-80.0); NRBC ABSOLUTE 0 K/uL; PLATELET COUNT,PLT 272 K/uL (150-400); RED BLOOD CELL COUNT 5.13 M/uL (4.50-5.90); WHITE BLOOD CELL COUNT,WBC 10.55 K/uL (4.0-11.0)
[2022-06-25 13:48] LABS: A/G RATIO 1.1 (0.9-1.6); ALANINE AMINOTRANSFERASE,ALT 30 IU/L (14-63); ALBUMIN 3.9 g/dL (3.4-5.0); ALKALINE PHOSPHATASE 103 U/L (46-116); ASPARTATE AMNIOTRANSFERASE,AST 12 IU/L (15-37); BILIRUBIN TOTAL 0.3 mg/dL (0.2-1.0); BLOOD UREA NITROGEN,BUN 13 mg/dL (7.0-18.0); CALCIUM 8.3 mg/dL (8.5-10.1); CARBON DIOXIDE,CO2 25.7 mmol/L (21.0-32.0); CHLORIDE,CL 101 mmol/L (98-107); EST CRCL DRUG DOSING (CG) 80.29 mL/min; GLUCOSE RANDOM 111 mg/dL (74-106); POTASSIUM,K 3.6 mmol/L (3.5-5.1); PROTEIN TOTAL,TP 7.5 g/dL (6.4-8.2); SODIUM,NA 139 mmol/L (136-148)
[2022-06-25 13:50] LABS: ESTIMATED GFR 94 mL/min (>60)
[2022-06-25 14:13] VITALS: BP 129/90
[2022-06-25 14:43] VITALS: PULSE 84
== END 2022-06-25 14:23 | disposition home or self-care (01) ==
LOC: MW.ED 12:57
DX: R07.89 Other chest pain (principal); F41.0 Panic disorder [episodic paroxysmal anxiety]; I10 Essential (primary) hypertension; K21.9 Gastro-esophageal reflux disease without esophagitis; E78.00 Pure hypercholesterolemia, unspecified; E66.9 Obesity, unspecified; Z68.29 Body mass index [BMI] 29.0-29.9, adult; Z88.5 Allergy status to narcotic agent; Z88.0 Allergy status to penicillin; Z88.8 Allergy status to other drugs, medicaments and biological substances; Z79.899 Other long term (current) drug therapy
CPT/HCPCS: 36415; 80053; 84484; 85025; 93005; 96372; 99285; J2060; 93010; 99283

== ENCOUNTER 2022-07-10 10:46 | Emergency (ER) | payer OTHER ==
[2022-07-10] MEDS ORDERED: Promethazine 25 MG/ML SDV IM STA (12:38)
[2022-07-10] MEDS ORDERED: Ketorolac 60 MG/2 ML SDV IM STA (12:38)
[2022-07-10 13:28] VITALS: BP 119/85; PULSE 67
== END 2022-07-10 13:28 | disposition home or self-care (01) ==
LOC: MW.ED 10:46
DX: G43.909 Migraine, unspecified, not intractable, without status migrainosus (principal); E78.00 Pure hypercholesterolemia, unspecified; K21.9 Gastro-esophageal reflux disease without esophagitis; I10 Essential (primary) hypertension; E66.9 Obesity, unspecified; Z68.30 Body mass index [BMI] 30.0-30.9, adult; Z88.5 Allergy status to narcotic agent; Z88.0 Allergy status to penicillin; Z88.8 Allergy status to other drugs, medicaments and biological substances; Z79.899 Other long term (current) drug therapy
CPT/HCPCS: 96372; 99283; J1885; J2550

== ENCOUNTER 2022-08-03 15:59 | Emergency (ER) | payer OTHER ==
[2022-08-03] MEDS ORDERED: Aspirin 81 MG Tab.Chew PO ONE (16:06)
[2022-08-03] MEDS ORDERED: diphenhydrAMINE 50 MG Cap PO ONE (16:07)
[2022-08-03 16:36] LABS: BASOPHILS PERCENT AUTO 0.4 % (0.0-1.5); EOSINOPHILS ABSOLUTE AUTO 0.1 K/uL (0.0-0.7); EOSINOPHILS PERCENT AUTO 1.5 % (0.0-7.0); HEMATOCRIT 43.5 % (38.0-50.0); HEMOGLOBIN 14.7 g/dL (13.0-17.0); LYMPHOCYTES ABSOLUTE AUTO 3.8 K/uL (0.6-2.4); LYMPHOCYTES PERCENT AUTO 39.4 % (16.0-40.0); MEAN CORPUSCULAR HEMOGLOBIN 28.7 pg (27.0-32.0); MEAN CORPUSCULAR HGB CONC 33.8 g/dL (31.0-37.0); MEAN CORPUSCULAR VOLUME 84.8 fL (80.0-98.0); MONOCYTES ABSOLUTE AUTO 0.7 K/uL (0.0-0.8); NEUTROPHILS ABSOLUTE AUTO 4.9 K/uL (1.4-5.7); NEUTROPHILS PERCENT AUTO 51.7 % (48.0-80.0); NRBC ABSOLUTE 0 K/uL; PLATELET COUNT,PLT 229 K/uL (150-400); RED BLOOD CELL COUNT 5.13 M/uL (4.50-5.90); WHITE BLOOD CELL COUNT,WBC 9.51 K/uL (4.0-11.0)
[2022-08-03 17:00] LABS: A/G RATIO 1.2 (0.9-1.6); ALBUMIN 4.2 g/dL (3.4-5.0); BILIRUBIN TOTAL 0.4 mg/dL (0.2-1.0); CALCIUM 8.5 mg/dL (8.5-10.1); CARBON DIOXIDE,CO2 26.3 mmol/L (21.0-32.0); CREATININE 0.9 mg/dL (0.8-1.3); EST CRCL DRUG DOSING (CG) 89.21 mL/min; POTASSIUM,K 3.7 mmol/L (3.5-5.1); PROTEIN TOTAL,TP 7.6 g/dL (6.4-8.2)
[2022-08-03 17:34] VITALS: BP 133/94; PULSE 78
== END 2022-08-03 17:31 | disposition home or self-care (01) ==
LOC: MW.ED 15:59
DX: R07.89 Other chest pain (principal); R42 Dizziness and giddiness; R06.02 Shortness of breath; E78.00 Pure hypercholesterolemia, unspecified; I10 Essential (primary) hypertension; K21.9 Gastro-esophageal reflux disease without esophagitis; Z88.5 Allergy status to narcotic agent; Z88.8 Allergy status to other drugs, medicaments and biological substances; Z88.0 Allergy status to penicillin; Z79.899 Other long term (current) drug therapy
CPT/HCPCS: 36415; 71045; 80053; 84484; 85025; 93005; 99285; A9270

== ENCOUNTER 2022-08-16 19:26 | Emergency (ER) | payer OTHER ==
[2022-08-16 21:11] VITALS: BP 145/93; PULSE 80
[2022-08-16] MEDS ORDERED: Ondansetron 4 MG Tab.DIS PO ONE (22:10)
[2022-08-16] MEDS ORDERED: Ketorolac 60 MG/2 ML SDV IM ONE (22:11)
== END 2022-08-16 23:02 | disposition home or self-care (01) ==
LOC: MW.ED 19:26
DX: M54.2 Cervicalgia (principal); E78.00 Pure hypercholesterolemia, unspecified; I10 Essential (primary) hypertension; K21.9 Gastro-esophageal reflux disease without esophagitis; Z79.899 Other long term (current) drug therapy
CPT/HCPCS: 96372; 99283; A9270; J1885

== ENCOUNTER 2022-09-11 17:11 | Emergency (ER) | payer OTHER ==
[2022-09-11] MEDS ORDERED: LORazepam 2 MG/ML SDV IM ONE (18:18)
[2022-09-11 18:57] VITALS: BP 132/75; PULSE 81
== END 2022-09-11 18:54 | disposition home or self-care (01) ==
LOC: MW.ED 17:11
DX: F41.0 Panic disorder [episodic paroxysmal anxiety] (principal); E78.00 Pure hypercholesterolemia, unspecified; I10 Essential (primary) hypertension; K21.9 Gastro-esophageal reflux disease without esophagitis; Z88.5 Allergy status to narcotic agent; Z88.0 Allergy status to penicillin; Z88.8 Allergy status to other drugs, medicaments and biological substances; Z79.899 Other long term (current) drug therapy
CPT/HCPCS: 93005; 96372; 99284; J2060; 93010; 99283

== ENCOUNTER 2022-09-14 08:39 | Emergency (ER) | payer OTHER ==
[2022-09-14] MEDS ORDERED: LORazepam 2 MG/ML SDV IM ONE (08:55)
[2022-09-14 09:30] VITALS: BP 114/77; PULSE 76
== END 2022-09-14 09:29 | disposition home or self-care (01) ==
LOC: MW.ED 08:39
DX: F41.0 Panic disorder [episodic paroxysmal anxiety] (principal); I10 Essential (primary) hypertension; E78.00 Pure hypercholesterolemia, unspecified; K21.9 Gastro-esophageal reflux disease without esophagitis; Z88.5 Allergy status to narcotic agent; Z88.0 Allergy status to penicillin; Z88.8 Allergy status to other drugs, medicaments and biological substances; Z79.899 Other long term (current) drug therapy
CPT/HCPCS: 93005; 96372; 99283; J2060; 93010; 99285

== ENCOUNTER 2022-11-12 06:01 | Emergency (ER) | payer OTHER ==
[2022-11-12] MEDS ORDERED: LORazepam 1 MG Tab PO ONE (06:22)
[2022-11-12 08:15] VITALS: BP 135/100; PULSE 70
== END 2022-11-12 08:13 | disposition home or self-care (01) ==
LOC: MW.ED 06:01
DX: R07.89 Other chest pain (principal); F41.9 Anxiety disorder, unspecified; K21.9 Gastro-esophageal reflux disease without esophagitis; Z88.0 Allergy status to penicillin; Z88.5 Allergy status to narcotic agent; Z79.899 Other long term (current) drug therapy; Z90.49 Acquired absence of other specified parts of digestive tract
CPT/HCPCS: 36415; 84484; 93005; 99285; A9270; 93010; 99282

== ENCOUNTER 2022-11-27 04:47 | Emergency (ER) | payer OTHER ==
[2022-11-27] MEDS ORDERED: Ketorolac 30 MG/ML SDV IVPUSH ONE (05:13)
[2022-11-27] MEDS ORDERED: Ondansetron 4 MG/2 ML SDV IVPUSH ONE (05:13)
[2022-11-27] MEDS ORDERED: Lactated Ringers 1,000 ML IV SCH (05:15)
[2022-11-27 05:19] LABS: BASOPHILS ABSOLUTE AUTO 0.04 K/uL (0.00-0.20); BASOPHILS PERCENT AUTO 0.5 % (0.0-1.0); EOSINOPHILS ABSOLUTE AUTO 0.02 K/uL (0.00-0.45); EOSINOPHILS PERCENT AUTO 0.3 % (0.0-6.0); HEMATOCRIT 44.2 % (42.0-52.0); HEMOGLOBIN 15.4 g/dL (14.0-18.0); IMMATURE GRAN ABSOLUTE AUTO 0.02 K/uL (0.00-0.05); IMMATURE GRAN PERCENT AUTO 0.3 % (0.0-0.4); LYMPHOCYTES PERCENT AUTO 28.8 % (24.0-44.0); MEAN CORPUSCULAR HEMOGLOBIN 28.5 pg (28.0-32.0); MEAN CORPUSCULAR HGB CONC 34.8 g/dL (32.0-36.0); MEAN CORPUSCULAR VOLUME 81.9 fL (83.0-99.0); MEAN PLATELET VOLUME 10.4 fL (9.4-12.4); MONOCYTES ABSOLUTE AUTO 0.59 K/uL (0.00-0.80); MONOCYTES PERCENT AUTO 8.1 % (0.0-8.0); NEUTROPHILS ABSOLUTE AUTO 4.5 K/uL (1.8-7.7); PLATELET COUNT,PLT 173 K/uL (150-400); WHITE BLOOD CELL COUNT,WBC 7.29 K/uL (3.9-11.3)
[2022-11-27 05:57] LABS: CORONAVIRUS COVID-19 NAA POSITIVE (NEGATIVE); INFLUENZA A NAA NEGATIVE (NEGATIVE); INFLUENZA B NAA NEGATIVE (NEGATIVE); RESPIRATORY SYNCYTIAL VIR NAA NEGATIVE (NEGATIVE)
[2022-11-27] MEDS ORDERED: Loperamide 2 MG Cap PO ONE (06:08)
[2022-11-27 06:22] LABS: A/G RATIO 1.2 (0.9-1.6); ALBUMIN 4.4 g/dL (3.4-5.0); BILIRUBIN TOTAL 0.3 mg/dL (0.2-1.0); CALCIUM 8.2 mg/dL (8.5-10.1); CARBON DIOXIDE,CO2 21.9 mmol/L (21.0-32.0); EST CRCL DRUG DOSING (CG) 80.29 mL/min; MAGNESIUM 1.8 mg/dL (1.8-2.4); POTASSIUM,K 3.1 mmol/L (3.5-5.1); PROTEIN TOTAL,TP 8.1 g/dL (6.4-8.2); TSH ULTRASENSITIVE 0.48 uIU/mL (0.36-3.74)
[2022-11-27 07:02] VITALS: BP 90/57; PULSE 71
== END 2022-11-27 06:59 | disposition home or self-care (01) ==
LOC: MW.ED 04:47
DX: U07.1 COVID-19 (principal); K21.9 Gastro-esophageal reflux disease without esophagitis; Z88.5 Allergy status to narcotic agent; Z88.0 Allergy status to penicillin; Z88.8 Allergy status to other drugs, medicaments and biological substances; Z79.899 Other long term (current) drug therapy
CPT/HCPCS: 0241U; 36415; 80053; 83690; 83735; 84443; 85025; 93005; 96361; 96374; 96375; 99284; A9270; J1885; J2405; J7120; 93010

== ENCOUNTER 2022-11-28 19:51 | Emergency (ER) | payer OTHER ==
[2022-11-28 22:40] VITALS: BP 100/72; PULSE 71
== END 2022-11-28 22:37 | disposition home or self-care (01) ==
LOC: MW.ED 19:51
DX: U07.1 COVID-19 (principal); I10 Essential (primary) hypertension; K21.9 Gastro-esophageal reflux disease without esophagitis; Z88.8 Allergy status to other drugs, medicaments and biological substances; Z88.5 Allergy status to narcotic agent; Z88.0 Allergy status to penicillin
CPT/HCPCS: 71046; 71046-26; 93005; 93010; 99283; 99285

== ENCOUNTER 2023-02-22 13:09 | Emergency (ER) | payer OTHER ==
[2023-02-22 13:27] VITALS: BP 115/78; PULSE 74
== END 2023-02-22 14:15 | disposition home or self-care (01) ==
LOC: MW.ED 13:09
DX: J06.9 Acute upper respiratory infection, unspecified (principal); J32.8 Other chronic sinusitis; B96.89 Other specified bacterial agents as the cause of diseases classified elsewhere; I10 Essential (primary) hypertension; K21.9 Gastro-esophageal reflux disease without esophagitis
CPT/HCPCS: 99283

== ENCOUNTER 2023-02-25 06:20 | Emergency (ER) | payer OTHER ==
[2023-02-25] MEDS ORDERED: Sodium Chloride 0.9% 10 ML Syringe FLUSH PRN (06:34)
[2023-02-25] MEDS ORDERED: Sodium Chloride 0.9% 2.5 ML Syringe FLUSH PRN (06:34)
[2023-02-25 06:40] LABS: BASOPHILS ABSOLUTE AUTO 0.05 K/uL (0.00-0.20); BASOPHILS PERCENT AUTO 0.4 % (0.0-1.0); EOSINOPHILS ABSOLUTE AUTO 0.23 K/uL (0.00-0.45); HEMATOCRIT 44.7 % (42.0-52.0); HEMOGLOBIN 15.4 g/dL (14.0-18.0); IMMATURE GRAN ABSOLUTE AUTO 0.03 K/uL (0.00-0.05); IMMATURE GRAN PERCENT AUTO 0.3 % (0.0-0.4); LYMPHOCYTES ABSOLUTE AUTO 3.92 K/uL (1.00-4.80); LYMPHOCYTES PERCENT AUTO 33.6 % (24.0-44.0); MEAN CORPUSCULAR HEMOGLOBIN 28.9 pg (28.0-32.0); MEAN CORPUSCULAR HGB CONC 34.5 g/dL (32.0-36.0); MEAN CORPUSCULAR VOLUME 83.9 fL (83.0-99.0); MEAN PLATELET VOLUME 10.1 fL (9.4-12.4); NEUTROPHILS ABSOLUTE AUTO 6.73 K/uL (1.80-7.70); NEUTROPHILS PERCENT AUTO 57.7 % (41.0-71.0); PLATELET COUNT,PLT 250 K/uL (150-400); RED BLOOD CELL COUNT 5.33 M/uL (4.52-5.90); WHITE BLOOD CELL COUNT,WBC 11.66 K/uL (3.9-11.3)
[2023-02-25 07:02] LABS: A/G RATIO 1.2 (0.9-1.6); ALBUMIN 4.2 g/dL (3.4-5.0); BILIRUBIN TOTAL 0.4 mg/dL (0.2-1.0); CALCIUM 7.8 mg/dL (8.5-10.1); CARBON DIOXIDE,CO2 26.2 mmol/L (21.0-32.0); CREATININE 0.9 mg/dL (0.8-1.3); EST CRCL DRUG DOSING (CG) 89.21 mL/min; POTASSIUM,K 3.1 mmol/L (3.5-5.1); PROTEIN TOTAL,TP 7.8 g/dL (6.4-8.2)
[2023-02-25] MEDS ORDERED: Potassium Chloride 20 MEQ Tab.ER PO STA (07:23)
[2023-02-25 09:08] VITALS: BP 116/74; PULSE 58
== END 2023-02-25 09:16 | disposition home or self-care (01) ==
LOC: MW.ED 06:20
DX: R07.89 Other chest pain (principal); I10 Essential (primary) hypertension; E78.00 Pure hypercholesterolemia, unspecified; Z79.899 Other long term (current) drug therapy; Z88.0 Allergy status to penicillin; Z88.5 Allergy status to narcotic agent; Z88.8 Allergy status to other drugs, medicaments and biological substances
CPT/HCPCS: 36415; 71045; 80053; 84484; 85025; 93005; 99285; A9270; J3490

== ENCOUNTER 2023-03-19 01:44 | Emergency (ER) | payer OTHER ==
[2023-03-19] MEDS ORDERED: Sodium Chloride 0.9% 10 ML Syringe FLUSH PRN (02:00)
[2023-03-19] MEDS ORDERED: Sodium Chloride 0.9% 2.5 ML Syringe FLUSH PRN (02:00)
[2023-03-19 02:12] LABS: BASOPHILS ABSOLUTE AUTO 0.06 K/uL (0.00-0.20); BASOPHILS PERCENT AUTO 0.5 % (0.0-1.0); EOSINOPHILS ABSOLUTE AUTO 0.41 K/uL (0.00-0.45); EOSINOPHILS PERCENT AUTO 3.5 % (0.0-6.0); HEMOGLOBIN 14.6 g/dL (14.0-18.0); IMMATURE GRAN ABSOLUTE AUTO 0.02 K/uL (0.00-0.05); IMMATURE GRAN PERCENT AUTO 0.2 % (0.0-0.4); LYMPHOCYTES PERCENT AUTO 38.8 % (24.0-44.0); MEAN CORPUSCULAR HEMOGLOBIN 28.4 pg (28.0-32.0); MEAN CORPUSCULAR HGB CONC 33.2 g/dL (32.0-36.0); MEAN CORPUSCULAR VOLUME 85.6 fL (83.0-99.0); MEAN PLATELET VOLUME 10.5 fL (9.4-12.4); MONOCYTES ABSOLUTE AUTO 0.73 K/uL (0.00-0.80); MONOCYTES PERCENT AUTO 6.3 % (0.0-8.0); NEUTROPHILS ABSOLUTE AUTO 5.88 K/uL (1.80-7.70); NEUTROPHILS PERCENT AUTO 50.7 % (41.0-71.0); PLATELET COUNT,PLT 248 K/uL (150-400); RED BLOOD CELL COUNT 5.14 M/uL (4.52-5.90)
[2023-03-19 02:30] LABS: ALBUMIN 3.7 g/dL (3.4-5.0); BILIRUBIN TOTAL 0.2 mg/dL (0.2-1.0); CALCIUM 8.7 mg/dL (8.5-10.1); CREATININE 0.9 mg/dL (0.8-1.3); EST CRCL DRUG DOSING (CG) 89.21 mL/min; POTASSIUM,K 3.7 mmol/L (3.5-5.1); PROTEIN TOTAL,TP 7.3 g/dL (6.4-8.2)
[2023-03-19] MEDS ORDERED: LORazepam 2 MG/ML SDV IVPUSH ONE (03:12)
[2023-03-19 03:35] VITALS: BP 120/81; PULSE 73
== END 2023-03-19 03:32 | disposition home or self-care (01) ==
LOC: MW.ED 01:44
DX: R07.89 Other chest pain (principal); I10 Essential (primary) hypertension; E78.00 Pure hypercholesterolemia, unspecified; Z88.0 Allergy status to penicillin; Z88.8 Allergy status to other drugs, medicaments and biological substances; Z79.899 Other long term (current) drug therapy
CPT/HCPCS: 36415; 71045; 80053; 83690; 83880; 84484; 85025; 93005; 96374; 99285; J2060; J3490; 93010; 99284

== ENCOUNTER 2023-03-20 21:40 | Emergency (ER) | payer OTHER ==
[2023-03-20] MEDS ORDERED: Sodium Chloride 0.9% 2.5 ML Syringe FLUSH PRN (21:52)
[2023-03-20] MEDS ORDERED: Sodium Chloride 0.9% 10 ML Syringe FLUSH PRN (21:52)
[2023-03-20 22:10] LABS: BASOPHILS ABSOLUTE AUTO 0.05 K/uL (0.00-0.20); BASOPHILS PERCENT AUTO 0.4 % (0.0-1.0); EOSINOPHILS ABSOLUTE AUTO 0.18 K/uL (0.00-0.45); EOSINOPHILS PERCENT AUTO 1.6 % (0.0-6.0); HEMATOCRIT 43.1 % (42.0-52.0); HEMOGLOBIN 14.8 g/dL (14.0-18.0); IMMATURE GRAN ABSOLUTE AUTO 0.02 K/uL (0.00-0.05); IMMATURE GRAN PERCENT AUTO 0.2 % (0.0-0.4); LYMPHOCYTES ABSOLUTE AUTO 3.46 K/uL (1.00-4.80); MEAN CORPUSCULAR HEMOGLOBIN 28.6 pg (28.0-32.0); MEAN CORPUSCULAR HGB CONC 34.3 g/dL (32.0-36.0); MEAN CORPUSCULAR VOLUME 83.4 fL (83.0-99.0); MEAN PLATELET VOLUME 9.9 fL (9.4-12.4); MONOCYTES ABSOLUTE AUTO 0.68 K/uL (0.00-0.80); MONOCYTES PERCENT AUTO 6.1 % (0.0-8.0); NEUTROPHILS ABSOLUTE AUTO 6.76 K/uL (1.80-7.70); NEUTROPHILS PERCENT AUTO 60.7 % (41.0-71.0); PLATELET COUNT,PLT 249 K/uL (150-400); RED BLOOD CELL COUNT 5.17 M/uL (4.52-5.90); WHITE BLOOD CELL COUNT,WBC 11.15 K/uL (3.9-11.3)
[2023-03-20 22:37] LABS: A/G RATIO 1.2 (0.9-1.6); ALBUMIN 4.3 g/dL (3.4-5.0); BILIRUBIN TOTAL 0.4 mg/dL (0.2-1.0); CALCIUM 8.6 mg/dL (8.5-10.1); CARBON DIOXIDE,CO2 24.6 mmol/L (21.0-32.0); EST CRCL DRUG DOSING (CG) 71.28 mL/min; POTASSIUM,K 3.5 mmol/L (3.5-5.1); PROTEIN TOTAL,TP 7.9 g/dL (6.4-8.2)
[2023-03-20] MEDS ORDERED: Ondansetron 4 MG/2 ML SDV IVPUSH ONE (22:53)
[2023-03-20] MEDS ORDERED: ALPRAZolam 0.5 MG Tab PO ONE (23:01)
[2023-03-21 06:47] VITALS: BP 113/83; PULSE 67
== END 2023-03-21 01:14 | disposition other institution (70) ==
LOC: MW.ED 21:40
DX: R07.9 Chest pain, unspecified (principal); R45.851 Suicidal ideations; I10 Essential (primary) hypertension; E78.00 Pure hypercholesterolemia, unspecified; Z88.0 Allergy status to penicillin; Z88.8 Allergy status to other drugs, medicaments and biological substances; Z79.899 Other long term (current) drug therapy
CPT/HCPCS: 36415; 71046; 80053; 84484; 85025; 93005; 96374; 99285; A9270; J2405; J3490; 93010

== ENCOUNTER 2023-09-10 04:49 | Emergency (ER) | payer OTHER ==
[2023-09-10 05:08] LABS: BASOPHILS ABSOLUTE AUTO 0.05 K/uL (0.00-0.20); BASOPHILS PERCENT AUTO 0.5 % (0.0-1.0); EOSINOPHILS ABSOLUTE AUTO 0.23 K/uL (0.00-0.45); EOSINOPHILS PERCENT AUTO 2.4 % (0.0-6.0); HEMATOCRIT 41.6 % (42.0-52.0); HEMOGLOBIN 14.6 g/dL (14.0-18.0); IMMATURE GRAN ABSOLUTE AUTO 0.02 K/uL (0.00-0.05); IMMATURE GRAN PERCENT AUTO 0.2 % (0.0-0.4); LYMPHOCYTES ABSOLUTE AUTO 3.61 K/uL (1.00-4.80); LYMPHOCYTES PERCENT AUTO 37.3 % (24.0-44.0); MEAN CORPUSCULAR HGB CONC 35.1 g/dL (32.0-36.0); MEAN CORPUSCULAR VOLUME 82.5 fL (83.0-99.0); MEAN PLATELET VOLUME 9.5 fL (9.4-12.4); MONOCYTES ABSOLUTE AUTO 0.68 K/uL (0.00-0.80); NEUTROPHILS ABSOLUTE AUTO 5.08 K/uL (1.80-7.70); NEUTROPHILS PERCENT AUTO 52.6 % (41.0-71.0); PLATELET COUNT,PLT 239 K/uL (150-400); RED BLOOD CELL COUNT 5.04 M/uL (4.52-5.90); WHITE BLOOD CELL COUNT,WBC 9.67 K/uL (3.9-11.3)
[2023-09-10] MEDS: LORazepam 1 MG Tab PO ONE (05:27)
[2023-09-10 05:34] LABS: A/G RATIO 1.2 (0.9-1.6); BILIRUBIN TOTAL 0.4 mg/dL (0.2-1.0); CALCIUM 8.7 mg/dL (8.5-10.1); CREATININE 0.9 mg/dL (0.8-1.3); EST CRCL DRUG DOSING (CG) 88.26 mL/min; POTASSIUM,K 3.3 mmol/L (3.5-5.1); PROTEIN TOTAL,TP 7.3 g/dL (6.4-8.2)
[2023-09-10 05:47] VITALS: BP 116/74; PULSE 61
== END 2023-09-10 05:46 | disposition home or self-care (01) ==
LOC: MW.ED 04:49
DX: F41.9 Anxiety disorder, unspecified (principal); I10 Essential (primary) hypertension; E78.00 Pure hypercholesterolemia, unspecified; Z75.8 Other problems related to medical facilities and other health care; Z88.0 Allergy status to penicillin; Z88.8 Allergy status to other drugs, medicaments and biological substances; Z79.899 Other long term (current) drug therapy
CPT/HCPCS: 36415; 80053; 84484; 85025; 93005; 99285; A9270; 99284

== ENCOUNTER 2023-09-16 04:25 | Emergency (ER) | payer OTHER ==
[2023-09-16] MEDS: LORazepam 1 MG Tab PO ONE (04:42)
[2023-09-16 05:01] LABS: BASOPHILS ABSOLUTE AUTO 0.06 K/uL (0.00-0.20); BASOPHILS PERCENT AUTO 0.7 % (0.0-1.0); EOSINOPHILS ABSOLUTE AUTO 0.33 K/uL (0.00-0.45); HEMATOCRIT 42.4 % (42.0-52.0); HEMOGLOBIN 14.3 g/dL (14.0-18.0); IMMATURE GRAN ABSOLUTE AUTO 0.01 K/uL (0.00-0.05); IMMATURE GRAN PERCENT AUTO 0.1 % (0.0-0.4); LYMPHOCYTES ABSOLUTE AUTO 3.05 K/uL (1.00-4.80); LYMPHOCYTES PERCENT AUTO 36.7 % (24.0-44.0); MEAN CORPUSCULAR HEMOGLOBIN 28.7 pg (28.0-32.0); MEAN CORPUSCULAR HGB CONC 33.7 g/dL (32.0-36.0); MEAN CORPUSCULAR VOLUME 85.1 fL (83.0-99.0); MEAN PLATELET VOLUME 9.8 fL (9.4-12.4); MONOCYTES ABSOLUTE AUTO 0.58 K/uL (0.00-0.80); NEUTROPHILS ABSOLUTE AUTO 4.27 K/uL (1.80-7.70); NEUTROPHILS PERCENT AUTO 51.5 % (41.0-71.0); PLATELET COUNT,PLT 229 K/uL (150-400); RED BLOOD CELL COUNT 4.98 M/uL (4.52-5.90)
[2023-09-16 05:28] LABS: A/G RATIO 1.2 (0.9-1.6); ALBUMIN 4.1 g/dL (3.4-5.0); BILIRUBIN TOTAL 0.4 mg/dL (0.2-1.0); CALCIUM 9.1 mg/dL (8.5-10.1); CARBON DIOXIDE,CO2 28.2 mmol/L (21.0-32.0); CREATININE 0.9 mg/dL (0.8-1.3); EST CRCL DRUG DOSING (CG) 84.96 mL/min; POTASSIUM,K 4.1 mmol/L (3.5-5.1); PROTEIN TOTAL,TP 7.5 g/dL (6.4-8.2)
[2023-09-16 06:01] VITALS: BP 117/79; PULSE 61
== END 2023-09-16 06:00 | disposition home or self-care (01) ==
LOC: MW.ED 04:25
DX: R07.89 Other chest pain (principal); I10 Essential (primary) hypertension; E78.00 Pure hypercholesterolemia, unspecified; Z79.899 Other long term (current) drug therapy; Z88.0 Allergy status to penicillin; Z88.5 Allergy status to narcotic agent; Z88.8 Allergy status to other drugs, medicaments and biological substances
CPT/HCPCS: 36415; 80053; 84484; 85025; 93005; 99285; A9270; 93010; 99284

== ENCOUNTER 2023-10-17 18:30 | Emergency (ER) | payer OTHER ==
[2023-10-17] MEDS: Acetaminophen 500 MG Tab PO ONE (19:24)
[2023-10-17] MEDS: Nirmatrelvir/Ritonavir 300 MG/100 MG Dosepak PO SCH (21:30)
[2023-10-18 00:42] VITALS: BP 105/70; PULSE 77
== END 2023-10-17 21:35 | disposition home or self-care (01) ==
LOC: MW.ED 18:30
DX: U07.1 COVID-19 (principal); I10 Essential (primary) hypertension; E78.00 Pure hypercholesterolemia, unspecified; Z79.899 Other long term (current) drug therapy; Z90.49 Acquired absence of other specified parts of digestive tract; Z88.0 Allergy status to penicillin; Z88.5 Allergy status to narcotic agent; Z88.8 Allergy status to other drugs, medicaments and biological substances
CPT/HCPCS: 87635; 99284; A9270; U0002

== ENCOUNTER 2023-11-07 23:52 | Emergency (ER) | payer OTHER ==
[2023-11-08 00:08] LABS: HEMATOCRIT 39.6 % (42.0-52.0); HEMOGLOBIN 13.9 g/dL (14.0-18.0); MEAN CORPUSCULAR HEMOGLOBIN 29.7 pg (28.0-32.0); MEAN CORPUSCULAR HGB CONC 35.1 g/dL (32.0-36.0); MEAN CORPUSCULAR VOLUME 84.6 fL (83.0-99.0); MEAN PLATELET VOLUME 9.4 fL (9.4-12.4); PLATELET COUNT,PLT 234 K/uL (150-400); RED BLOOD CELL COUNT 4.68 M/uL (4.52-5.90); WHITE BLOOD CELL COUNT,WBC 10.72 K/uL (3.9-11.3)
[2023-11-08 00:31] LABS: BASOPHILS ABSOLUTE MAN 0.21 K/uL (0.00-0.20); BASOPHILS PERCENT MAN 2 % (0-1); EOSINOPHILS ABSOLUTE MAN 0.43 K/uL (0.00-0.45); EOSINOPHILS PERCENT MAN 4 % (0-6); LYMPHOCYTES ABSOLUTE MAN 4.18 K/uL (1.00-4.80); LYMPHOCYTES PERCENT MAN 39 % (24-44); MONOCYTES ABSOLUTE MAN 0.32 K/uL (0.00-0.80); MONOCYTES PERCENT MAN 3 % (0-8); SEG NEUTROPHILS ABSOLUTE MAN 5.57 K/uL (1.80-7.70); SEG NEUTROPHILS PERCENT MAN 52 % (41-71)
[2023-11-08 00:31] LABS: ACETAMINOPHEN <2.0 ug/mL; ETHANOL BLOOD MEDICAL <3 mg/dL; SALICYLATE 4.6 mg/dL (0.0-20.0)
[2023-11-08 00:35] LABS: A/G RATIO 1.2 (0.9-1.6); ALBUMIN 3.9 g/dL (3.4-5.0); BILIRUBIN TOTAL 0.3 mg/dL (0.2-1.0); CALCIUM 8.5 mg/dL (8.5-10.1); CARBON DIOXIDE,CO2 26.8 mmol/L (21.0-32.0); EST CRCL DRUG DOSING (CG) 79.44 mL/min; POTASSIUM,K 3.6 mmol/L (3.5-5.1); PROTEIN TOTAL,TP 7.2 g/dL (6.4-8.2)
[2023-11-08] MEDS: LORazepam 0.5 MG Tab PO ONE (01:06)
[2023-11-08] MEDS: Sodium Chloride 0.9% 10 ML Syringe FLUSH PRN (01:07)
[2023-11-08] MEDS: Sodium Chloride 0.9% 2.5 ML Syringe FLUSH PRN (01:07)
[2023-11-08 05:43] VITALS: BP 122/84; PULSE 61
== END 2023-11-08 05:47 | disposition home or self-care (01) ==
LOC: MW.ED 23:52
DX: R07.9 Chest pain, unspecified (principal); R45.851 Suicidal ideations; I10 Essential (primary) hypertension; E78.00 Pure hypercholesterolemia, unspecified; Z79.899 Other long term (current) drug therapy; Z88.0 Allergy status to penicillin; Z88.5 Allergy status to narcotic agent; Z88.8 Allergy status to other drugs, medicaments and biological substances; Z75.8 Other problems related to medical facilities and other health care
CPT/HCPCS: 36415; 71045; 80053; 80143; 80179; 80307; 84484; 85025; 99285; A9270; J3490

== ENCOUNTER 2023-11-09 17:23 | Emergency (ER) | payer OTHER ==
[2023-11-09 18:41] LABS: BASOPHILS ABSOLUTE AUTO 0.06 K/uL (0.00-0.20); BASOPHILS PERCENT AUTO 0.6 % (0.0-1.0); EOSINOPHILS ABSOLUTE AUTO 0.26 K/uL (0.00-0.45); EOSINOPHILS PERCENT AUTO 2.6 % (0.0-6.0); HEMATOCRIT 41.7 % (42.0-52.0); HEMOGLOBIN 14.4 g/dL (14.0-18.0); IMMATURE GRAN ABSOLUTE AUTO 0.01 K/uL (0.00-0.05); IMMATURE GRAN PERCENT AUTO 0.1 % (0.0-0.4); LYMPHOCYTES ABSOLUTE AUTO 3.13 K/uL (1.00-4.80); LYMPHOCYTES PERCENT AUTO 31.4 % (24.0-44.0); MEAN CORPUSCULAR HEMOGLOBIN 29.1 pg (28.0-32.0); MEAN CORPUSCULAR HGB CONC 34.5 g/dL (32.0-36.0); MEAN CORPUSCULAR VOLUME 84.2 fL (83.0-99.0); MEAN PLATELET VOLUME 9.9 fL (9.4-12.4); MONOCYTES ABSOLUTE AUTO 0.69 K/uL (0.00-0.80); MONOCYTES PERCENT AUTO 6.9 % (0.0-8.0); NEUTROPHILS ABSOLUTE AUTO 5.82 K/uL (1.80-7.70); NEUTROPHILS PERCENT AUTO 58.4 % (41.0-71.0); PLATELET COUNT,PLT 244 K/uL (150-400); RED BLOOD CELL COUNT 4.95 M/uL (4.52-5.90); WHITE BLOOD CELL COUNT,WBC 9.97 K/uL (3.9-11.3)
[2023-11-09 19:17] LABS: A/G RATIO 1.2 (0.9-1.6); ALBUMIN 4.2 g/dL (3.4-5.0); BILIRUBIN TOTAL 0.3 mg/dL (0.2-1.0); CALCIUM 8.5 mg/dL (8.5-10.1); CARBON DIOXIDE,CO2 28.4 mmol/L (21.0-32.0); CREATININE 0.9 mg/dL (0.8-1.3); EST CRCL DRUG DOSING (CG) 88.26 mL/min; POTASSIUM,K 3.8 mmol/L (3.5-5.1); PROTEIN TOTAL,TP 7.6 g/dL (6.4-8.2); TSH ULTRASENSITIVE 1.24 uIU/mL (0.36-3.74)
[2023-11-09] MEDS: LORazepam 0.5 MG Tab PO ONE (21:14)
[2023-11-09] MEDS: Acetaminophen 500 MG Tab PO ONE (21:14)
[2023-11-09 21:21] VITALS: BP 123/88; PULSE 66
== END 2023-11-09 21:14 | disposition home or self-care (01) ==
LOC: MW.ED 17:23
DX: F41.9 Anxiety disorder, unspecified (principal); R68.84 Jaw pain; F17.210 Nicotine dependence, cigarettes, uncomplicated; E78.00 Pure hypercholesterolemia, unspecified; I10 Essential (primary) hypertension; Z90.49 Acquired absence of other specified parts of digestive tract; Z79.899 Other long term (current) drug therapy; Z88.0 Allergy status to penicillin; Z88.5 Allergy status to narcotic agent; Z88.6 Allergy status to analgesic agent; Z75.8 Other problems related to medical facilities and other health care
CPT/HCPCS: 36415; 71045; 80053; 83880; 84443; 84484; 85025; 93005; 99285; A9270; 99284

== ENCOUNTER 2023-11-10 07:28 | Emergency (ER) | payer OTHER ==
[2023-11-10] MEDS: Aspirin 81 MG Tab.Chew PO ONE (08:34)
[2023-11-10 09:13] VITALS: BP 120/87; PULSE 73
== END 2023-11-10 08:41 | disposition home or self-care (01) ==
LOC: MW.ED 07:28
DX: R07.89 Other chest pain (principal); R68.84 Jaw pain; K08.89 Other specified disorders of teeth and supporting structures; F41.9 Anxiety disorder, unspecified; I10 Essential (primary) hypertension; E78.00 Pure hypercholesterolemia, unspecified; Z90.49 Acquired absence of other specified parts of digestive tract; Z88.0 Allergy status to penicillin; Z88.8 Allergy status to other drugs, medicaments and biological substances; Z79.899 Other long term (current) drug therapy; Z75.8 Other problems related to medical facilities and other health care
CPT/HCPCS: 93005; 99284; A9270; 93010

== ENCOUNTER 2023-11-11 05:47 | Emergency (ER) | payer OTHER ==
[2023-11-11 05:57] VITALS: BP 131/90; PULSE 89
[2023-11-11 06:25] LABS: BASOPHILS ABSOLUTE AUTO 0.05 K/uL (0.00-0.20); BASOPHILS PERCENT AUTO 0.5 % (0.0-1.0); EOSINOPHILS ABSOLUTE AUTO 0.15 K/uL (0.00-0.45); EOSINOPHILS PERCENT AUTO 1.5 % (0.0-6.0); HEMATOCRIT 41.3 % (42.0-52.0); HEMOGLOBIN 14.2 g/dL (14.0-18.0); IMMATURE GRAN ABSOLUTE AUTO 0.02 K/uL (0.00-0.05); IMMATURE GRAN PERCENT AUTO 0.2 % (0.0-0.4); LYMPHOCYTES ABSOLUTE AUTO 3.49 K/uL (1.00-4.80); LYMPHOCYTES PERCENT AUTO 34.7 % (24.0-44.0); MEAN CORPUSCULAR HGB CONC 34.4 g/dL (32.0-36.0); MEAN CORPUSCULAR VOLUME 84.3 fL (83.0-99.0); MEAN PLATELET VOLUME 9.7 fL (9.4-12.4); MONOCYTES ABSOLUTE AUTO 0.63 K/uL (0.00-0.80); MONOCYTES PERCENT AUTO 6.3 % (0.0-8.0); NEUTROPHILS ABSOLUTE AUTO 5.71 K/uL (1.80-7.70); NEUTROPHILS PERCENT AUTO 56.8 % (41.0-71.0); PLATELET COUNT,PLT 246 K/uL (150-400); WHITE BLOOD CELL COUNT,WBC 10.05 K/uL (3.9-11.3)
[2023-11-11] MEDS: Benzocaine 20% Topical Spray UD MUCMEM ONE (06:35)
[2023-11-11] MEDS: Lidocaine 2% Viscous Solution 15 ML UD PO ONE (06:35)
[2023-11-11] MEDS: Ketorolac 30 MG/ML SDV IM ONE (06:40)
[2023-11-11 07:33] LABS: A/G RATIO 1.2 (0.9-1.6); ALBUMIN 4.2 g/dL (3.4-5.0); BILIRUBIN TOTAL 0.4 mg/dL (0.2-1.0); CALCIUM 9.3 mg/dL (8.5-10.1); CREATININE 0.9 mg/dL (0.8-1.3); EST CRCL DRUG DOSING (CG) 88.26 mL/min; PROTEIN TOTAL,TP 7.7 g/dL (6.4-8.2)
[2023-11-11 08:10] LABS: POTASSIUM,K 3.3 mmol/L (3.5-5.1)
== END 2023-11-11 07:59 | disposition home or self-care (01) ==
LOC: MW.ED 05:47
DX: F41.9 Anxiety disorder, unspecified (principal); R07.9 Chest pain, unspecified; R68.84 Jaw pain; K02.9 Dental caries, unspecified; G89.29 Other chronic pain; I10 Essential (primary) hypertension; E78.00 Pure hypercholesterolemia, unspecified; F17.210 Nicotine dependence, cigarettes, uncomplicated; Z79.899 Other long term (current) drug therapy; Z88.0 Allergy status to penicillin; Z88.5 Allergy status to narcotic agent; Z88.8 Allergy status to other drugs, medicaments and biological substances
CPT/HCPCS: 36415; 71045; 80053; 83690; 83880; 84484; 85025; 93005; 96372; 99285; A9270; J1885; 93010

== ENCOUNTER 2023-11-11 11:47 | Emergency (ER) | payer OTHER ==
[2023-11-11] MEDS: Acetaminophen/HYDROcodone 325-5 MG Tab PO ONE (13:18)
[2023-11-11 13:26] VITALS: BP 130/78; PULSE 78
== END 2023-11-11 13:25 | disposition home or self-care (01) ==
LOC: MW.ED 11:47
DX: K08.89 Other specified disorders of teeth and supporting structures (principal); I10 Essential (primary) hypertension; E78.00 Pure hypercholesterolemia, unspecified; Z88.0 Allergy status to penicillin; Z88.8 Allergy status to other drugs, medicaments and biological substances; Z79.899 Other long term (current) drug therapy; Z75.8 Other problems related to medical facilities and other health care; Z90.49 Acquired absence of other specified parts of digestive tract
CPT/HCPCS: 99282; A9270

== ENCOUNTER 2023-11-11 15:59 | Emergency (ER) | payer OTHER ==
[2023-11-11 16:19] VITALS: BP 120/87; PULSE 117
== END 2023-11-11 16:49 | disposition left against medical advice (07) ==
LOC: MW.ED 15:59
DX: Z53.21 Procedure and treatment not carried out due to patient leaving prior to being seen by health care provider (principal)

== ENCOUNTER 2023-11-11 20:49 | Emergency (ER) | payer OTHER ==
[2023-11-11 21:30] VITALS: BP 145/88; PULSE 80
[2023-11-11] MEDS: Ondansetron 4 MG Tab.DIS PO ONE (21:34)
== END 2023-11-11 21:38 | disposition home or self-care (01) ==
LOC: MW.ED 20:49
DX: R11.10 Vomiting, unspecified (principal); I10 Essential (primary) hypertension; E78.00 Pure hypercholesterolemia, unspecified; Z88.0 Allergy status to penicillin; Z88.8 Allergy status to other drugs, medicaments and biological substances; Z79.899 Other long term (current) drug therapy; Z90.49 Acquired absence of other specified parts of digestive tract; Z75.8 Other problems related to medical facilities and other health care
CPT/HCPCS: 99283; A9270

== ENCOUNTER 2023-11-12 09:02 | Emergency (ER) | payer OTHER ==
[2023-11-12 10:54] LABS: BASOPHILS ABSOLUTE AUTO 0.05 K/uL (0.00-0.20); BASOPHILS PERCENT AUTO 0.3 % (0.0-1.0); EOSINOPHILS ABSOLUTE AUTO 0.12 K/uL (0.00-0.45); EOSINOPHILS PERCENT AUTO 0.8 % (0.0-6.0); HEMATOCRIT 39.5 % (42.0-52.0); HEMOGLOBIN 13.7 g/dL (14.0-18.0); IMMATURE GRAN ABSOLUTE AUTO 0.03 K/uL (0.00-0.05); IMMATURE GRAN PERCENT AUTO 0.2 % (0.0-0.4); LYMPHOCYTES ABSOLUTE AUTO 2.24 K/uL (1.00-4.80); LYMPHOCYTES PERCENT AUTO 14.9 % (24.0-44.0); MEAN CORPUSCULAR HGB CONC 34.7 g/dL (32.0-36.0); MEAN CORPUSCULAR VOLUME 83.5 fL (83.0-99.0); MEAN PLATELET VOLUME 9.5 fL (9.4-12.4); MONOCYTES ABSOLUTE AUTO 1.01 K/uL (0.00-0.80); MONOCYTES PERCENT AUTO 6.7 % (0.0-8.0); NEUTROPHILS PERCENT AUTO 77.1 % (41.0-71.0); PLATELET COUNT,PLT 225 K/uL (150-400); RED BLOOD CELL COUNT 4.73 M/uL (4.52-5.90); WHITE BLOOD CELL COUNT,WBC 15.05 K/uL (3.9-11.3)
[2023-11-12] MEDS: Alum Hydrox/Mag Hydrox/Simeth 15 ML, Lidocaine 2% 5 ML PO ONE (10:55)
[2023-11-12 11:23] LABS: A/G RATIO 1.3 (0.9-1.6); ALBUMIN 4.2 g/dL (3.4-5.0); BILIRUBIN TOTAL 0.8 mg/dL (0.2-1.0); CALCIUM 8.9 mg/dL (8.5-10.1); CARBON DIOXIDE,CO2 27.7 mmol/L (21.0-32.0); CREATININE 0.8 mg/dL (0.8-1.3); EST CRCL DRUG DOSING (CG) 99.3 mL/min; MAGNESIUM 2.1 mg/dL (1.8-2.4); POTASSIUM,K 3.5 mmol/L (3.5-5.1); PROTEIN TOTAL,TP 7.5 g/dL (6.4-8.2)
[2023-11-12 14:04] VITALS: BP 124/79; PULSE 64
== END 2023-11-12 14:03 | disposition home or self-care (01) ==
LOC: MW.ED 09:02
DX: R07.89 Other chest pain (principal); I10 Essential (primary) hypertension; Z88.0 Allergy status to penicillin; Z88.8 Allergy status to other drugs, medicaments and biological substances; Z79.899 Other long term (current) drug therapy; Z75.8 Other problems related to medical facilities and other health care; Z90.49 Acquired absence of other specified parts of digestive tract
CPT/HCPCS: 36415; 71045; 80053; 83690; 83735; 84484; 85025; 93005; 99285; A9270; 93010

== ENCOUNTER 2023-11-12 23:03 | Emergency (ER) | payer OTHER ==
[2023-11-12] MEDS: droPERidol 5 MG/2 ML SDV IM ONE (23:42)
[2023-11-12 23:45] VITALS: PULSE 78
[2023-11-12 23:50] VITALS: BP 122/70
== END 2023-11-12 23:49 | disposition home or self-care (01) ==
LOC: MW.ED 23:03
DX: R51.9 Headache, unspecified (principal); F41.9 Anxiety disorder, unspecified; I10 Essential (primary) hypertension; E78.00 Pure hypercholesterolemia, unspecified; Z90.49 Acquired absence of other specified parts of digestive tract; Z86.59 Personal history of other mental and behavioral disorders; Z79.899 Other long term (current) drug therapy; Z88.0 Allergy status to penicillin; Z88.5 Allergy status to narcotic agent; Z88.8 Allergy status to other drugs, medicaments and biological substances
CPT/HCPCS: 96372; 99283; J1790

== ENCOUNTER 2023-11-13 08:30 | Emergency (ER) | payer OTHER ==
[2023-11-13] MEDS: LORazepam 1 MG Tab PO ONE (08:53)
[2023-11-13 08:54] LABS: BASOPHILS ABSOLUTE AUTO 0.03 K/uL (0.00-0.20); BASOPHILS PERCENT AUTO 0.3 % (0.0-1.0); HEMATOCRIT 41.6 % (42.0-52.0); HEMOGLOBIN 14.1 g/dL (14.0-18.0); IMMATURE GRAN ABSOLUTE AUTO 0.03 K/uL (0.00-0.05); IMMATURE GRAN PERCENT AUTO 0.3 % (0.0-0.4); LYMPHOCYTES ABSOLUTE AUTO 3.98 K/uL (1.00-4.80); LYMPHOCYTES PERCENT AUTO 38.8 % (24.0-44.0); MEAN CORPUSCULAR HEMOGLOBIN 28.8 pg (28.0-32.0); MEAN CORPUSCULAR HGB CONC 33.9 g/dL (32.0-36.0); MEAN CORPUSCULAR VOLUME 84.9 fL (83.0-99.0); MEAN PLATELET VOLUME 9.6 fL (9.4-12.4); MONOCYTES PERCENT AUTO 7.8 % (0.0-8.0); NEUTROPHILS ABSOLUTE AUTO 5.21 K/uL (1.80-7.70); NEUTROPHILS PERCENT AUTO 50.8 % (41.0-71.0); PLATELET COUNT,PLT 239 K/uL (150-400); WHITE BLOOD CELL COUNT,WBC 10.25 K/uL (3.9-11.3)
[2023-11-13 09:20] LABS: A/G RATIO 1.1 (0.9-1.6); BILIRUBIN TOTAL 0.7 mg/dL (0.2-1.0); CALCIUM 8.8 mg/dL (8.5-10.1); CARBON DIOXIDE,CO2 27.5 mmol/L (21.0-32.0); CREATININE 0.9 mg/dL (0.8-1.3); EST CRCL DRUG DOSING (CG) 88.26 mL/min; POTASSIUM,K 3.3 mmol/L (3.5-5.1); PROTEIN TOTAL,TP 7.5 g/dL (6.4-8.2)
[2023-11-13 09:52] VITALS: BP 128/88; PULSE 87
== END 2023-11-13 09:52 | disposition home or self-care (01) ==
LOC: MW.ED 08:30
DX: R07.9 Chest pain, unspecified (principal); F41.9 Anxiety disorder, unspecified; I10 Essential (primary) hypertension; E78.00 Pure hypercholesterolemia, unspecified; Z90.49 Acquired absence of other specified parts of digestive tract; Z79.899 Other long term (current) drug therapy; Z88.0 Allergy status to penicillin; Z88.8 Allergy status to other drugs, medicaments and biological substances; Z88.5 Allergy status to narcotic agent; Z75.8 Other problems related to medical facilities and other health care
CPT/HCPCS: 36415; 71045; 80053; 84484; 85025; 93005; 99285; A9270

== ENCOUNTER 2024-02-01 20:49 | Emergency (ER) | payer OTHER ==
[2024-02-01 21:03] VITALS: BP 138/82; PULSE 89
[2024-02-01 22:15] LABS: BASOPHILS ABSOLUTE AUTO 0.07 K/uL (0.00-0.20); BASOPHILS PERCENT AUTO 0.7 % (0.0-1.0); EOSINOPHILS ABSOLUTE AUTO 0.18 K/uL (0.00-0.45); EOSINOPHILS PERCENT AUTO 1.8 % (0.0-6.0); HEMATOCRIT 39.8 % (42.0-52.0); HEMOGLOBIN 13.5 g/dL (14.0-18.0); IMMATURE GRAN ABSOLUTE AUTO 0.02 K/uL (0.00-0.05); IMMATURE GRAN PERCENT AUTO 0.2 % (0.0-0.4); LYMPHOCYTES ABSOLUTE AUTO 2.89 K/uL (1.00-4.80); LYMPHOCYTES PERCENT AUTO 29.1 % (24.0-44.0); MEAN CORPUSCULAR HEMOGLOBIN 28.7 pg (28.0-32.0); MEAN CORPUSCULAR HGB CONC 33.9 g/dL (32.0-36.0); MEAN CORPUSCULAR VOLUME 84.7 fL (83.0-99.0); MEAN PLATELET VOLUME 9.5 fL (9.4-12.4); MONOCYTES ABSOLUTE AUTO 0.68 K/uL (0.00-0.80); MONOCYTES PERCENT AUTO 6.8 % (0.0-8.0); NEUTROPHILS ABSOLUTE AUTO 6.09 K/uL (1.80-7.70); NEUTROPHILS PERCENT AUTO 61.4 % (41.0-71.0); PLATELET COUNT,PLT 263 K/uL (150-400); WHITE BLOOD CELL COUNT,WBC 9.93 K/uL (3.9-11.3)
[2024-02-01 22:43] LABS: A/G RATIO 1.5 (0.9-1.6); ALBUMIN 4.1 g/dL (3.4-5.0); BILIRUBIN TOTAL 0.4 mg/dL (0.2-1.0); CALCIUM 8.6 mg/dL (8.5-10.1); CREATININE 0.9 mg/dL (0.8-1.3); EST CRCL DRUG DOSING (CG) 88.26 mL/min; POTASSIUM,K 3.7 mmol/L (3.5-5.1); PROTEIN TOTAL,TP 6.9 g/dL (6.4-8.2)
[2024-02-01] MEDS: Acetaminophen/HYDROcodone 325-5 MG Tab PO ONE (23:47)
== END 2024-02-01 23:53 | disposition home or self-care (01) ==
LOC: MW.ED 20:49
DX: R07.9 Chest pain, unspecified (principal); F41.9 Anxiety disorder, unspecified; I10 Essential (primary) hypertension; E78.00 Pure hypercholesterolemia, unspecified; F17.210 Nicotine dependence, cigarettes, uncomplicated; Z79.899 Other long term (current) drug therapy; Z88.5 Allergy status to narcotic agent; Z88.0 Allergy status to penicillin; Z88.8 Allergy status to other drugs, medicaments and biological substances; Z90.49 Acquired absence of other specified parts of digestive tract
CPT/HCPCS: 36415; 71046; 80053; 83690; 84484; 85025; 93005; 99285; A9270; 93010

== ENCOUNTER 2025-01-17 02:23 | Emergency (ER) | payer OTHER ==
[2025-01-17 02:56] LABS: BASOPHILS ABSOLUTE AUTO 0.06 K/uL (0.00-0.20); BASOPHILS PERCENT AUTO 0.8 % (0.0-1.0); EOSINOPHILS ABSOLUTE AUTO 0.25 K/uL (0.00-0.45); EOSINOPHILS PERCENT AUTO 3.3 % (0.0-6.0); IMMATURE GRAN ABSOLUTE AUTO 0.01 K/uL (0.00-0.05); IMMATURE GRAN PERCENT AUTO 0.1 % (0.0-0.4); LYMPHOCYTES ABSOLUTE AUTO 3.03 K/uL (1.00-4.80); LYMPHOCYTES PERCENT AUTO 40.1 % (24.0-44.0); MEAN PLATELET VOLUME 9.6 fL (9.4-12.4); MONOCYTES ABSOLUTE AUTO 0.40 K/uL (0.00-0.80); MONOCYTES PERCENT AUTO 5.3 % (0.0-8.0); NEUTROPHILS ABSOLUTE AUTO 3.81 K/uL (1.80-7.70); NEUTROPHILS PERCENT AUTO 50.4 % (41.0-71.0); NRBC ABSOLUTE 0.00 K/uL (0.00-0.02); NRBC PERCENT 0.0 /100WBC (0.0-0.2); PLATELET COUNT,PLT 255 K/uL (150-400); RED BLOOD CELL COUNT 4.81 M/uL (4.52-5.90); WHITE BLOOD CELL COUNT,WBC 7.56 K/uL (3.9-11.3)
[2025-01-17 03:25] LABS: BLOOD UREA NITROGEN,BUN 10 mg/dL (7.0-18.0); CARBON DIOXIDE,CO2 26.2 mmol/L (21.0-32.0); CHLORIDE,CL 106 mmol/L (98-107); CREATININE 1.0 mg/dL (0.8-1.3); GLUCOSE RANDOM 127 mg/dL (74-106); POTASSIUM,K 3.0 mmol/L (3.5-5.1); SODIUM,NA 141 mmol/L (136-148)
[2025-01-17 03:38] LABS: ESTIMATED GFR 93 mL/min (>60)
[2025-01-17] MEDS: Potassium Chloride 20 MEQ Tab.ER PO ONE (04:11)
[2025-01-17 04:15] VITALS: BP 117/85; PULSE 68
== END 2025-01-17 04:12 | disposition home or self-care (01) ==
LOC: MW.ED 02:23
DX: R07.9 Chest pain, unspecified (principal); E87.6 Hypokalemia; F17.200 Nicotine dependence, unspecified, uncomplicated; I10 Essential (primary) hypertension; E78.00 Pure hypercholesterolemia, unspecified; Z90.49 Acquired absence of other specified parts of digestive tract; Z79.899 Other long term (current) drug therapy; Z88.0 Allergy status to penicillin; Z88.5 Allergy status to narcotic agent; Z88.8 Allergy status to other drugs, medicaments and biological substances
CPT/HCPCS: 36415; 71045; 80048; 84484; 85025; 93005; 99285; A9270